=== PATIENT | female | born 1955 | race Caucasian/White ===

== ENCOUNTER 2016-05-03 09:55 | Emergency (ER) | payer OTHER ==
[~2016-05-03] VITALS: Ht 160 cm; Wt 73.4 kg
[~2016-05-03 09:55] MED LIST: ASPI81TA21 PO; BACL20TA PO; CHOL100010 PO; DIAZ-165 PO; DICL1GEL12 TOP; DIME1CAP2 PO; GABA800T PO; LRS20 PO; MRPSR/15 PO; OXYC-106 PO; SERT-234 PO; TIZA4CAP PO
[2016-05-03 09:56] VITALS: TEMP 36.8; Ht 160 cm; Wt 73.4 kg
[2016-05-03] MEDS ORDERED: CHOLTAB11 PO (10:17)
[2016-05-03 11:16] LABS: BASO % 0.3 %; BASO ABS # 0.02 K/uL (0-0.2); COMPLETE YES; EOS % 4.2 %; HEMATOCRIT 42.8 % (37-47); IG% 0.4 %; LYMPH % 28.4 %; LYMPH ABS # 1.91 K/uL (1.2-3.4); MEAN CELL VOLUME 91.3 fL (80-100); MEAN PLATELET VOLUME 10.2 fL (7.4-10.4); MONO % 7.9 %; NEUT % 58.8 %; PLATELET COUNT 209 K/uL (130-400); RED BLOOD COUNT 4.69 M/uL (4.2-5.4); WHITE BLOOD COUNT 6.73 K/uL (4.8-10.8)
[2016-05-03 11:24] LABS: PARTIAL THROMBOPLASTIN RATIO 0.9; PROTHROMBIN TIME (PATIENT) 11.1 SECONDS (9.0-12.0)
[2016-05-03 11:32] LABS: BLOOD UREA NITROGEN 16 mg/dl (7-18); BUN/CREATININE RATIO 29.4 (10-20); C-REACTIVE PROTEIN < 0.29 mg/dl (0-0.29); CALCIUM 8.9 mg/dl (8.5-10.1); CARBON DIOXIDE 29 mmol/L (21-32); CHLORIDE 105 mmol/L (98-107); CREATININE 0.54 mg/dl (0.60-1.20); GLUCOSE 93 mg/dl (70-99); SODIUM 140 mmol/L (136-145)
--- NOTE | 2016-05-03 11:58 | DIAGNOSTIC IMAGING REPORT ---
RIGHT UPPER EXTREMITY VENOUS DOPPLER HISTORY: Right arm pain/swelling at IV site Right COMPARISON STUDY: None. FINDINGS: The right internal jugular vein is patent. There is normal flow within the right subclavian vein. There is normal flow and compressibility within the right axillary, basilic, brachial, radial, ulnar, and visualized cephalic veins. Thrombus within a superficial vein of the distal right forearm. IMPRESSION: No DVT within the right upper extremity. Thrombosed superficial vein within the distal right forearm. Electronically signed by: Waldo Michael M.D. 05/03/2016 11:57 AM Dictated Date/Time: 05/03/2016 11:56 AM
[2016-05-03] MEDS ORDERED: CEPH500C PO (13:10)
--- NOTE | 2016-05-03 13:11 | EMERGENCY ROOM VISIT NOTE ---
History First contact with patient: 10:14 Chief Complaint: SWELLING TO EXTREMITY Stated Complaint: SWOLLEN VEIN IN ARM History of Present Illness The patient is a 60 year old female who presents to the Emergency Department by private vehicle for evaluation of pain and swelling to a vein in the RIGHT arm. The patient has a significant past medical history of multiple sclerosis. She was being treated Saturday through Saturday in the [facility] with high-dose steroids. She reports that she noticed pain and irritation to the vein on the dorsal surface of the RIGHT forearm. She contacted Dr. Jain's office who suggested the patient come to the emergency Department for evaluation of a possible blood clot to the affected arm. The patient complains of some tenderness to palpation to the affected area as well as redness. She denies any fevers, chills, nausea, vomiting, or lymphangitic streaking. She reports no history of blood clots or bleeding disorders. She rates her current discomfort as a 4/10. Review of Systems A complete 10-point Review of Systems was discussed with the patient, with pertinent positives and negatives listed in the History of Present Illness. All remaining Review of Systems questions can be considered negative unless otherwise specified. Past Medical/Surgical History Medical Problems: (1) Cervical spinal stenosis (2) Multiple sclerosis (3) Spinal Stenosis-Lumbar Family History Diabetes mellitus FH: heart disease Social History Smoking Status: Former Smoker Alcohol Use: none Drug Use: none Marital Status: Housing Status: lives with family Occupation Status: employed Current/Historical Medications Scheduled Aspirin Enteric Coated (Ecotrin Or Generic), 81 MG PO HS Baclofen (Lioresal), 20 MG PO BID Cholecalciferol (D-5000), 1 TAB PO DAILY Dimethyl Fumarate (Tecfidera), 240 MG PO BID Gabapentin (Neurontin), 800 MG PO BID Sertraline (Zoloft), 200 MG PO QPM Scheduled PRN Diazepam (Valium), 5 MG PO TID PRN for spasms Diclofenac Sodium (Topical) (Voltaren 1% Top Gel), 1 DOSE TOP QID PRN for Pain Morphine Sulfate (Morphine Sulfate ER), 15 MG PO Q12 PRN for Pain Oxycodone/Acetaminophen 10MG/325MG (Percocet 10MG/325MG), 1 TAB PO BID PRN for Pain Tizanidine (Zanaflex), 4 MG PO TID PRN for UNKN Allergies Coded Allergies: BEE STING (Verified Allergy, Severe, THROAT SWELLING, 05/03/16) Gadolinium Derivatives (Verified Allergy, Severe, THROAT SWELLING WITH CT SCAN DYE, 05/03/16) Iodinated Diagnostic Agents (Verified Allergy, Severe, ANAPHYLAXIS-MRI DYE , 05/03/16) Amoxicillin (Unverified Allergy, Intermediate, RASH, 05/03/16) PT HAS HAD RECENTLY AND NO RASH Interferon Beta-1a (Verified Allergy, Mild, UNSURE, 05/03/16) PER PT-NOT SURE ALLERGY BUT MED STOPPED WORKING ANY MORE Corticosteroids (Verified Allergy, Unknown, UNSURE, 05/03/16) SKIN TESTED WEEK OF 03/24/[address] SIMMONS-NOT ALLERGIC PER PT Cyclobenzaprine (Verified Allergy, Unknown, "SORE ON MY MOUTH." SORE JAW AND EAR., 05/03/16) Hydromorphone (Verified Adverse Reaction, Unknown, UNSURE-BECAME TOO SEDATED-NOT ALLERGIC PER PT, 05/03/16) Physical Exam Vital Signs Date Time Temp Pulse Resp B/P Pulse Ox O2 Delivery O2 Flow Rate FiO2 05/03/16 13:26 71 18 135/69 96 05/03/16 12:15 67 17 125/62 98 Room Air 05/03/16 09:56 36.8 74 18 132/85 99 Room Air Pain Rating (0-10): 4 Physical Exam VITAL SIGNS - Vital signs and nursing notes were reviewed. GENERAL - 60-year-old female appearing her stated age and in noticeable discomfort throughout the exam. MUSCULOSKELETAL - mild erythema noted over the dorsal surface of the mid RIGHT forearm. Mildly tender to palpation. No palpable cords. No warmth to touch. No lethargic streaking. No ecchymosis noted. NEUROLOGIC - SENSORY: Spinothalamic tract was found to be intact with ability to discriminate sharp versus dull sensation at the level of the RIGHT shoulder down to the fingertips. No sensory deficits of the dorsal column were appreciated utilizing light touch for evaluation. VASCULAR - Capillary refill was brisk. +3/5 radial pulse palpated. Medical Decision & Procedures ER Provider Diagnostic Interpretation: Radiological imaging and reports were reviewed by myself. Radiologist's Interpretation as follows: RIGHT UPPER EXTREMITY VENOUS DOPPLER HISTORY: Right arm pain/swelling at IV site Right COMPARISON STUDY: None. FINDINGS: The right internal jugular vein is patent. There is normal flow within the right subclavian vein. There is normal flow and compressibility within the right axillary, basilic, brachial, radial, ulnar, and visualized cephalic veins. Thrombus within a superficial vein of the distal right forearm. IMPRESSION: No DVT within the right upper extremity. Thrombosed superficial vein within the distal right forearm. Laboratory Results 05/03/16 11:00 Red Blood Count 4.69, Mean Corpuscular Volume 91.3, Mean Corpuscular Hemoglobin 32.0, Mean Corpuscular Hemoglobin Concent 35.0, Mean Platelet Volume 10.2, Neutrophils (%) (Auto) 58.8, Lymphocytes (%) (Auto) 28.4, Monocytes (%) (Auto) 7.9, Eosinophils (%) (Auto) 4.2, Basophils (%) (Auto) 0.3, Neutrophils # (Auto) 3.96, Lymphocytes # (Auto) 1.91, Monocytes # (Auto) 0.53, Eosinophils # (Auto) 0.28, Basophils # (Auto) 0.02 05/03/16 11:00 Test 05/03/16 11:00 White Blood Count 6.73 K/uL (4.8-10.8) Red Blood Count 4.69 M/uL (4.2-5.4) Hemoglobin 15.0 g/dL (12.0-16.0) Hematocrit 42.8 % (37-47) Mean Corpuscular Volume 91.3 fL (80-100) Mean Corpuscular Hemoglobin 32.0 pg (25-34) Mean Corpuscular Hemoglobin Concent 35.0 g/dl (32-36) Platelet Count 209 K/uL (130-400) Mean Platelet Volume 10.2 fL (7.4-10.4) Neutrophils (%) (Auto) 58.8 % Lymphocytes (%) (Auto) 28.4 % Monocytes (%) (Auto) 7.9 % Eosinophils (%) (Auto) 4.2 % Basophils (%) (Auto) 0.3 % Neutrophils # (Auto) 3.96 K/uL (1.4-6.5) Lymphocytes # (Auto) 1.91 K/uL (1.2-3.4) Monocytes # (Auto) 0.53 K/uL (0.11-0.59) Eosinophils # (Auto) 0.28 K/uL (0-0.5) Basophils # (Auto) 0.02 K/uL (0-0.2) RDW Standard Deviation 42.9 fL (36.4-46.3) RDW Coefficient of Variation 12.9 % (11.5-14.5) Immature Granulocyte % (Auto) 0.4 % Immature Granulocyte # (Auto) 0.03 K/uL (0.00-0.02) Prothrombin Time 11.1 SECONDS (9.0-12.0) Prothromb Time International Ratio 1.0 (0.9-1.1) Activated Partial Thromboplast Time 22.7 SECONDS (21.0-31.0) Partial Thromboplastin Ratio 0.9 Anion Gap 6.0 mmol/L (3-11) Est Creatinine Clear Calc Drug Dose 106.3 ml/min Estimated GFR () 118.9 Estimated GFR (Non- 102.6 BUN/Creatinine Ratio 29.4 (10-20) Calcium Level 8.9 mg/dl (8.5-10.1) C-Reactive Protein < 0.29 mg/dl (0-0.29) Medications Administered Medications (Trade) Dose Ordered Sig/Dilip Route Start Time Stop Time Status Last Admin Dose Admin Cephalexin Monohydrate (Keflex Cap) 500 mg NOW ONCE PO 05/03/16 13:15 05/03/16 13:16 DC 05/03/16 13:24 500 MG ED Course Patient was seen and evaluated by myself. Labs were drawn, saline lock in place. Ultrasound of the RIGHT upper extremities was obtained. Laboratory results demonstrate no acute leukocytosis, worrisome anemia, or bandemia. Ultrasound results demonstrate from of phlebitis. Laboratory results and imaging studies were reviewed with the patient who acknowledges understanding. She was encouraged to utilize warm moist heat to the area as well as NSAIDs. She was provided Keflex for prophylactic treatment in the event that this is an early cellulitis. The patient was instructed to follow-up with her primary care provider in one week for repeat ultrasound. She was educated on worrisome symptoms for return visit to the emergency department. Patient discharged home in good condition. Medical Decision Given the patient's presentation and exam findings, I did elect to perform the above-mentioned workup. The patient presents today with pain, swelling, and redness after IV site. She has no leukocytosis. Ultrasound demonstrates thrombophlebitis. She will utilize NSAIDs and warm heat to the area. She was prophylactically placed on Keflex. She will follow-up with her primary care provider in one week for repeat ultrasound. She will return for any changing/ worsening symptoms. Patient discharged home afebrile and in good condition. In the evaluation and treatment of this patient, the following differential diagnoses were considered: Cellulitis, dermatitis, foreign body, abscess, amongst others. Impression Primary Impression: Superficial thrombophlebitis Departure Information Dispostion Home / Self-Care Condition GOOD Referrals Avi Dean M.D. (PCP) Patient Instructions ED Phlebitis Superficial, My [facility] Additional Instructions You have been treated in the Emergency Department today for your Phlebitis. This is an irritation of a vein close to the surface of the skin. The irritation you are experiencing can be minimized with warm, moist heat. You can use a washcloth soaked in warm water applied over the affected area. The heat helps to decrease the irritation and soothe the irritation. You were prescribed Keflex to be taken as prescribed. This is an antibiotic. All antibiotics have the potential to cause diarrhea. Stop this medication and contact a medical provider if you were to develop any significant adverse side effects including: wheezing, shortness of breath, passing out, vomiting, or a diffuse rash. Always take antibiotics as directed and COMPLETE the ENTIRE course regardless of the improvement of your symptoms. In addition, you should use: - Regular strength (200 mg/tab) Advil (ibuprofen) 1-2 tabs every 4-6 hours as needed. Do not exceed a dose of 3200 mg per day. Ibuprofen is an anti- inflammatory that will help to decrease the inflammation of the vein and decrease your discomfort. You should return to the Emergency Department if your symptoms worsen despite the treatment plan outlined above, or if you develop the following symptoms: increased pain, swelling, streaking of the affected area, fevers, or movement of the discomfort further up your arm. Problem Qualifiers Primary Impression: Superficial thrombophlebitis Superficial thrombophlebitis-Involved body area: upper extremity Laterality: right Qualified Codes: I80.8 - Phlebitis and thrombophlebitis of other sites
[2016-05-03] MEDS ORDERED: CEPHALEXIN MONOHYDRATE 250 MG CAP PO ONE (13:15)
[2016-05-03 13:26] VITALS: BP 135/69; PULSE 71; O2SAT 96
[2016-07-12] MEDS ORDERED: ALBU18002 INH (14:45)
[2016-07-12] MEDS ORDERED: BENZ100C6 PO (15:13)
[2016-07-12] MEDS ORDERED: GABA1CAP5 PO (15:13)
[2016-07-12] MEDS ORDERED: SUMA100T16 PO (15:13)
[2016-07-12] MEDS ORDERED: BACL10TA PO (15:16)
[2016-11-29] MEDS ORDERED: [UNRECOGNIZED DRUG - REMARK] IV (12:37)
== END 2016-05-03 13:26 | disposition home or self-care (01) ==
LOC: C.EDB 09:56 → C.EDA 13:26
DX: I80.8 Phlebitis and thrombophlebitis of other sites (principal); G35 Multiple sclerosis; Z87.891 Personal history of nicotine dependence; Z79.82 Long term (current) use of aspirin

== ENCOUNTER → 2016-05-10 | Outpatient (CLI) | payer OTHER ==
[~2016-05-10] MED LIST changes: +ALBU18002 INH; +BACL10TA PO; +BENZ100C6 PO; -CHOL100010 PO; +CHOLTAB11 PO; +GABA1CAP5 PO; -LRS20 PO; +SUMA100T16 PO; +[UNRECOGNIZED DRUG - REMARK] IV
--- NOTE | 2016-05-10 14:17 | DIAGNOSTIC IMAGING REPORT ---
CHEST 2 VIEWS ROUTINE CLINICAL HISTORY: ACUTE BRONCHITIS W BRONCHOSPASM COUGH COMPARISON STUDY: 04/05/2016 FINDINGS: The cardiac and mediastinal contours are normal. There is no evidence of focal pulmonary consolidation. There is no evidence of failure. No pleural effusions are visualized.[ There are postsurgical changes within the cervical spine. IMPRESSION: No active disease in the chest. Electronically signed by: Tre Velez M.D. 05/10/2016 2:16 PM Dictated Date/Time: 05/10/2016 2:15 PM
== END | disposition home or self-care (01) ==
LOC: C.RADPV 14:01
PROVIDERS: ATTEND Nurse Practitioner
DX: J20.9 Acute bronchitis, unspecified (principal); R05 Cough

== ENCOUNTER → 2016-05-17 | Outpatient (CLI) | payer OTHER ==
--- NOTE | 2016-05-17 13:21 | DIAGNOSTIC IMAGING REPORT ---
MRI OF THE BRAIN WITHOUT CONTRAST CLINICAL HISTORY: Multiple sclerosis. Optic neuritis. Vision loss. COMPARISON STUDY: MRI of the brain November 30, 2015. TECHNIQUE: Utilizing a 1.5 Bita magnet and dedicated coil, multiplanar, multiecho imaging of the brain was performed without IV contrast. Thin cut FLAIR imaging was performed according to the multiple sclerosis protocol. FINDINGS: There are no areas restricted diffusion. No acute intracranial hemorrhage, midline shift or mass effect is present. Ventricular system is normal. Basilar cisterns are patent. No extra-axial collections are present. Flow-voids for the major intracranial vessels are present. Numerous subcortical and periventricular white matter T2 hyperintense foci are similar to exam of November 30, 2015. No new areas of signal abnormality are identified. Active demyelination is suboptimally assessed on this unenhanced exam. Calvarial signal is maintained. Orbits are unremarkable. Sensitivity for detection of optic neuritis is also diminished on this unenhanced study. IMPRESSION: 1. No acute intracranial findings. 2. No change in numerous white matter T2 hypertense foci since MRI of November 30, 2015. Unchanged appearance of the brain. Electronically signed by: Kedar Narvaez M.D. 05/17/2016 1:19 PM Dictated Date/Time: 05/17/2016 1:12 PM
== END | disposition home or self-care (01) ==
LOC: C.MRIBC 12:20
PROVIDERS: ATTEND Psychiatry & Neurology Neurology
DX: G35 Multiple sclerosis (principal); H46.9 Unspecified optic neuritis

== ENCOUNTER → 2016-06-15 | Outpatient (CLI) | payer OTHER ==
[~2016-06-15] MED LIST changes: +CPR500 PO
[2016-06-19 23:41] LABS: JCV ANTIBODY NEGATIVE; JCV INDEX 0.09
== END | disposition home or self-care (01) ==
LOC: C.LABSPEC 17:39
PROVIDERS: ATTEND Psychiatry & Neurology Neurology
DX: G35 Multiple sclerosis (principal)

== ENCOUNTER → 2016-06-20 | Outpatient (CLI) | payer OTHER ==
[2016-06-20 17:04] LABS: HEMATOCRIT 43.3 % (37-47); MEAN CELL VOLUME 92.3 fL (80-100); MEAN CORPUSCULAR HEMOGLOBIN 31.3 pg (25-34); MEAN CORPUSCULAR HGB CONC 33.9 g/dl (32-36); MEAN PLATELET VOLUME 10.6 fL (7.4-10.4); PLATELET COUNT 222 K/uL (130-400); RED BLOOD COUNT 4.69 M/uL (4.2-5.4); WHITE BLOOD COUNT 5.09 K/uL (4.8-10.8)
[2016-06-20 17:40] LABS: ALT/SGPT 22 U/L (12-78); AST/SGOT 10 U/L (15-37); BLOOD UREA NITROGEN 18 mg/dl (7-18); BUN/CREATININE RATIO 24.1 (10-20); CALCIUM 9.1 mg/dl (8.5-10.1); CARBON DIOXIDE 29 mmol/L (21-32); CHLORIDE 106 mmol/L (98-107); CREATININE 0.75 mg/dl (0.60-1.20); GLUCOSE 92 mg/dl (70-99); POTASSIUM 4.5 mmol/L (3.5-5.1); SODIUM 142 mmol/L (136-145)
[2016-06-20 17:43] LABS: ALB/GLOB RATIO 1.3 (0.9-2); ALKALINE PHOSPHATASE 63 U/L (45-117)
== END | disposition home or self-care (01) ==
LOC: C.LABBC 15:34
PROVIDERS: ATTEND Psychiatry & Neurology Neurology
DX: G35 Multiple sclerosis (principal); R53.83 Other fatigue; E55.9 Vitamin D deficiency, unspecified

== ENCOUNTER → 2016-07-10 | Outpatient (CLI) | payer OTHER ==
[~2016-07-10] MED LIST changes: +NATA1INJ IV; +NRN800 PO
[2016-07-10 16:41] LABS: BASO % 0.3 %; BASO ABS # 0.02 K/uL (0-0.2); COMPLETE YES; EOS % 2.2 %; HEMATOCRIT 41.2 % (37-47); LYMPH % 27.2 %; LYMPH ABS # 1.88 K/uL (1.2-3.4); MEAN CELL VOLUME 92.2 fL (80-100); MEAN CORPUSCULAR HEMOGLOBIN 31.5 pg (25-34); MEAN CORPUSCULAR HGB CONC 34.2 g/dl (32-36); MEAN PLATELET VOLUME 10.6 fL (7.4-10.4); MONO % 8.3 %; PLATELET COUNT 207 K/uL (130-400); RED BLOOD COUNT 4.47 M/uL (4.2-5.4)
== END | disposition home or self-care (01) ==
LOC: C.LAB 15:14
PROVIDERS: ATTEND Surgery
DX: I87.8 Other specified disorders of veins (principal)

== ENCOUNTER 2016-07-19 07:14 | Day surgery (SDC) | payer OTHER ==
[2016-07-12 14:45] VITALS: BMI 28.0
[~2016-07-19] VITALS: Ht 157.5 cm; Wt 70.9 kg
[~2016-07-19 07:14] MED LIST changes: -BACL20TA PO; -CPR500 PO; -DIME1CAP2 PO; -GABA800T PO; +LACTATED RINGER'S 1000ML 1,000 ML IV SCH; -MRPSR/15 PO; -NATA1INJ IV; -NRN800 PO; -[UNRECOGNIZED DRUG - REMARK] IV
[2016-07-19] MEDS ORDERED: FENTANYL CITRATE INJ 50 MCG/1 ML 2 ML VIAL ONE (07:56)
[2016-07-19] MEDS ORDERED: PROPOFOL IV EMULSION 10 MG/ML 20 ML VIAL IV ONE (07:56)
[2016-07-19 08:06] VITALS: BP 116/65; PULSE 58; TEMP 36.7; O2SAT 97; Ht 157.5 cm; Wt 70.9 kg
--- NOTE | 2016-07-19 08:20 | History & Physical Bridge Note ---
H&P Re-Evaluation Bridge Note: I have examined the patient, reviewed the History & Physical and in the interval since the performance of the History & Physical I have noted the following changes of clinical significance: No changes noted procedure explained to pt in waiting room
--- NOTE | 2016-07-19 08:36 | Discharge Instructions ---
Discharge Instructions Date of Service Jul 19, 2016. Visit Reason for Visit: Poor Venous Access Discharge Discharge Diagnosis / Problem: A-port Discharge Goals Goal(s): Improve disease control Activity Recommendations Activity Limitations: as noted below Shower/Bathe: tomorrow Anesthesia . Post Anesthesia Instructions: If you have had General Anesthesia or IV Sedation: * Do not drive today. * Resume driving when surgeon permits. * Do not make important decisions or sign legal documents today. * Call surgeon for: 1. Temperature elevations greater than 101 degrees F. 2. Uncontrollable pain. 3. Excessive bleeding. 4. Persistent nausea and vomiting. 5. Medication intolerance (nausea, vomiting or rash). * For nausea and vomiting use only clear liquids such as: tea, soda, bouillon until nausea subsides, then gradually increase diet as tolerated. * If you have any concerns or questions, call your surgeon's office. If physician is unavailable and it is an emergency, call 911 or go to the nearest emergency room. . Instructions / Follow-Up Instructions / Follow-Up Dr. Mcguire as needed for any questions or concerns Diet Recommendations Recommended Home Diet: no limitations Pending Studies Studies pending at discharge: no Medical Emergencies . Who to Call and When: Medical Emergencies: If at any time you feel your situation is an emergency, please call 911 immediately. . Non-Emergent Contact Non-Emergency issues call your: Surgeon Call Non-Emergent contact if: you have a fever, temperature is above 101.5, your pain is not controlled, wound has increased redness . . "Provider Documentation" section prepared by Enmanuel Woodall.
[2016-07-19] MEDS ORDERED: LIDOCAINE HCL 1% 20 ML VIAL ONE (08:42)
[2016-07-19] MEDS ORDERED: BACITRACIN 50000 UNIT VIAL ONE (08:42)
[2016-07-19] MEDS ORDERED: MIDAZOLAM HCL 1 MG/ML 2ML VIAL ONE (08:44)
[2016-07-19] MEDS ORDERED: CEFAZOLIN SOD 1 GM VIAL ONE (09:09)
[2016-07-19] MEDS ORDERED: LACTATED RINGER'S 1000ML 1,000 ML IV SCH (09:32)
[2016-07-19] MEDS ORDERED: ONDANSETRON INJ 2 MG/ML 2 ML VIAL IV PRN (09:45)
[2016-07-19] MEDS ORDERED: MoRPHine SULFATE 2 MG/ML CARP IV PRN (09:45)
[2016-07-19] MEDS ORDERED: OXYCODONE/ACETAMINOPHEN 5-325 TAB PO PRN (09:45)
--- NOTE | 2016-07-19 09:54 | [facility] Post Operative Brief Note ---
Immediate Operative Summary Operative Date Jul 19, 2016. Pre-Operative Diagnosis Poor venous access Post-Operative Diagnosis Poor venous access Procedure(s) Performed Infusaport Insertion, left subclavian(MRI compatible) Surgeon Dr. Kevin Mcguire Road Engineer [employer] Surgeon(s) Enmanuel Woodall PA-C Estimated Blood Loss 1.25CC Findings as preop Specimens None per surgeon Anesthesia 1 %xyl(10cc) and iv sedation
--- NOTE | 2016-07-19 09:59 | DIAGNOSTIC IMAGING REPORT ---
CHEST ONE VIEW PORTABLE CLINICAL HISTORY: port placement tube position COMPARISON STUDY: No previous studies for comparison. FINDINGS: Central catheter place in superior vena cava. No evidence pneumothorax. Lungs remain clear. IMPRESSION: Central catheter placed in the superior vena cava. No evidence pneumothorax Electronically signed by: Buster Youssef M.D. 07/19/2016 9:57 AM Dictated Date/Time: 07/19/2016 9:49 AM
[2016-07-19] MEDS ORDERED: FENTANYL CITRATE INJ 50 MCG/1 ML 2 ML VIAL IV PRN (10:00)
[2016-07-19] MEDS ORDERED: ATROPINE SULFATE 0.1 MG/ML 5ML SYR IV PRN (10:00)
[2016-07-19] MEDS ORDERED: EpHEDrine SULFATE INJ 50 MG/ML AMP IV PRN (10:00)
--- NOTE | 2016-07-19 10:02 | Anesthesiology Progress Note ---
Anesthesia Post Op Note Date & Time Jul 19, 2016 at 10:01 Vital Signs Pain Intensity: 0 Vital Signs Past 12 Hours Date Time Temp Pulse Resp B/P Pulse Ox O2 Delivery O2 Flow Rate FiO2 07/19/16 09:50 57 18 112/67 95 Mask 10 07/19/16 09:41 36.0 58 14 123/71 100 Mask 10 07/19/16 08:06 36.7 58 18 116/65 97 Room Air Notes Mental Status: alert / awake / arousable, participated in evaluation Pt Amnestic to Procedure: Yes Nausea / Vomiting: adequately controlled Pain: adequately controlled Airway Patency, RR, SpO2: stable & adequate BP & HR: stable & adequate Hydration State: stable & adequate Anesthetic Complications: no major complications apparent
[2016-07-19] MEDS ORDERED: SUMATRIPTAN SUCCINATE 50 MG TAB PO PRN (10:15)
[2016-07-19] MEDS ORDERED: SUMATRIPTAN SUCC TAB 100 MG TAB PO PRN (10:15)
--- NOTE | 2016-07-19 10:16 | OPERATIVE REPORT ---
DATE OF OPERATION: 07/19/2016 PREOPERATIVE DIAGNOSIS: Lack of venous access. POSTOPERATIVE DIAGNOSIS: Same. PROCEDURE: MRI compatible port placed through the left subclavian. SURGEON: Dr. Mcguire. OPERATION AND FINDINGS: SUMMARY: The patient was brought into the operating room theater, roll placed underneath her shoulders linearly. The left chest and neck was prepped with Betadine scrubbing solution and properly draped. Systemic antibiotics was given. The patient was placed in Trendelenburg position. 1% Xylocaine without epinephrine using a total 10 mL throughout the procedure. We infiltrated at the end clavicle. Percutaneously we accessed the subclavian vein. We did not get it at the first passage, on the second passage it was easily appreciated, guidewire followed, fluoroscopically positioned in the superior vena cava, right atrium. At this point, we made a counter incision below this approximately an inch and a half below using more local anesthetic. A transverse incision was made about an inch and a half long, deepened through subcutaneous tissue. We then created a pocket inferior to that to the point that we were able to palpate the reservoir, which we tried and could easily appreciate it through the skin after we denuded some more subcutaneous tissue. At this point, we then passed the guidewire from the puncture site onto this cavity area where we then placed the patient in Trendelenburg position, a 7-[place] introducer was positioned. The catheter was positioned. Fluoroscopically it was in the right ventricle area. We then pulled it back to approximately 22 cm from the insertion site underneath the clavicle where it was in the right atrial area. We then cut the catheter, placed a black ring bolster to secure it in place to the reservoir. We aspirated and flushed quite easily. Then we placed the catheter in previously made pocket and sutured it in 3 places with the 2-0 nylon suture, making sure that it was in good alignment. We closed the wound in multiple layer 2-0 Dexon interrupted then 4-0 Monocryl. Steri-Strips applied. Prior to leaving the room, we reimaged the system. I aspirated percutaneously and flushed easily. Dressing was applied. The procedure was tolerated well by the patient. Estimated blood loss 2 mL. The patient was taken to the recovery room in good condition. I attest to the content of the Intraoperative Record and any orders documented therein. Any exceptio ns are noted below.
[2016-07-19 10:50] VITALS: BP 115/58; PULSE 60; TEMP 36.4; O2SAT 96
[2016-07-19 11:20] VITALS: BP 112/55; PULSE 60; TEMP 36.5; O2SAT 98
[2016-07-19 11:50] VITALS: BP 123/56; PULSE 68; TEMP 36.5; O2SAT 96
--- NOTE | 2016-07-19 12:43 | Medical Student: [facility] ---
Immediate Operative Summary Operative Date Jul 19, 2016. Pre-Operative Diagnosis poor venous access Post-Operative Diagnosis poor venous access Procedure(s) Performed Infusaport insertion in left subclavian vein Surgeon Dr. Mcguire Estimated Blood Loss 1.25 cc Findings none Specimens none Complication(s) None Disposition Recovery Room / PACU
[2016-11-29] MEDS ORDERED: [UNRECOGNIZED DRUG - REMARK] IV (12:37)
[2017-01-10] MEDS ORDERED: OXYC-106 PO (11:42)
[2017-01-10] MEDS ORDERED: CPR500 PO (11:42)
[2017-02-07] MEDS ORDERED: NRN800 PO (10:22)
[2017-02-07] MEDS ORDERED: NATA1INJ IV (10:22)
== END 2016-07-19 11:55 | disposition home or self-care (01) ==
LOC: C.ACU 07:14
PROVIDERS: ATTEND Surgery
DX: I87.8 Other specified disorders of veins (principal); G35 Multiple sclerosis; Z79.82 Long term (current) use of aspirin; Z79.899 Other long term (current) drug therapy

== ENCOUNTER → 2016-10-01 | Outpatient (CLI) | payer OTHER ==
[~2016-10-01] MED LIST changes: +CPR500 PO; -LACTATED RINGER'S 1000ML 1,000 ML IV SCH; +NATA1INJ IV; +NRN800 PO; +[UNRECOGNIZED DRUG - REMARK] IV
--- NOTE | 2016-10-01 12:14 | DIAGNOSTIC IMAGING REPORT ---
RIGHT SHOULDER MIN 2 VIEWS ROUTINE CLINICAL HISTORY: Bilateral shoulder pain. COMPARISON: None FINDINGS: Anterior cervical spine fusion and left subclavian [id number] are incidentally noted. Alignment of the right shoulder is anatomic. There is no fracture or osseous lesion. There is mild arthritis of the AC joint. IMPRESSION: 1. No acute fracture or dislocation of the right shoulder. 2. Moderate osteoarthritis of the right acromioclavicular joint. Electronically signed by: Kedar Narvaez M.D. 10/01/2016 12:13 PM Dictated Date/Time: 10/01/2016 12:12 PM
--- NOTE | 2016-10-01 12:17 | DIAGNOSTIC IMAGING REPORT ---
LEFT HAND MIN 3 VIEWS ROUTINE CLINICAL HISTORY: BILAT SHOULDER Pain, hand JOINT PAIN, SWELL HAND LT/RT COMPARISON: None. DISCUSSION: Significant degenerative change of the interphalangeal joints throughout. Mild degenerative change of the metacarpal phalangeal joints. Mild generalized soft tissue edema. Possible old fracture middle phalanx left third finger. No evidence for acute bony pathology. IMPRESSION: Degenerative change. Soft tissue edema. Electronically signed by: Buster Youssef M.D. 10/01/2016 12:16 PM Dictated Date/Time: 10/01/2016 12:14 PM
--- NOTE | 2016-10-01 12:17 | DIAGNOSTIC IMAGING REPORT ---
LEFT SHOULDER MIN 2 VIEWS ROUTINE CLINICAL HISTORY: Bilateral shoulder pain. COMPARISON: None FINDINGS: A left subclavian [id number] and anterior cervical spine fusion are incidentally noted. No acute fracture is identified. There has been possible previous distal left clavicular resection. Several calcific densities measuring up to 7 mm along the lateral aspect of the left humeral head could reflect calcific tendinitis. IMPRESSION: 1. No acute fracture. 2. Possible calcific tendinitis of the left rotator cuff. Electronically signed by: Kedar Narvaez M.D. 10/01/2016 12:15 PM Dictated Date/Time: 10/01/2016 12:13 PM
--- NOTE | 2016-10-01 12:18 | DIAGNOSTIC IMAGING REPORT ---
RIGHT HAND 3 VIEWS CLINICAL HISTORY: Right hand pain. FINDINGS: 3 views of the right hand are obtained. No prior studies are available for comparison at the time of dictation. The skeletal structures are well mineralized. No fracture is seen. The fifth distal phalanx appears diminutive/truncated. Mild osteoarthritic change is noted involving the interphalangeal joints and the first metacarpophalangeal joint. Minimal erosion is noted at the second through fourth distal interphalangeal joints. The overlying soft tissues are within normal. IMPRESSION: Osteoarthritic change as above, greatest involving the interphalangeal joints. No acute bony abnormality is identified. Electronically signed by: Karson Salas M.D. 10/01/2016 12:16 PM Dictated Date/Time: 10/01/2016 12:14 PM
[2016-10-01 18:23] LABS: BLOOD UREA NITROGEN 15 mg/dl (7-18); BUN/CREATININE RATIO 23.9 (10-20); CALCIUM 9.4 mg/dl (8.5-10.1); CARBON DIOXIDE 29 mmol/L (21-32); CHLORIDE 105 mmol/L (98-107); CREATININE 0.64 mg/dl (0.60-1.20); GLUCOSE 95 mg/dl (70-99); POTASSIUM 4.5 mmol/L (3.5-5.1); SODIUM 140 mmol/L (136-145)
[2016-10-01 18:27] LABS: RHEUMATOID FACTOR < 10.0 U/mL (0-15)
== END | disposition home or self-care (01) ==
LOC: C.LABPVFM 11:35
PROVIDERS: ATTEND Nurse Practitioner
DX: M25.512 Pain in left shoulder (principal); M25.549 Pain in joints of unspecified hand; M25.442 Effusion, left hand; M25.441 Effusion, right hand

== ENCOUNTER → 2016-12-21 | Outpatient (CLI) | payer OTHER ==
[~2016-12-21] MED LIST changes: -NATA1INJ IV; -NRN800 PO
--- NOTE | 2016-12-21 07:51 | DIAGNOSTIC IMAGING REPORT ---
MRI OF THE LEFT KNEE WITHOUT CONTRAST CLINICAL HISTORY: Left knee pain and swelling. Evaluate for meniscal tear. COMPARISON STUDY: Left knee radiographs October 30, 2016. TECHNIQUE: Utilizing a 1.5 Bita magnet and dedicated coil, multiplanar, multiecho imaging of the left knee was performed without intravenous or intraarticular contrast. FINDINGS: Alignment of the left knee is anatomic. There is a small to moderate left knee joint effusion. No marrow edema or marrow replacement is present. Note is made of severe chondrosis within the medial compartment with near complete loss of the cartilage of the medial femoral condyle and medial tibial plateau. There is moderate chondrosis within the patellofemoral compartment and mild chondrosis within the lateral compartment. Associated osteophytosis. The cruciate and collateral ligaments are intact. There is no lateral meniscal tear. The medial meniscus is partially extruded. There is an oblique tear of the body and anterior horn of the medial meniscus. No mass or fluid collection shown adjacent to the left knee. A few small ganglion cysts are incidentally noted posterior to the posterior cruciate ligament. IMPRESSION: 1. Oblique tear of the body and anterior horn of the medial meniscus which is partially extruded. No lateral meniscal tear. 2. Severe chondrosis of the medial compartment, moderate chondrosis of the patellofemoral compartment and mild chondrosis of the lateral compartment with associated osteophytosis. 3. Small to moderate left knee joint effusion. 4. Intact cruciate and collateral ligaments. Electronically signed by: Kedar Narvaez M.D. 12/21/2016 7:50 AM Dictated Date/Time: 12/21/2016 7:44 AM
== END | disposition home or self-care (01) ==
LOC: C.MRIBC 06:43
PROVIDERS: ATTEND Orthopaedic Surgery
DX: S83.242A Other tear of medial meniscus, current injury, left knee, initial encounter (principal); X58.XXXA Exposure to other specified factors, initial encounter; M92.42 Juvenile osteochondrosis of patella, left knee; M25.462 Effusion, left knee

== ENCOUNTER → 2017-01-01 | Outpatient (CLI) | payer OTHER ==
[2017-01-01 10:14] LABS: BASO % 0.6 %; BASO ABS # 0.03 K/uL (0-0.2); COMPLETE YES; EOS % 4.1 %; HEMATOCRIT 39.5 % (37-47); IG% 0.6 %; LYMPH % 44.2 %; LYMPH ABS # 2.28 K/uL (1.2-3.4); MEAN CELL VOLUME 90.4 fL (80-100); MEAN CORPUSCULAR HEMOGLOBIN 30.4 pg (25-34); MEAN CORPUSCULAR HGB CONC 33.7 g/dl (32-36); MONO % 9.5 %; PLATELET COUNT 197 K/uL (130-400); RED BLOOD COUNT 4.37 M/uL (4.2-5.4); WHITE BLOOD COUNT 5.16 K/uL (4.8-10.8)
[2017-01-01 10:29] LABS: BLOOD UREA NITROGEN 14 mg/dl (7-18); BUN/CREATININE RATIO 25.8 (10-20); CALCIUM 9.2 mg/dl (8.5-10.1); CARBON DIOXIDE 30 mmol/L (21-32); CHLORIDE 106 mmol/L (98-107); CREATININE 0.55 mg/dl (0.60-1.20); GLUCOSE 96 mg/dl (70-99); POTASSIUM 4.4 mmol/L (3.5-5.1); SODIUM 141 mmol/L (136-145)
== END | disposition home or self-care (01) ==
LOC: C.CPL 09:17
PROVIDERS: ATTEND Orthopaedic Surgery
DX: Z01.818 Encounter for other preprocedural examination (principal); M17.12 Unilateral primary osteoarthritis, left knee

== ENCOUNTER → 2017-02-27 | Day surgery (SDC) | payer OTHER ==
[2017-02-07 10:23] VITALS: Ht 160 cm; Wt 75.0 kg
[~2017-02-27] VITALS: Ht 160 cm; Wt 75.0 kg
[~2017-02-27] MED LIST changes: +ATROPINE SULFATE 0.1 MG/ML 5ML SYR IV PRN; +CLINDAMYCIN PHOS 150 MG/ML 2 ML VIAL IV SCH; -CPR500 PO; +DEXAMETHASONE SOD INJ 4 MG/ML VIAL ONE; +EpHEDrine SULFATE INJ 50 MG/ML AMP IV PRN; +EpINEphrine INJ 1MG/ML AMP 1 MG/ML AMP IRRIG ONE; +EpINEphrine INJ 1MG/ML AMP 1 MG/ML AMP ONE; +FENTANYL CITRATE INJ 50 MCG/1 ML 2 ML VIAL ONE; -GABA1CAP5 PO; +GLYCOPYRROLATE INJ 0.2 MG/ML VIAL ONE; +KETOROLAC TROMETHAMINE 30 MG/ML VIAL ONE; +LACTATED RINGER'S 1000ML 1,000 ML IV SCH; +LIDOCAINE HCL 2% 2 ML VIAL (20MG/ML) ONE; +MIDAZOLAM HCL 1 MG/ML 2ML VIAL ONE; +NATA1INJ IV; +NRN800 PO; +ONDANSETRON INJ 2 MG/ML 2 ML VIAL IV PRN; +ONDANSETRON INJ 2 MG/ML 2 ML VIAL ONE; -OXYC-106 PO; +OXYCODONE/ACETAMINOPHEN 5-325 TAB PO PRN; +PROPOFOL IV EMULSION 10 MG/ML 20 ML VIAL IV ONE; +ROPIVACAINE 0.5% 5 MG/ML 30 ML VIAL ONE; +SODIUM CHLORIDE 0.9% 1000ML 1,000 ML IV SCH; -[UNRECOGNIZED DRUG - REMARK] IV
--- NOTE | 2017-02-27 06:44 | History & Physical Bridge - SC ---
H&P Re-Evaluation Bridge Note: I have examined the patient, reviewed the History & Physical and in the interval since the performance of the History & Physical I have noted the following changes of clinical significance: No changes noted
--- NOTE | 2017-02-27 10:32 | Discharge Instructions-SurgCtr ---
Discharge Instructions Date of Service Feb 27, 2017. Visit Reason for Visit: Osteoarthritis Of Knee, Tear Of Medial Meniscus Discharge Discharge Diagnosis / Problem: SAME ABOVE Discharge Goals Goal(s): Decrease discomfort, Improve function Activity Recommendations Activity Limitations: as noted below Lifting Limitations: gradually increase as tolerated Exercise/Sports Limitations: until after follow-up appointment Shower/Bathe: tomorrow Anesthesia . Post Anesthesia Instructions: If you have had General Anesthesia or IV Sedation: * Do not drive today. * Resume driving when surgeon permits. * Do not make important decisions or sign legal documents today. * Call surgeon for: 1. Temperature elevations greater than 101 degrees F. 2. Uncontrollable pain. 3. Excessive bleeding. 4. Persistent nausea and vomiting. 5. Medication intolerance (nausea, vomiting or rash). * For nausea and vomiting use only clear liquids such as: tea, soda, bouillon until nausea subsides, then gradually increase diet as tolerated. * If you have any concerns or questions, call your surgeon's office. If physician is unavailable and it is an emergency, call 911 or go to the nearest emergency room. . Instructions / Follow-Up Instructions / Follow-Up MEDICATIONS: * Resume previous medications unless instructed otherwise by your surgeon. * Always take pain medication on a full stomach or with food to avoid upset stomach. * Do not drink alcohol or drive while taking narcotics. * Ibuprofen or Tylenol may be taken if narcotic not needed. SPECIAL CARE INSTRUCTIONS: __ None _X_ Keep extremity elevated and iced x 48 hours; apply ice 20-30 minutes 8-10 times/day. May remove at night. __ Crutches __ May discard when able __ Brace/Post-op shoe __ 24 hrs/day __ Remove at night _X_ Dressing __ Maintain until seen in office, may shower with plastic over site _X_ Remove dressings in 24-48 hours and then may shower _X_ Cover incisions with band-aids after showering __ Do not remove steri-strips Call physician if chills or temperature rises above 102 degrees or pain unrelieved by prescribed pain medications. Office [phone] Diet Recommendations Home Diet: no limitations Procedures Procedures Performed: Left Knee Arthroscopy Partial Lateral Menisectomy Chondroplasty Pending Studies Studies pending at discharge: no Medical Emergencies . Who to Call and When: Medical Emergencies: If at any time you feel your situation is an emergency, please call 911 immediately. . Non-Emergent Contact Non-Emergency issues call your: Primary Care Provider . . "Provider Documentation" section prepared by Jamal Issa. .
[2017-02-27] MEDS: FENTANYL CITRATE INJ 50 MCG/1 ML 2 ML VIAL IV PRN ×3 (10:57→11:08)
--- NOTE | 2017-02-27 10:57 | OPERATIVE REPORT ---
DATE OF OPERATION: 02/27/2017 PREOPERATIVE DIAGNOSES: Medial meniscal tear and chondromalacia of the left knee. POSTOPERATIVE DIAGNOSES: Lateral meniscus tear and chondromalacia of the left knee. PROCEDURE: Left knee diagnostic arthroscopy with chondroplasty and partial lateral meniscectomy. SURGEON: Dr. Jamal Nguyen. METAL SORTER: Jamal Issa PA-C, whose assistance was necessary for positioning of the leg and helping with instrumentation. ANESTHESIA: General. COMPLICATIONS: None. CONDITION: Stable to PACU. INDICATIONS: Yani is a pleasant 61-year-old female, who presented to my office with chronic left knee pain. X-rays did not show much arthritis. MRI showed some medial compartmental arthritis and possible medial meniscus tear. After failing conservative treatment, she elected to undergo arthroscopy. DESCRIPTION OF PROCEDURE: On 02/27/2017, she arrived at [facility] for the above procedure. She was seen in the preoperative holding area and the operative extremity was identified and signed. She was given a preoperative antibiotic and taken back to the operating room, laid on the table in supine position and put under general anesthesia. The left knee was then prepped and draped in sterile fashion. Time-out was done and the patient and operative extremity was properly identified. A scope was introduced into the lateral parapatellar portal. Diagnostic arthroscopy showed no loose bodies in the suprapatellar pouch. There was a little grade 2 chondromalacia off the undersurface of the patella within the trochlea. The scope was brought into the medial compartment. There was grade 3 and grade 4 chondral changes throughout the distal medial femoral condyle and the tibial plateau. The medial meniscus was grossly intact. A medial parapatellar portal was made under direct visualization. A probe was used to probe the medial meniscus and there was no evidence of tears. A shaver was used in the medial compartment to remove any loose chondral fragments and to complete a chondroplasty. The scope was then brought into the trochlea. ACL and PCL were intact. The scope was then brought into the lateral compartment. There was some tearing of the mid body of the lateral meniscus. A shaver was used to remove the torn portions of the meniscus back to stable margins. The majority of the meniscus was intact. There was no cartilage damage in the lateral compartment. The scope was then placed into the medial parapatellar portal. Repeat diagnostic arthroscopy showed no additional pathology. A shaver was used to irrigate the joint and remove any additional tissue fragments. The knee was irrigated. Arthroscopic instruments were removed. Portal sites were closed with 3-0 nylon. The knee was then injected with 30 mL of Naropin and Toradol. She was then placed in a soft compressive dressing, extubated, transferred to a [facility] and taken to the postanesthesia care unit in stable condition. He tolerated the procedure well. I attest to the content of the Intraoperative Record and any orders documented therein. Any exception s are noted below.
[2017-02-27 11:25] VITALS: TEMP 36.7
--- NOTE | 2017-02-27 12:04 | Anesthesia Progress Nt - [facility] ---
Anesthesia Post Op Note Date & Time Feb 27, 2017 at 12:04 Vital Signs Pain Intensity: 4 Vital Signs Past 12 Hours Date Time Temp Pulse Resp B/P (MAP) Pulse Ox O2 Delivery O2 Flow Rate FiO2 02/27/17 11:25 36.7 66 114/63 (80) 97 Room Air 02/27/17 11:18 74 19 02/27/17 11:18 76 19 97 02/27/17 11:16 104/59 02/27/17 11:14 36.9 68 16 113/48 98 Room Air 02/27/17 11:13 73 15 100 02/27/17 11:13 72 15 02/27/17 11:12 74 21 02/27/17 11:12 83 21 100 02/27/17 11:11 113/48 02/27/17 11:07 62 9 02/27/17 11:07 60 9 100 02/27/17 11:06 113/61 02/27/17 11:02 71 16 02/27/17 11:02 72 16 100 02/27/17 11:01 111/54 02/27/17 10:57 66 13 02/27/17 10:57 65 13 100 02/27/17 10:56 108/57 02/27/17 10:52 76 9 100 02/27/17 10:52 76 9 02/27/17 10:51 124/66 02/27/17 10:49 70 14 100 02/27/17 10:49 70 14 02/27/17 10:46 115/60 02/27/17 10:44 72 16 02/27/17 10:44 72 16 100 02/27/17 10:41 119/77 02/27/17 10:39 74 14 02/27/17 10:39 74 14 100 02/27/17 10:36 116/66 02/27/17 10:34 70 21 100 02/27/17 10:34 70 21 02/27/17 10:31 120/72 02/27/17 10:29 36.1 72 12 120/72 100 Diffusion Mask 6 02/27/17 08:29 36.5 63 18 113/74 (87) 99 Room Air Notes Mental Status: alert / awake / arousable, participated in evaluation Pt Amnestic to Procedure: Yes Nausea / Vomiting: adequately controlled Pain: adequately controlled Airway Patency, RR, SpO2: stable & adequate BP & HR: stable & adequate Hydration State: stable & adequate Anesthetic Complications: no major complications apparent
[2017-02-27 12:10] VITALS: BP 117/68; PULSE 63; O2SAT 99
--- NOTE | 2017-02-27 14:18 | [facility] Post Operative Brief Note ---
Immediate Operative Summary Operative Date Feb 27, 2017. Pre-Operative Diagnosis Osteoarthritis of Knee Tear of Medical Meniscus Post-Operative Diagnosis Same Procedure(s) Performed Left Knee Arthroscopy Partial Lateral Menisectomy Chondroplasty Surgeon Dr. Leyda Nguyen Enterprise Architect Manager Surgeon(s) Leyda Issa PA-C Estimated Blood Loss 5 Findings as above Specimens None Complication(s) None Disposition Recovery Room / PACU
== END | disposition home or self-care (01) ==
LOC: X.SURG 07:38
PROVIDERS: ATTEND Orthopaedic Surgery
DX: S83.282A Other tear of lateral meniscus, current injury, left knee, initial encounter (principal); M94.262 Chondromalacia, left knee; X58.XXXA Exposure to other specified factors, initial encounter; Z87.891 Personal history of nicotine dependence

== ENCOUNTER → 2017-05-30 | Outpatient (CLI) | payer OTHER ==
[~2017-05-30] MED LIST changes: -ATROPINE SULFATE 0.1 MG/ML 5ML SYR IV PRN; +BENZ-54 PO; -BENZ100C6 PO; -CLINDAMYCIN PHOS 150 MG/ML 2 ML VIAL IV SCH; -DEXAMETHASONE SOD INJ 4 MG/ML VIAL ONE; -EpHEDrine SULFATE INJ 50 MG/ML AMP IV PRN; -EpINEphrine INJ 1MG/ML AMP 1 MG/ML AMP IRRIG ONE; -EpINEphrine INJ 1MG/ML AMP 1 MG/ML AMP ONE; -FENTANYL CITRATE INJ 50 MCG/1 ML 2 ML VIAL ONE; -GLYCOPYRROLATE INJ 0.2 MG/ML VIAL ONE; -KETOROLAC TROMETHAMINE 30 MG/ML VIAL ONE; -LACTATED RINGER'S 1000ML 1,000 ML IV SCH; -LIDOCAINE HCL 2% 2 ML VIAL (20MG/ML) ONE; -MIDAZOLAM HCL 1 MG/ML 2ML VIAL ONE; -ONDANSETRON INJ 2 MG/ML 2 ML VIAL IV PRN; -ONDANSETRON INJ 2 MG/ML 2 ML VIAL ONE; -OXYCODONE/ACETAMINOPHEN 5-325 TAB PO PRN; -PROPOFOL IV EMULSION 10 MG/ML 20 ML VIAL IV ONE; -ROPIVACAINE 0.5% 5 MG/ML 30 ML VIAL ONE; -SODIUM CHLORIDE 0.9% 1000ML 1,000 ML IV SCH
== END | disposition home or self-care (01) ==
LOC: C.LABPVFM 12:33
PROVIDERS: ATTEND Nurse Practitioner
DX: R39.9 Unspecified symptoms and signs involving the genitourinary system (principal)

== ENCOUNTER → 2017-06-13 | Outpatient (CLI) | payer OTHER ==
[2017-06-13 09:32] LABS: BASO % 0.3 %; BASO ABS # 0.02 K/uL (0-0.2); EOS % 4.5 %; EOS ABS # 0.36 K/uL (0-0.5); HEMATOCRIT 40.7 % (37-47); HEMOGLOBIN 13.9 g/dL (12.0-16.0); IG# 0.02 K/uL (0.00-0.02); LYMPH % 9.2 %; LYMPH ABS # 0.73 K/uL (1.2-3.4); MEAN CELL VOLUME 91.3 fL (80-100); MEAN CORPUSCULAR HEMOGLOBIN 31.2 pg (25-34); MEAN CORPUSCULAR HGB CONC 34.2 g/dl (32-36); MEAN PLATELET VOLUME 10.7 fL (7.4-10.4); MONO % 8.1 %; MONO ABS # 0.64 K/uL (0.11-0.59); NEUT % 77.6 %; NEUT ABS # 6.16 K/uL (1.4-6.5); NUCLEATED RED BLOOD CELL ABS 0.02 K/uL (0-0); PLATELET COUNT 160 K/uL (130-400); RED CELL DISTRIBUTION WIDTH CV 13.7 % (11.5-14.5); RED CELL DISTRIBUTION WIDTH SD 45.7 fL (36.4-46.3); WHITE BLOOD COUNT 7.93 K/uL (4.8-10.8)
[2017-06-13 09:45] LABS: ALT/SGPT 21 U/L (12-78); AST/SGOT 13 U/L (15-37); BLOOD UREA NITROGEN 18 mg/dl (7-18); CARBON DIOXIDE 28 mmol/L (21-32); CREATININE 0.64 mg/dl (0.60-1.20); GLUCOSE 97 mg/dl (70-99); POTASSIUM 4.3 mmol/L (3.5-5.1); SODIUM 139 mmol/L (136-145)
[2017-06-13 09:47] LABS: ALKALINE PHOSPHATASE 73 U/L (45-117); CHOLESTEROL 316 mg/dl (0-200); LDL CHOLESTEROL CALCULATED 182 mg/dl; TOTAL PROTEIN 7.1 gm/dl (6.4-8.2)
== END | disposition home or self-care (01) ==
LOC: C.LAB 07:13
PROVIDERS: ATTEND Physician Assistant
DX: I10 Essential (primary) hypertension (principal); G35 Multiple sclerosis

== ENCOUNTER → 2017-10-24 | Outpatient (CLI) | payer OTHER ==
[~2017-10-24] MED LIST changes: +ASPI-319 PO; -ASPI81TA21 PO
== END | disposition home or self-care (01) ==
LOC: C.LABPVFM 15:31
PROVIDERS: ATTEND Urology
DX: Z87.440 Personal history of urinary (tract) infections (principal)

== ENCOUNTER → 2017-11-27 | Outpatient (CLI) | payer OTHER ==
[2017-11-27 12:58] LABS: BASO % 0.8 %; BASO ABS # 0.04 K/uL (0-0.2); EOS % 6.4 %; EOS ABS # 0.31 K/uL (0-0.5); HEMATOCRIT 38.4 % (37-47); HEMOGLOBIN 12.9 g/dL (12.0-16.0); IG# 0.01 K/uL (0.00-0.02); LYMPH % 42.4 %; LYMPH ABS # 2.05 K/uL (1.2-3.4); MEAN CELL VOLUME 89.9 fL (80-100); MEAN CORPUSCULAR HEMOGLOBIN 30.2 pg (25-34); MEAN CORPUSCULAR HGB CONC 33.6 g/dl (32-36); MONO % 9.5 %; MONO ABS # 0.46 K/uL (0.11-0.59); NEUT % 40.7 %; NEUT ABS # 1.96 K/uL (1.4-6.5); PLATELET COUNT 160 K/uL (130-400); RED CELL DISTRIBUTION WIDTH CV 13.5 % (11.5-14.5); RED CELL DISTRIBUTION WIDTH SD 44.3 fL (36.4-46.3); WHITE BLOOD COUNT 4.83 K/uL (4.8-10.8)
[2017-11-27 13:14] LABS: ALBUMIN 3.8 gm/dl (3.4-5.0); ALKALINE PHOSPHATASE 63 U/L (45-117); ALT/SGPT 19 U/L (12-78); AST/SGOT 12 U/L (15-37); BLOOD UREA NITROGEN 16 mg/dl (7-18); CALCIUM 8.8 mg/dl (8.5-10.1); CARBON DIOXIDE 31 mmol/L (21-32); CREATININE 0.62 mg/dl (0.60-1.20); GLUCOSE 94 mg/dl (70-99); POTASSIUM 3.9 mmol/L (3.5-5.1); SODIUM 142 mmol/L (136-145); TOTAL PROTEIN 6.6 gm/dl (6.4-8.2)
== END | disposition home or self-care (01) ==
LOC: C.LABPVFM 07:34
PROVIDERS: ATTEND Psychiatry & Neurology Neurology
DX: G35 Multiple sclerosis (principal); N39.41 Urge incontinence; E78.5 Hyperlipidemia, unspecified

== ENCOUNTER 2021-07-21 08:52 | Observation (INO) ==
--- NOTE | 2021-07-18 12:54 | Anesthesiology Consultation ---
Date of Service July 18, 2021 Assessment & Plan (1) Encounter for pre-operative examination: - COVID screening: Per assessment on 07/18: No known COVID-19 positive contacts or current COVID-19 related symptoms. Travel screen- traveled to friends house in [place], [place] (friend healthy/vaccinated/masked during visit). Patient vaccinated. Surgeon arranging preop COVID testing. Awaiting results. - Neurology office visit (07/12/21): "Patient has multiple sclerosis which is fairly stable on Ocrevus. She has fatigue and a cognitive disorder which are stable as well. In fact, she looks "brighter" with a little more energy than I have seen her in a while. Her depression is stable as well.Unfortunately she has a severe left knee condition which requires total knee replacement to be done July 21. Recommendations.. Continue Ocrevus.. try not to work more than 4 hours a day as this will likely lead to increased fatigue and weakness.. Follow-up in 3 months" Chart Review Chart Review: Acceptable Risk for Surgery and Patient NOT seen in Pre Admission Testing History Surgery Operation Date: 07/21/21 13:30 Proposed Procedures p Left Total Knee Arthroplasty - Jamal Nguyen, DO Height/Weight Height: 5 ft 3 in Weight: 68.039 kg Allergies Allergy/AdvReac Type Severity Reaction Status Date / Time bee venom protein (honey bee) Allergy Severe THROAT Verified 07/18/21 11:52 SWELLING Gadolinium-Containing Allergy Severe THROAT Verified 07/18/21 11:52 Contrast Medi SWELLING WITH CT SCAN DYE amoxicillin Allergy Mild RASH Verified 07/18/21 11:52 hydromorphone [From Dilaudid] AdvReac Mild "didn't do Verified 07/18/21 11:52 anything for me" interferon beta-1a AdvReac Mild GI UPSET Verified 07/18/21 12:48 [From Avonex] Medications Home Medications Medication Instructions Recorded Confirmed Last Taken aspirin 81 mg tablet,delayed 81 mg PO HS 07/23/18 07/18/21 02/02/20 release (Ecotrin Low Strength) Cbd Oil 0.25 drp PO HS PRN 06/02/19 07/18/21 Unknown albuterol sulfate 90 mcg/actuation 1 - 2 puff INHALATION Q4H PRN #8.5 05/13/20 07/18/21 Unknown aerosol inhaler (ProAir HFA) g gabapentin 800 mg tablet 400 mg PO TID 30 Days #45 tab 03/17/21 07/18/21 Unknown sumatriptan succinate 100 mg 100 mg PO DIRECTED PRN #27 tab 03/20/21 07/18/21 Unknown tablet (Imitrex) cholecalciferol (vitamin D3) 50 50 mcg PO QAM 05/11/21 07/18/21 Unknown mcg (2,000 unit) capsule tizanidine 2 mg tablet 4 mg PO TID PRN #120 tab 05/18/21 07/18/21 Unknown ocrelizumab 30 mg/mL intravenous 600 mg IV Q6MO #20 ml 05/23/21 07/18/21 Unknown solution (Ocrevus) diazepam 5 mg tablet 5 mg PO .COMPLEX PRN 30 Days #60 05/25/21 07/18/21 Unknown tab sertraline 100 mg tablet (Zoloft) 150 mg PO PM 90 Days #135 tab 07/03/21 07/18/21 Unknown baclofen 20 mg tablet 20 mg PO TID 07/18/21 07/18/21 Unknown meloxicam 15 mg tablet (Mobic) 15 mg PO QAM 07/18/21 07/18/21 Unknown Past Medical History Medical History History of COVID-19 DX'D HOME TEST EARLY 04/2021-"SNIFFLES" > RESOLVED Hx of chronic bronchitis LAST INHALER USE 2-3 MONTHS Multiple sclerosis DX'D 1990-F/U 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 WEAKNESS LEFT FACE AND RIGHT FOOT Muscle spasm LEGS R/T MS Personal history of transient ischemic attack (TIA), and cerebral infarction without residual deficits 1991 > no residual effects Stress incontinence RELATED TO MS Past Family History Family History Mother Diabetes Stroke Sister Diabetes Hypertension Denies family history of Ovarian cancer Prostate cancer Myocardial infarction Breast cancer Colorectal cancer Past Surgical History Surgical History History of arthroscopy LEFT KNEE AND RIGHT History of cataract surgery LEFT/RIGHT History of section X3 History of hysterectomy History of repair of rotator cuff RIGHT History of surgery PORT PLACEMENT-REMAINS IN PLACE LEFT UPPER CHEST-FLUSHED REGULARLY History of surgery LEFT CLAVICLE Hx of cervical spine surgery "FUSION" - PT REPORTS FULL ROM Hx of colonoscopy Hx of elbow surgery RIGHT Hx of ovarian cystectomy X5 Hx of spinal surgery X5 - TOTAL OF 5 BACK SURGERIES/1 CERVICAL SURGERY - HAS HARDWARE Hx of surgical amputation of finger RIGHT SMALL FINGER D/T INFECTION 40 YR AGO Social History Smoking Status: Never smoker Do You Dip or Chew Tobacco: No Hx Alcohol Use: Yes Alcohol type: beer Alcohol Intake Frequency Comment: RARELY Hx Substance Use: Yes substance use type: marijuana Substance Use Type Other:: MEDICAL MARIJUANA CARD-TINCTURE PRN FOR MUSCLE SPASMS Last Used Substance Other:: USES EVERY OTHER DAY - DEPENDING ON SPASTICITY Lab Results Anesthesia Preop Results Results Anesthesia Widget: WBC 3.36 K/uL (4.8-10.8) L 07/13/21 Hgb 13.3 g/dL (12.0-16.0) 07/13/21 Hct 40.0 % (37-47) 07/13/21 Plt 207 K/uL (130-400) 07/13/21 Na 142 mmol/L (136-145) 07/13/21 K 4.1 mmol/L (3.5-5.1) 07/13/21 Cl 107 mmol/L (98-107) 07/13/21 CO2 31 mmol/L (21-32) 07/13/21 BUN 28 mg/dl (6-23) H 07/13/21 Creat 0.60 mg/dl (0.6-1.2) 07/13/21 Glucose Level 82 mg/dl (70-99(Fasting)) 07/13/21 PT 10.9 Seconds (9.0-12.0) 07/13/21 PTT 25.7 Seconds (21.0-31.0) 07/13/21 INR 1.0 (0.9-1.1) 07/13/21 Blood Type A Positive 07/13/21 Antibody Screen NEGATIVE 07/13/21 Testing Electrocardiogram Date: 07/13/21 Findings: + NSR @ (62) Chest X-Ray Date: 07/13/21 FINDINGS: Postoperative findings within the cervical spine and left subclavian [id number] are incidentally noted. There is no pneumothorax or pleural effusion. No consolidation or evidence for pulmonary edema. Cardiomediastinal silhouette is normal. Appearance of the chest is unchanged. IMPRESSION: No acute cardiopulmonary findings. Echocardiogram Date: 10/31/20 EF 50-55%. Mild LAD/RAD. Grade II DD. Modeate MR/TR. RVSP 30-40 mmhg.
[~2021-07-21 08:52] MED LIST changes: +ACETAMINOPHEN 500 MG TAB PO SCH; -ALBU18002 INH; -ASPI-319 PO; -BACL10TA PO; -BENZ-54 PO; +BUPIVACAINE 0.25% 30 ML VIAL ONE; +BUPIVACAINE 0.5 % 5 MG/1 ML PF 10ML VIAL ONE; -CHOLTAB11 PO; +DEXAMETHASONE SOD INJ 4 MG/ML VIAL ONE; -DIAZ-165 PO; -DICL1GEL12 TOP; +EPINEPHrine INJ 1 MG/ML AMP ONE; +FAMOTIDINE 20 MG TAB PO SCH; +GABAPENTIN 300 MG CAP PO SCH; +Ketorolac (*for OR use only*) 30 MG, dexAMETHasone 4 MG, KETAMINE HCL (**OR use only) 1... INFIL SCH; +LACTATED RINGER'S 1,000 ML IV SCH; -NATA1INJ IV; -NRN800 PO; -SERT-234 PO; -SUMA100T16 PO; -TIZA4CAP PO; +TRANEXAMIC ACID 1,000 MG **IV Intra-op IV SCH; +TRANEXAMIC ACID 1,000 MG **IV Pre-op IV SCH; +ceFAZolin 1000MG 1,000 MG/7.5 ML SYR IV SCH; +dexAMETHasone 4 MG TAB PO SCH
--- NOTE | 2021-07-21 10:33 | History & Physical Bridge Note ---
Date of Service July 21, 2021 History & Physical Bridge Note I have examined the patient, reviewed the History & Physical and in the interval since the performance of the History & Physical I have noted the following changes of clinical significance: no changes noted
[2021-07-21] MEDS ORDERED: ORTHO JOINT ANESTHETIC ONE (11:10)
[2021-07-21] MEDS ORDERED: fentaNYL citrate 100 MCG/2 ML VIAL ONE ×3 (11:11→13:35)
[2021-07-21] MEDS ORDERED: MIDAZOLAM HCL 1 MG/ML 2ML VIAL ONE (11:11)
[2021-07-21] MEDS ORDERED: PROPOFOL IV EMULSION 10 MG/ML 20 ML VIAL IV ONE (11:12)
[2021-07-21] MEDS ORDERED: ONDANSETRON INJ 2 MG/ML 2 ML VIAL ONE (11:12)
[2021-07-21] MEDS ORDERED: DEXAMETHASONE SOD INJ 4 MG/ML VIAL ONE (11:12)
[2021-07-21] MEDS ORDERED: KETAMINE 50 MG/5 ML SYRINGE ONE (11:46)
[2021-07-21] MEDS ORDERED: HYDROmorphone INJ 2 MG/ML SYR/VIAL ONE (12:06)
--- NOTE | 2021-07-21 12:45 | Operative Report ---
[facility] Post Operative Report Pre & Post Diagnosis Operation Date: 07/21/21 11:40 Pre-Op Diagnosis: Left Knee Osteoarthritis Post-Op Diagnosis: Left Knee Osteoarthritis I identified the patient and participated in the time-out.: Yes Procedure Operation Date: 07/21/21 11:40 Actual Procedures p Left Total Knee Arthroplasty(Left) - Jamal Nguyen DO Surgeon Jamal Nguyen DO Lathe Machinist Jamal Issa PAC Estimated Blood Loss 10 Findings Consistent with Post-Op Diagnosis Specimens Left femoral and tibial bone Complications none Disposition Disposition: Recovery Room Indications Yani is a pleasant 65-year-old female who is been there with chronic increasing left knee pain. Is been very severe recently. X-rays and clinical examination are diagnostic for advanced arthritis of the left knee. After failing conservative treatment, she elected to proceed with a left total knee arthroplasty. Description of Procedure Implants used: I used a Debbie Persona total knee arthroplasty system with a size 6 standard femur, D tibia, 28 oval patella, and a size 11 medial congruent polyethylene bearing. All components were cemented in place with Biomet cement. Yani arrived [facility] for the above procedure. She was seen in the preoperative holding area and the operative extremity was identified and signed. She was given a preoperative antibiotic, TXA, and an adductor nerve block. She was taken back to the operating room and laid on the table in supine position. She was given general anesthesia. The operative knee was then prepped and draped in sterile fashion. A timeout was done, and the patient and the operative extremity was properly identified. A midline incision was made directly over the patella. Dissection was taken down to the extensor mechanism. A subvastus arthrotomy was used. The medial retinaculum was released and the fat pad was mostly excised. The knee was flexed and the ACL, PCL, and meniscus were removed. A drill was sent down the center of the femoral canal followed by an intramedullary marcus. Off that marcus a distal femoral cutting block was placed. 9 mm was resected off the distal femur at 5 of valgus. A posterior referencing AP sizing guide was then placed on the distal femur. The femur measured to be a size 6. 2 drill holes were placed in 3 of external rotation. A 4-in-1 cutting block was then impacted into place. Anterior, posterior, and chamfer cuts were then made. The proximal tibia was then exposed. An external tibial alignment guide was placed. A tibial cut guide was then anchored in place and the proximal tibia was then resected. The posterior aspect of the knee was then opened up and any additional meniscus fragments and osteophytes were removed. The tibia measured to be a size D. The tibial plate was then placed in the appropriate rotation and the tibia was drilled and punched. Trial components were then placed. I used a size 11 medial congruent polyethylene insert. The knee was brought through a full range of motion and felt to be stable. The peg holes for the femoral component were then drilled. The patella was then everted and 9 mm was resected off the posterior aspect of the patella. The patella measured to be a size 28 oval. 3 peg holes were then drilled. A trial patella was placed. The knee was once again brought through a full range of motion and felt to be stable. Trial components were then removed. The surrounding soft tissues were injected with 100 cc of an orthopedic pain control cocktail. All components were then cemented into place with Biomet cement. The final polyethylene insert was then snapped into place. Once cement was dry the tourniquet was deflated. Hemostasis was obtained. A dilute betadyne lavage was then done for 3 minutes. The joint was then irrigated with normal saline solution. The subvastus arthrotomy was then closed with #1 Vicryl suture. The skin was closed with 2-0 Vicryl, 3-0V lock suture, and eleonora. A soft compressive dressing was placed. She was then transferred to a hospital bed and taken to the postanesthesia care unit in stable condition. She tolerated the procedure well. Jamal Issa PA-C, was present for the entire procedure. He was critical for patient positioning, prepping, draping, retraction exposure, wound closure and application of sterile dressing. I attest to the content of the Intraoperative Record and any orders documented therein. Any exceptions are noted below.
[2021-07-21] MEDS ORDERED: ATROPINE SULFATE 0.1 MG/ML 10ML SYR IV PRN (13:21)
[2021-07-21] MEDS ORDERED: ONDANSETRON INJ 2 MG/ML 2 ML VIAL IV PRN ×2 (13:21→14:11)
[2021-07-21] MEDS ORDERED: fentaNYL citrate 100 MCG/2 ML VIAL IV PRN (13:21)
[2021-07-21] MEDS ORDERED: ePHEDrine sulfate 50 MG/ML AMP IV PRN (13:21)
--- NOTE | 2021-07-21 13:59 | XRay Report ---
LEFT KNEE 2 VIEWS History: Left total knee arthroplasty. Degenerative arthritis. Postop. FINDINGS: The patient is status post a left total knee arthroplasty. The hardware is intact. No fract ure or dislocation. Skin eleonora are in place. IMPRESSION: Left total knee arthroplasty. No evidence for hardware complication. ACT 112: Negative or not required by law. Electronically signed by: Waldo Michael M.D. 07/21/2021 1:58 PM
[2021-07-21] MEDS ORDERED: NALOXONE HCL 0.4 MG/1 ML VIAL/CARP IV PRN (14:11)
[2021-07-21] MEDS ORDERED: HYDROmorphone INJ 0.5 MG/0.5 ML SYR IV PRN (14:11)
[2021-07-21] MEDS ORDERED: MAGNESIUM HYDROXIDE SUSP 30 ML UDC PO PRN (14:11)
[2021-07-21] MEDS ORDERED: SUMAtriptan succinate 100 MG TAB PO PRN (14:11)
[2021-07-21] MEDS ORDERED: diazePAM 5 MG TABLET PO PRN ×2 (14:11→15:47)
[2021-07-21] MEDS ORDERED: NON-FORMULARY MEDICATION (Ocrelizumab [Ocrevus] 30 mg/mL solution) IV SCH (14:11)
[2021-07-21] MEDS ORDERED: METOCLOPRAMIDE HCL INJ 5 MG/ML 2 ML VIAL IV PRN (14:11)
[2021-07-21] MEDS ORDERED: tiZANidine HCL 4 MG TABLET PO PRN (14:11)
[2021-07-21] MEDS ORDERED: bisacodyL 10 MG SUPP PR PRN (14:11)
--- NOTE | 2021-07-21 14:53 | Anesthesiology Progress Note ---
Date of Service July 21, 2021 Anesthesia Post Procedure Vital Signs Vital Signs: Temp Pulse Resp BP Pulse Ox 07/21/21 14:14 36.3 C L 73 18 112/68 100 07/21/21 14:00 81 15 109/61 99 07/21/21 13:50 80 18 121/61 100 07/21/21 13:40 69 12 106/67 99 07/21/21 13:30 59 L 12 112/54 L 100 07/21/21 13:20 36.2 C L 62 16 124/60 100 07/21/21 09:55 36.9 C 63 18 124/63 99 Pain Intensity Left Knee: Pain Intensity: 4 Transfer of Care Handoff Completed per policy Notes Mental Status: alert / awake / arousable Patient Amnestic to Procedure: Yes Nausea / Vomiting: adequately controlled Pain: adequately controlled Airway Patency, RR, SpO2: stable & adequate BP & HR: stable & adequate Hydration State: stable & adequate Anesthetic Complications: no major complications apparent
[2021-07-21] MEDS ORDERED: ALBUTEROL HFA 8 GM INHALER INH PRN (15:16)
[2021-07-21] MEDS: KETOROLAC TROMETHAMINE 15 MG/ML VIAL IV SCH ×2 (15:30→22:49)
[2021-07-21] MEDS: BACLOFEN 20 MG TAB PO SCH ×2 (15:44→20:14)
[2021-07-21] MEDS: ACETAMINOPHEN 500 MG TAB PO SCH ×2 (15:45→22:48)
[2021-07-21] MEDS: GABAPENTIN 400 MG CAP PO SCH ×2 (15:46→20:15)
[2021-07-21] MEDS ORDERED: MoRPHine SULFATE 10 MG/ML CARP/VIAL IV PRN (15:46)
[2021-07-21] MEDS: SODIUM CHLORIDE 0.9% 1000ML 1,000 ML IV SCH (15:46)
[2021-07-21] MEDS: ceFAZolin 2000MG 2,000 MG/15 ML SYR IV SCH (17:52)
[2021-07-21] MEDS: oxyCODONE HCL IR 5 MG TAB (IMMEDIATE RELEASE) PO PRN (18:02)
[2021-07-21] MEDS: DOCUSATE SODIUM 100 MG CAP PO SCH (20:13)
[2021-07-21] MEDS: ASPIRIN 81 MG ECTAB PO SCH (20:14)
[2021-07-21] MEDS ORDERED: SERTRALINE HCL 50 MG TABLET PO SCH (21:00)
[2021-07-21] MEDS ORDERED: SENNA 8.6 MG TAB PO SCH (21:00)
[2021-07-22] MEDS: SODIUM CHLORIDE 0.9% 1000ML 1,000 ML IV SCH (01:52)
[2021-07-22] MEDS: oxyCODONE HCL IR 5 MG TAB (IMMEDIATE RELEASE) PO PRN ×2 (02:05→08:22)
[2021-07-22] MEDS: ceFAZolin 2000MG 2,000 MG/15 ML SYR IV SCH (02:07)
[2021-07-22] MEDS: KETOROLAC TROMETHAMINE 15 MG/ML VIAL IV SCH (03:07)
[2021-07-22] MEDS: ACETAMINOPHEN 500 MG TAB PO SCH (05:43)
--- NOTE | 2021-07-22 06:52 | Orthopedic Progress Note ---
Date of Service July 22, 2021 Assessment & Plan (1) Status post left knee replacement: Overall she is doing fairly well. She is having some spasms in her leg from her MS. She will be seen by physical therapy today for ambulation and range of motion exercises. She said that she would feel more comfortable if she were home. She is on aspirin for DVT prophylaxis. I think we can discharge her to home later today. She will follow-up with orthopedics in 2 weeks. Lakeisha Lomeli was seen and examined at bedside this morning. She is not having much pain in her knee but she is complaining of muscle spasms from her MS. She had a rough night last night. She has been up and ambulating to the bathroom. She had no acute events or any other complaints. Review of Systems All systems reviewed & are unremarkable except as noted in HPI & below. Physical Exam On physical examination of the left knee, the dressing is clean and dry. Her leg is out in full extension. She has active dorsiflexion plantarflexion of her left ankle. Results & Data Results & Data Laboratory Results . Diagnostic Findings Postoperative x-rays of the left knee show the prosthesis to be in anatomic alignment without any evidence of fracture, desiccation, or loosening. PG Care Time/CCT Total # of Minutes Spent Total Time Spent with Patient: Total time spent is greater than 50% in coordination of care (as documented) at patient's floor/unit and/or counseling patient: Coding Level of Care Code 64911 Post Operative Follow-Up Diagnoses Status post left knee replacement Z96.652
--- NOTE | 2021-07-22 06:54 | Discharge Summary ---
Date of Service July 22, 2021 Principal Diagnosis Same as "Discharge Diagnosis" noted below under Discharge Instructions. Discharge Exam On physical examination of the left knee, the dressing is clean and dry. Her leg is out in full extension. She has active dorsiflexion plantarflexion of her left ankle. Discharge Data Procedures Performed Operation Date: 07/21/21 11:40 Actual Procedures p Left Total Knee Arthroplasty(Left) - Jamal Nguyen DO Ordered Studies 07/21/21 05:00 US - OR guided needle placemen Routine Hospital Course (1) Status post left knee replacement: On July 21, 2021 Yani arrived at [facility] and underwent a left knee replacement without complication. She had a general anesthetic. Postoperatively she was started on aspirin for DVT prophylaxis and transferred t o the general orthopedic floors. Her hospital course was uneventful. On postop day #1 her vital signs were stable. She was having some issues with muscle spasms due to her MS. She was able to participate well with physical therapy doing ambulation and range of motion exercises. She was then discharged home. She will follow-up with orthopedics in 2 weeks. PG Care Time/CCT Total # of Minutes Spent Total Time Spent with Patient: Total time spent is greater than 50% in coordination of care (as documented) at patient's floor/unit and/or counseling patient: Discharge Plan Discharge Items Patient Disposition: Home - Home Health Services Reason For Visit: Left Knee Osteoarthritis Discharge Diagnosis: Left knee replacement Activity: Per Instructions section Non-emergency contact: Surgeon Call non-emergency contact if: your wound has increased drainage Follow-up/Referrals: Saundra Burnette CRNP [Primary Care Provider] - Diet: Regular Addtl Attending Provider Instructions: Activity and Therapy Recommendations: * If you are using [facility] then therapy will be provided at your home until they feel you have accomplished all of your goals. * If you are using [facility] then Physical Therapy will be provided until they feel you are ready to start Outpatient Physical Therapy. * If you are not using home therapy then Outpatient Physical Therapy should start about 3-5 days from your day of surgery. Therapy will last about 6-10 w eeks * It is important not to put a pillow under your knee when you are relaxing or sleeping. It is just as important to make sure you are getting your knee perfectly straight as it is to regain your knee bend. * You were shown a series of exercises in the hospital. Do these exercises three times each day including the exercises you were shown in physical therapy. * Get up and walk several times each day. For the first four weeks, try not to stand or walk for more than one hour at a time. If you do stand or walk for more than one hour, you will not hurt anything, but your leg will likely swell . * As you feel comfortable, you may change from the walker or crutches to a cane and then to independent walking. Medications: * Narcotic You will likely be sent home from the hospital with a prescription for the narcotic pain medication that worked best throughout your stay. * Aspirin Most patients will be required to take Aspirin 81mg twice a day for 6 weeks after surgery. This is obtained [id number] and a prescription is not necessary. * Other medications may be prescribed for specific circumstances. If you have any questions, please call the office at . * Resume previous home medications unless otherwise instructed TEDs/Elastic Stockings: The white elastic stockings help limit swelling and prevent blood clots from forming in your legs.~ The more you wear them, the more they work. Wear them for six weeks. Dressing Care: The dressing can be changed after physical therapy on postop day #1. Daily dry dressing changes for a few days, especially if the incision is still draining some. If the incision is not draining then you may leave the eleonora open to air. If there is a little bit of drainage or if the eleonora are getting stuck on your clothing then cover the incision with a dry dressing. The eleonora will be removed at your 2 week follow-up appointment. Showering: You may shower 5 days from the day of surgery as long as the incision is no longer draining. You may shower with the eleonora exposed. Let soapy water run over the eleonora and pat them dry. Do not scrub or soak the incision. Things To Watch For: * Drainage from the incision site that occurs more than one week after your surgery. * Increased redness at the incision site. * Fever above 102 degrees Fahrenheit. * Unusual chest pain or shortness of breath. * Call [facility] at with any of the above problems Follow-Up Visit: Follow-up with Dr. Nguyen's PA (Jamal Issa) 2-3 weeks after your day of surgery. He will remove your eleonora and answer any questions. If you have any additional questions or concerns, Dr Nguyen is usually in the office at the same time and will be available An appointment was probably scheduled when you signed-up for surgery in the office. If you have any questions call Office Instructions: More detailed instructions as well as Frequently Asked Questions were provided in a folder by our office when you signed-up for surgery. Please review these instructions when you get home. If you have any further questions or concerns, please feel free to call the office at [phone] Pending Studies at Discharge: No Stand-Alone Forms: My [facility] Medications and DC Order Prescriptions: New oxycodone-acetaminophen 5-325 mg tablet 1 tab PO Q6H PRN (Reason: pain) Qty: 60 RF: 0 Continued gabapentin 800 mg tablet 400 mg PO TID 30 Days Qty: 45 RF: 5 sumatriptan succinate [Imitrex] 100 mg tablet 100 mg PO DIRECTED PRN (Reason: migraine headache) Qty: 27 RF: 3 Ocrevus 30 mg/mL solution 600 mg IV Q6MO Qty: 20 RF: 1 sertraline [Zoloft] 100 mg tablet 150 mg PO PM 90 Days Qty: 135 RF: 1 tizanidine 2 mg tablet 4 mg PO TID PRN (Reason: muscle spasticity) Qty: 120 RF: 6 albuterol sulfate [ProAir HFA] 90 mcg/actuation HFA aerosol inhaler 1 - 2 puff INHALATION Q4H PRN (Reason: Shortness Of Breath) Qty: 8.5 RF: 5 cholecalciferol (vitamin D3) 50 mcg (2,000 unit) capsule 50 mcg PO QAM RF: 0 Cbd Oil 0.25 drp PO HS PRN (Reason: muscle spasms) RF: 0 meloxicam [Mobic] 15 mg tablet 15 mg PO QAM RF: 0 baclofen 20 mg tablet 20 mg PO TID RF: 0 diazepam [Valium] 5 mg tablet 5 mg PO .COMPLEX PRN (Reason: muscle spasms ) RF: 0 Changed aspirin [Ecotrin Low Strength] 81 mg Tablet,Delayed Release (Dr/Ec) 81 mg PO BID 42 Days Qty: 0 RF: 0 Discharge Orders: Discharge Order (Routine); Ordered 07/22/21 Ordered By: Jamal Nguyen Admission Data Admit Date/Time: 07/21/21 13:11 Attending Provider: Jamal Nguyen Admit Provider: Jamal Nguyen Primary Care Provider: Saundra Burnette
[2021-07-22] MEDS ORDERED: dexAMETHasone 4 MG TAB PO SCH (08:00)
[2021-07-22] MEDS: ASPIRIN 81 MG ECTAB PO SCH (08:22)
[2021-07-22] MEDS: DOCUSATE SODIUM 100 MG CAP PO SCH (08:22)
[2021-07-22] MEDS: BACLOFEN 20 MG TAB PO SCH (08:22)
[2021-07-22] MEDS: GABAPENTIN 400 MG CAP PO SCH (08:22)
[2021-07-22] MEDS ORDERED: HEPARIN 100 UNIT/ML 5ML FLUSH FLUSH PRN (08:48)
[2021-07-22] MEDS ORDERED: MULTIVITAMIN TAB PO SCH (09:00)
== END 2021-07-22 12:29 | disposition home health service (06) ==
LOC: 3E 08:52 → ASU 08:52

== ENCOUNTER 2022-04-25 14:41 | Inpatient (IN) ==
[2022-04-25] MEDS ORDERED: OPTIRAY 320 500ml IV ONE (15:01)
--- NOTE | 2022-04-25 15:03 | CT Scan Report ---
CT SCAN OF THE BRAIN WITHOUT IV CONTRAST CLINICAL HISTORY: Strokelike symptoms. Neurological deficit. COMPARISON STUDY: CT of the brain dated 06/10/2014. MRI of the brain dated 01/24/2022. TECHNIQUE: Unenhanced axial CT scan of the brain is performed from the vertex to the skull base. A do se lowering technique was utilized adhering to the principles of ALARA. CT DOSE: 614.27 mGy.cm FINDINGS: Brain parenchyma: There is age-related involutional change noting minimal subcortical and periventric ular microangiopathic disease. There is no hemorrhage, mass effect, or evidence of acute territorial ischemia by CT criteria. Cornejo-white matter differentiation is preserved. No extra-axial fluid collect ion is seen. Ventricles, sulci, cisterns: Prominent secondary to involutional change. Intracranial vasculature: There is atherosclerotic calcification of the cavernous carotid arteries. Calvarium: Unremarkable. Sinuses and mastoids: The paranasal sinuses are clear. The mastoid air cells are well pneumatized. Orbits: The bony orbits are grossly intact. There are bilateral ocular lens implants. IMPRESSION: There is no hemorrhage, mass effect, or evidence of acute territorial ischemia by CT misbah moreno. ACT 112: Negative or not required by law. Electronically signed by: Karson Salas M.D. 04/25/2022 3:01 PM
[2022-04-25 15:20] LABS: Basophils # (auto) 0.01 K/uL (0-0.2); Basophils % (auto) 0.2 %; Eosinophils # (auto) 0.01 K/uL (0-0.50); Eosinophils % (auto) 0.2 %; Hematocrit (blood only) 37.2 % (34.1-44.9); Immature Granulocytes # (auto) 0.01 K/uL (0.00-0.02); Immature Granulocytes % (auto) 0.2 %; Lymphocytes # (auto) 0.62 K/uL (1.2-3.4); Lymphocytes % (auto) 12.4 %; Mean Corpuscular Hemoglobin 31.7 pg (25.0-34.0); Mean Corpuscular Hgb Conc 34.9 g/dL (32.0-36.0); Mean Corpuscular Volume 90.7 fL (80.0-100.0); Mean Platelet Volume 10.2 fL (9.4-12.3); Monocytes # (auto) 0.07 K/uL (0.24-0.82); Monocytes % (auto) 1.4 %; Neutrophils # (auto) 4.28 K/uL (1.4-6.5); Neutrophils % (auto) 85.6 %; Platelet Count 174 K/uL (130-400); RDW Coefficient of Variation 11.9 % (11.5-14.5); RDW Standard Deviation 39.2 fL (36.4-46.3)
--- NOTE | 2022-04-25 15:21 | CT Scan Report ---
CT ANGIOGRAM OF THE BRAIN; CT ANGIOGRAM OF THE NECK CLINICAL HISTORY: Strokelike symptoms. Neurological deficit. COMPARISON STUDY: Unenhanced CT of the brain performed the same day 04/25/2022. TECHNIQUE: Following the IV administration of 111 of Optiray 320, CT angiogram of the head and neck w as performed from the aortic arch to the vertex. Images are reviewed in the axial, sagittal, and vitaliy nal planes. 3-D MIPS images are created and assessed. IV contrast was administered without complicati on. All measurements were calculated based on NASCET criteria. A dose lowering technique was utilize d adhering to the principles of ALARA. CT DOSE: 450.45 mGy.cm FINDINGS: Brain parenchyma: There is age-related involutional change noting minimal microangiopathic disease. T here is no evidence of hemorrhage, mass effect, or acute territorial ischemia noting angiographic pha se technique. There is no evidence of enhancing mass lesion on the angiogram phase images. The ventri cles, sulci, and cisterns are normal in configuration. Cornejo-white matter differentiation is preserved . No extra-axial fluid collection is seen. Thoracic aorta: Visualized portions of the thoracic aorta are normal in caliber. The aortic arch demo nstrates standard 3-vessel anatomy. Right carotid arterial system: The right common carotid artery is widely patent, as on the right inte rnal and external carotid arteries. Left carotid arterial system: The left common carotid artery is widely patent, as are the left internal specialist al and external carotid early. Vertebral arteries: There is mild to moderate stenosis at the origin of the left vertebral artery. Th e vertebral arteries are otherwise widely patent bilaterally noting right-sided dominance. Subclavian arteries: Widely patent bilaterally. Intracranial vasculature: The internal carotid arteries are patent at the skull base, as are the ante rior and middle cerebral arteries bilaterally. The vertebrobasilar system and posterior cerebral antonella joni are widely patent. The right vertebral artery is dominant. There is no aneurysm, high-grade sten osis, or focal vessel cut off seen throughout the intracranial circulation. Jugular veins: Patent bilaterally. Dural sinuses: Patent. Lung apices: Partially visualized upper lobe lung parenchyma appears clear. Soft tissues: The visualized pharyngeal soft tissues are normal in appearance noting angiographic pha se technique. The oropharyngeal airway appears widely patent. The salivary and thyroid glands are nor mal in appearance. No cervical lymphadenopathy is seen. Skeletal structures: The calvarium appears intact. The cervical spine is maintained. Postsurgical arlene nges noted in the cervical spine. No lytic or blastic lesion is seen. Orbits: The bony orbits are intact. Orbital contents are normal as visualized noting bilateral ocular lens implants. Sinuses and mastoids: There is trace mucosal thickening in the right maxillary antrum. The remaining paranasal sinuses are clear. The mastoid air cells are well pneumatized. IMPRESSION: 1. There is no evidence of hemorrhage, mass effect, or acute territorial ischemia noting angiographic phase technique. 2. Unremarkable CT angiogram of the brain. 3. There is mild/moderate stenosis at the origin of the left vertebral artery. 4. Otherwise unremarkable CT angiogram of the neck. ACT 112: Negative or not required by law. Electronically signed by: Karson Salas M.D. 04/25/2022 3:19 PM
[2022-04-25] MEDS ORDERED: SODIUM CHLORIDE 0.9% 10ML FLUSH IV STA (15:24)
[2022-04-25] MEDS ORDERED: STAT IV STA (15:24)
[2022-04-25] MEDS ORDERED: No Aspirin within 24hrs of THROMBOLYTIC-Stroke PO SCH (15:30)
[2022-04-25] MEDS ORDERED: TENECTEPLASE 18 MG in SYRINGE 0 ML IV ONE (15:34)
--- NOTE | 2022-04-25 15:38 | Emergency Department Note ---
Impression & Plan Acute left-sided weakness, Multiple sclerosis, Cerebrovascular accident ED Provider Note Provider: Bennett Stiles MD DATE OF SERVICE: 04/25/2022 CHIEF COMPLAINT: Left-sided weakness HISTORY OF PRESENT ILLNESS: Patient is a 66-year-old female history of multiple sclerosis and back pain and surgeries with spinal stenosis presenting today with onset of neuro symptoms just after 2 PM. Evidently the patient was receiving her Ocrevus infusion upstairs. Had some Benadryl this morning around 930am and received the infusion. She states around between 215 and 230 she had onset of some dizziness and visual disturbance where she was seeing double. States her left side was weak and barely able to move. Brought to the ER for further evaluation. No trauma reported. Patient states that she has numbness of her left side as well. She takes a baby aspirin. Reports a possible stroke or TIA in the 90s. Patient denies any nausea at this time or chest or abdominal pain. Denies headache. Reports a little bit of pain in the left obrien but no history of this or trauma. The infusion center evidently called the charge nurse and advised them that the patient missed her infusion around 2 PM and then by 2:20- 2:30pm she was having focus issues and dizziness issues and then left-sided issues. Patient states this is different than MS issues she is had in the past. Has some chronic vision issues but again she states the double vision and blurriness she is experiencing now is different. PAST MEDICAL HISTORY: As noted above MEDICATIONS: Reviewed home medications includes ASA SOCIAL HISTORY: no other anticoagulation reported PHYSICAL EXAM: GENERAL: alert and oriented in no acute distress on stretcher fatigued in appearance Head: normocephalic and atraumatic EYES: No injection, discharge or icterus. PERRL, EOMI. NECK: Trachea midline. Supple. ENT: Mucous membranes pink and moist. LUNGS: Airway patent. No retractions. Breath sounds clear HEART: Regular rate and rhythm. No chest wall tenderness with a left upper port in place. ABDOMEN: Soft and non-tender, without guarding or rebound. SKIN: Acyanotic, warm, dry, without rashes EXTREMITIES: Without swelling, tenderness or deformity NEUROLOGICAL: Left-sided facial droop. Perhaps some slight drooping of the left eyelid. Minimal effort against gravity of the left arm and leg. Decree sensation left arm and leg as well as a bit on the left face. Intact strength and sensation of the right arm and leg. No significant aphasia but bit slow to speak at times. No significant slurred speech/dysarthria. EK bpm normal sinus rhythm. No PVC or PAC. No acute ST segment elevation or depression with some nonspecific anterior T wave changes. QTc 399. CONTINUOUS CARDIAC MONITORING: was ordered and showed a heart rate of 60s bpm in normal sinus rhythm Patient's laboratory studies and imaging reviewed. Differential includes Infection, dehydration, metabolic abnormality, hypo/hyperglycemia, electrolyte disturbance, anemia, hypoxia, cardiac sources, intracerebral event, toxicologic, neurologic, as well as other pathologies. IMPRESSION/MEDICAL DECISION MAKING: Patient with significant history of multiple sclerosis undergoing infusion of medication for this this afternoon. After infusion patient had onset of left- sided numbness and weakness and strokelike symptoms. Brought here for evaluati on made a stroke alert. On aspirin but no other blood thinners. CT reports by radiology with evidence of acute head bleed or significant vascular abnormality/occlusion. Seen with the [facility] telestroke doctor. Early acute onset with significant deficits in the left side. Patient's later arrives. Discussed with them both as well as the telestroke doctor risks and benefits of thrombolytic therapy. The acute onset seems highly atypical for MS and concerning for CVA. In discussion of risks and benefits including possible 6% risk of bleeding, patient wished to proceed with thrombolytics. This was administered per protocol. Will require ICU monitoring and further care here at the hospital. No significant anemia or leukocytosis on the blood work and no infectious symptoms otherwise recently reported. Water without severe electrolyte abnormalities or signs of renal dysfunction. Patient closely monitored after TNK here with some gradual improvement of weakness and numbness on the left side. Hospitalist as well as the economics instructor made aware. DIAGNOSIS: Left-sided weakness, CVA, multiple sclerosis DISPOSITION: Hospitalist will evaluate Patient was agreeable with this plan. Critical Care I have personally spent 55 minutes of critical care time in the direct management of this patient. This includes bedside care, interpretation of diagnostic studies, and testing, discussion with consultants, patient, and family members, and other required patient management activities. These 55 minutes is in excess of all separately billable procedures. 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 WEAKNESS LEFT FACE AND RIGHT FOOT Muscle spasm LEGS R/T MS Personal history of transient ischemic attack (TIA), and cerebral infarction without residual deficits 1991 > no residual effects Stress incontinence RELATED TO MS Surgical History History of arthroscopy LEFT KNEE AND RIGHT History of cataract surgery LEFT/RIGHT History of section X3 History of hysterectomy History of repair of rotator cuff RIGHT History of surgery PORT PLACEMENT-REMAINS IN PLACE LEFT UPPER CHEST-FLUSHED REGULARLY History of surgery LEFT CLAVICLE Hx of cervical spine surgery "FUSION" - PT REPORTS FULL ROM Hx of colonoscopy Hx of elbow surgery RIGHT Hx of ovarian cystectomy X5 Hx of spinal surgery X5 - TOTAL OF 5 BACK SURGERIES/1 CERVICAL SURGERY - HAS HARDWARE Hx of surgical amputation of finger RIGHT SMALL FINGER D/T INFECTION 40 YR AGO Family History Mother Diabetes Stroke Sister Diabetes Hypertension Denies family history of Ovarian cancer Prostate cancer Myocardial infarction Breast cancer Colorectal cancer Social History Smoking Status: Never smoker Second Hand Exposure: No; Hx Alcohol Use: No Hx Substance Use: Yes Last Used Substance: Days (ago) Last Used Substance Other:: USES EVERY OTHER DAY - DEPENDING ON SPASTICITY Substance Use Type Other:: MEDICAL MARIJUANA CARD-TINCTURE PRN FOR MUSCLE SPASMS Preferred Language: Bahamian Communication Ability: Effective Visual Impairment: No Limitations Hearing Ability: Normal Emergency Department Nurse Required: No Beliefs That Will Affect Care: None marital status: Current Living Situation: Spouse current occupational status: retired 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 How many Children do You have: 3 Feels Safe at Home: Yes Childhood Exposure to Second-Hand Smoke: No caffeine: Yes (Coffee a day ) Dental Care, Regularly: Yes Physical Activity Frequency: Other Physical Activity Frequency Comment: Occasional exercise Seatbelt Use: always Sunscreen Use: Yes Assistive Devices: Walker Allergies Allergies Allergy/AdvReac Type Severity Reaction Status Date / Time bee venom protein (honey bee) Allergy Severe THROAT Verified 04/25/22 16:24 SWELLING Gadolinium-Containing Allergy Severe THROAT Verified 04/25/22 16:24 Contrast Medi SWELLING WITH CT SCAN DYE amoxicillin Allergy Mild RASH Verified 04/25/22 16:24 hydromorphone [From Dilaudid] Allergy Mild Rash Verified 04/25/22 16:24 interferon beta-1a AdvReac Mild GI UPSET Verified 04/25/22 16:24 [From Avonex] Home Meds Home Medications Medication Instructions Recorded Confirmed Cbd Oil 0.25 drp PO HS PRN muscle spasms 06/02/19 04/25/22 cholecalciferol (vitamin D3) 50 50 mcg PO QAM 05/11/21 04/25/22 mcg (2,000 unit) capsule aspirin 81 mg tablet,delayed 81 mg PO QPM 04/25/22 04/25/22 release (Ecotrin Low Strength) sertraline 100 mg tablet (Zoloft) 200 mg PO QPM 04/25/22 04/25/22 Previous Rx's Medication Instructions Recorded sumatriptan succinate 100 mg 100 mg PO DIRECTED PRN migraine 10/30/21 tablet (Imitrex) headache #27 tabs ocrelizumab 30 mg/mL intravenous 600 mg (20 mL) IV Q6MO multiple 11/10/21 solution (Ocrevus) sclerosis #20 mL tizanidine 2 mg tablet 4 mg PO TID PRN muscle spasticity 01/08/22 #120 tabs diazepam 5 mg tablet (Valium) 5 mg PO .COMPLEX PRN muscle spasms 01/10/22 #60 tabs albuterol sulfate 90 mcg/actuation 1 - 2 puff inhalation Q4H PRN 02/01/22 aerosol inhaler (ProAir HFA) Shortness Of Breath #8.5 grams baclofen 20 mg tablet 20 mg PO TID #270 tabs 02/02/22 oxcarbazepine 150 mg tablet 150 mg PO BID #60 tabs 03/09/22 (Trileptal) gabapentin 800 mg tablet 800 mg PO QID Pain 30 days #120 03/23/22 tabs Results & Data (ED) Vital Signs Vital Signs - 24 hr 04/25/22 15:44 04/25/22 15:59 04/25/22 15:16 Temperature Temperature Source Pulse Rate 87 Pulse Rate [Right Apical] 63 62 Pulse Rate from SpO2 Sensor 87 Respiratory Rate 16 16 15 Respiratory Effort / Characteristics Non-Labored Spontaneous Non-Labored Spontaneous Respiratory Depth Normal Normal Respiratory Pattern Regular Regular Blood Pressure Blood Pressure [Right Arm] 128/64 128/77 Blood Pressure Mean Blood Pressure Mean [Right Arm] 85 94 Pulse Oximetry 97 97 96 Oxygen Delivery Method Room Air Room Air Sepsis Recent Fever Within 48 Hours Sepsis New/Unexplained Change in Mental Status Sepsis Action Taken by Nursing 04/25/22 15:20 04/25/22 15:20 04/25/22 15:29 Temperature Temperature Source Pulse Rate 78 Pulse Rate [Right Apical] Pulse Rate from SpO2 Sensor 80 Respiratory Rate 11 L Respiratory Effort / Characteristics Respiratory Depth Respiratory Pattern Blood Pressure 136/68 139/64 Blood Pressure [Right Arm] Blood Pressure Mean 90 89 Blood Pressure Mean [Right Arm] Pulse Oximetry 98 Oxygen Delivery Method Sepsis Recent Fever Within 48 Hours Sepsis New/Unexplained Change in Mental Status Sepsis Action Taken by Nursing 04/25/22 15:29 04/25/22 15:30 04/25/22 15:30 Temperature Temperature Source Pulse Rate 75 72 Pulse Rate [Right Apical] Pulse Rate from SpO2 Sensor 75 72 Respiratory Rate 15 15 Respiratory Effort / Characteristics Respiratory Depth Respiratory Pattern Blood Pressure 133/67 Blood Pressure [Right Arm] Blood Pressure Mean 89 Blood Pressure Mean [Right Arm] Pulse Oximetry 97 98 Oxygen Delivery Method Sepsis Recent Fever Within 48 Hours Sepsis New/Unexplained Change in Mental Status Sepsis Action Taken by Nursing 04/25/22 15:40 04/25/22 15:40 04/25/22 15:50 Temperature Temperature Source Pulse Rate 68 Pulse Rate [Right Apical] Pulse Rate from SpO2 Sensor 68 Respiratory Rate 17 Respiratory Effort / Characteristics Respiratory Depth Respiratory Pattern Blood Pressure 133/69 128/64 Blood Pressure [Right Arm] Blood Pressure Mean 90 85 Blood Pressure Mean [Right Arm] Pulse Oximetry 98 Oxygen Delivery Method Sepsis Recent Fever Within 48 Hours Sepsis New/Unexplained Change in Mental Status Sepsis Action Taken by Nursing 04/25/22 15:50 04/25/22 16:00 04/25/22 16:06 Temperature Temperature Source Pulse Rate 65 62 80 Pulse Rate [Right Apical] Pulse Rate from SpO2 Sensor Respiratory Rate 10 L 15 20 Respiratory Effort / Characteristics Non-Labored Spontaneous Respiratory Depth Normal Respiratory Pattern Regular Blood Pressure 136/68 Blood Pressure [Right Arm] Blood Pressure Mean 90 Blood Pressure Mean [Right Arm] Pulse Oximetry 95 Oxygen Delivery Method Room Air Sepsis Recent Fever Within 48 Hours No Sepsis New/Unexplained Change in Mental Status N/A Sepsis Action Taken by Nursing No Action Required 04/25/22 16:14 Temperature 36.6 C Temperature Source Oral Pulse Rate Pulse Rate [Right Apical] 67 Pulse Rate from SpO2 Sensor Respiratory Rate 20 Respiratory Effort / Characteristics Non-Labored Spontaneous Respiratory Depth Normal Respiratory Pattern Regular Blood Pressure Blood Pressure [Right Arm] 133/65 Blood Pressure Mean Blood Pressure Mean [Right Arm] 87 Pulse Oximetry 98 Oxygen Delivery Method Room Air Sepsis Recent Fever Within 48 Hours Sepsis New/Unexplained Change in Mental Status Sepsis Action Taken by Nursing Laboratory Data 04/25/22 15:07 04/25/22 15:07 Lab Results 04/25/22 04/25/22 04/25/22 Range/Units 15:07 15:07 15:07 WBC 5.00 (4.8-10.8) K/ul RBC 4.10 (3.93-5.22) M/uL Hgb 13.0 (12.0-16.0) g/dl Hct 37.2 (34.1-44.9) % MCV 90.7 (80.0-100.0) fL MCH 31.7 (25.0-34.0) pg MCHC 34.9 (32.0-36.0) g/dL RDW Std Deviation 39.2 (36.4-46.3) fL RDW Coeff of Josef 11.9 (11.5-14.5) % Plt Count 174 (130-400) K/uL MPV 10.2 (9.4-12.3) fL Immature Gran % (Auto) 0.2 % Neut % (Auto) 85.6 % Lymph % (Auto) 12.4 % Winston % (Auto) 1.4 % Eos % (Auto) 0.2 % Baso % (Auto) 0.2 % Neut # (Auto) 4.28 (1.4-6.5) K/uL Lymph # (Auto) 0.62 L (1.2-3.4) K/uL Winston # (Auto) 0.07 L (0.24-0.82) K/uL Eos # (Auto) 0.01 (0-0.50) K/uL Baso # (Auto) 0.01 (0-0.2) K/uL Immature Gran # (Auto) 0.01 (0.00-0.02) K/uL PT 11.4 (9.0-12.0) Seconds INR 1.1 (0.9-1.1) APTT 27.7 (21.0-31.0) Seconds PTT Ratio 1.0 Sodium (136-145) mmol/L Potassium (3.5-5.1) mmol/L Chloride (98-107) mmol/L Carbon Dioxide (21-32) mmol/L Anion Gap (3-11) BUN (6-23) mg/dl Creatinine (0.6-1.2) mg/dl Est Cr Clr Drug Dosing Est GFR ( Amer) ml/min Est GFR (Non-Af Amer) ml/min BUN/Creatinine Ratio (10-20) Glucose (70-99(Fasting)) mg/dl Calcium (8.5-10.1) mg/dl Magnesium (1.7-2.4) mg/dl Total Bilirubin (0.2-1.0) mg/dl AST (13-39) U/L ALT (7-52) U/L Alkaline Phosphatase (34-104) U/L Total Protein (6.0-8.3) gm/dl Albumin (3.4-5.0) gm/dl Globulin (2.5-4.0) gm/dl Albumin/Globulin Ratio (0.9-2) SARS-CoV-2, RNA, NAAT (NEGATIVE) Blood Type A Positive Antibody Screen NEGATIVE 04/25/22 04/25/22 Range/Units 15:07 15:45 WBC (4.8-10.8) K/ul RBC (3.93-5.22) M/uL Hgb (12.0-16.0) g/dl Hct (34.1-44.9) % MCV (80.0-100.0) fL MCH (25.0-34.0) pg MCHC (32.0-36.0) g/dL RDW Std Deviation (36.4-46.3) fL RDW Coeff of Josef (11.5-14.5) % Plt Count (130-400) K/uL MPV (9.4-12.3) fL Immature Gran % (Auto) % Neut % (Auto) % Lymph % (Auto) % Winston % (Auto) % Eos % (Auto) % Baso % (Auto) % Neut # (Auto) (1.4-6.5) K/uL Lymph # (Auto) (1.2-3.4) K/uL Winston # (Auto) (0.24-0.82) K/uL Eos # (Auto) (0-0.50) K/uL Baso # (Auto) (0-0.2) K/uL Immature Gran # (Auto) (0.00-0.02) K/uL PT (9.0-12.0) Seconds INR (0.9-1.1) APTT (21.0-31.0) Seconds PTT Ratio Sodium 135 L (136-145) mmol/L Potassium 3.7 (3.5-5.1) mmol/L Chloride 104 (98-107) mmol/L Carbon Dioxide 28 (21-32) mmol/L Anion Gap 3 (3-11) BUN 11 (6-23) mg/dl Creatinine 0.54 L (0.6-1.2) mg/dl Est Cr Clr Drug Dosing Not Reportable Est GFR ( Amer) 114.0 ml/min Est GFR (Non-Af Amer) 98.3 ml/min BUN/Creatinine Ratio 20.4 H (10-20) Glucose 133 H (70-99(Fasting)) mg/dl Calcium 8.6 (8.5-10.1) mg/dl Magnesium 1.9 (1.7-2.4) mg/dl Total Bilirubin 0.4 (0.2-1.0) mg/dl AST 12 L (13-39) U/L ALT 9 (7-52) U/L Alkaline Phosphatase 48 (34-104) U/L Total Protein 5.8 L (6.0-8.3) gm/dl Albumin 3.7 (3.4-5.0) gm/dl Globulin 2.1 L (2.5-4.0) gm/dl Albumin/Globulin Ratio 1.8 (0.9-2) SARS-CoV-2, RNA, NAAT NEGATIVE (NEGATIVE) Blood Type Antibody Screen Administered Medications Discontinued Medications Tenecteplase 18 mg/ Syringe 3.6 mls @ 43.2 mls/min IV NOW ONE; Protocol Stop: 04/25/22 15:35 Last Admin: 04/25/22 15:28 Dose: 43.2 mls/min Documented By: CARLY Co-signed By: QUYNH Ioversol (Optiray 320 500ml) 111 ml IV ONCE ONE Stop: 04/25/22 15:02 Last Admin: 04/25/22 15:02 Dose: 111 ml Documented By: BABAK Miscellaneous (Stat Iv) 1 each N/A NOW STA Stop: 04/25/22 15:25 Last Admin: 04/25/22 15:31 Dose: 1 each Documented By: CARLY Sodium Chloride (Sodium Chloride 0.9% 10ml Flush) 20 ml IV NOW STA Stop: 04/25/22 15:25 Last Admin: 04/25/22 15:31 Dose: 20 ml Documented By: CARLY Imaging Data Radiologist's Impression: Head CT 04/25/22 14:48 CT SCAN OF THE BRAIN WITHOUT IV CONTRAST CLINICAL HISTORY: Strokelike symptoms. Neurological deficit. COMPARISON STUDY: CT of the brain dated 06/10/2014. MRI of the brain dated 01/24/2022. TECHNIQUE: Unenhanced axial CT scan of the brain is performed from the vertex to the skull base. A dose lowering technique was utilized adhering to the principles of ALARA. CT DOSE: 614.27 mGy.cm FINDINGS: Brain parenchyma: There is age-related involutional change noting minimal subcortical and periventricular microangiopathic disease. There is no hemorrhage, mass effect, or evidence of acute territorial ischemia by CT criteria. Cornejo-white matter differentiation is preserved. No extra-axial fluid collection is seen. Ventricles, sulci, cisterns: Prominent secondary to involutional change. Intracranial vasculature: There is atherosclerotic calcification of the ca vernous carotid arteries. Calvarium: Unremarkable. Sinuses and mastoids: The paranasal sinuses are clear. The mastoid air cells are well pneumatized. Orbits: The bony orbits are grossly intact. There are bilateral ocular lens implants. IMPRESSION: There is no hemorrhage, mass effect, or evidence of acute territorial ischemia by CT criteria. ACT 112: Negative or not required by law. Electronically signed by: Karson Salas M.D. 04/25/2022 3:01 PM Head CTA 04/25/22 14:48 CT ANGIOGRAM OF THE BRAIN; CT ANGIOGRAM OF THE NECK CLINICAL HISTORY: Strokelike symptoms. Neurological deficit. COMPARISON STUDY: Unenhanced CT of the brain performed the same day 04/25/2022. TECHNIQUE: Following the IV administration of 111 of Optiray 320, CT angiogram of the head and neck was performed from the aortic arch to the vertex. Images are reviewed in the axial, sagittal, and coronal planes. 3-D MIPS images are created and assessed. IV contrast was administered without complication. All measurements were calculated based on NASCET criteria. A dose lowering technique was utilized adhering to the principles of ALARA. CT DOSE: 450.45 mGy.cm FINDINGS: Brain parenchyma: There is age-related involutional change noting minimal microangiopathic disease. There is no evidence of hemorrhage, mass effect, or acute territorial ischemia noting angiographic phase technique. There is no evidence of enhancing mass lesion on the angiogram phase images. The ventricles, sulci, and cisterns are normal in configuration. Cornejo-white matter differentiation is preserved. No extra-axial fluid collection is seen. Thoracic aorta: Visualized portions of the thoracic aorta are normal in caliber. The aortic arch demonstrates standard 3-vessel anatomy. Right carotid arterial system: The right common carotid artery is widely patent, as on the right internal and external carotid arteries. Left carotid arterial system: The left common carotid artery is widely patent, as are the left internal and external carotid early. Vertebral arteries: There is mild to moderate stenosis at the origin of the left vertebral artery. The vertebral arteries are otherwise widely patent bilaterally noting right-sided dominance. Subclavian arteries: Widely patent bilaterally. Intracranial vasculature: The internal carotid arteries are patent at the skull base, as are the anterior and middle cerebral arteries bilaterally. The vertebrobasilar system and posterior cerebral arteries are widely patent. The right vertebral artery is dominant. There is no aneurysm, high-grade stenosis, or focal vessel cut off seen throughout the intracranial circulation. Jugular veins: Patent bilaterally. Dural sinuses: Patent. Lung apices: Partially visualized upper lobe lung parenchyma appears clear. Soft tissues: The visualized pharyngeal soft tissues are normal in appearance noting angiographic phase technique. The oropharyngeal airway appears widely patent. The salivary and thyroid glands are normal in appearance. No cervical lymphadenopathy is seen. Skeletal structures: The calvarium appears intact. The cervical spine is maintained. Postsurgical changes noted in the cervical spine. No lytic or blastic lesion is seen. Orbits: The bony orbits are intact. Orbital contents are normal as visualized noting bilateral ocular lens implants. Sinuses and mastoids: There is trace mucosal thickening in the right maxillary antrum. The remaining paranasal sinuses are clear. The mastoid air cells are well pneumatized. IMPRESSION: 1. There is no evidence of hemorrhage, mass effect, or acute territorial ischemia noting angiographic phase technique. 2. Unremarkable CT angiogram of the brain. 3. There is mild/moderate stenosis at the origin of the left vertebral artery. 4. Otherwise unremarkable CT angiogram of the neck. ACT 112: Negative or not required by law. Electronically signed by: Karson Salas M.D. 04/25/2022 3:19 PM Neck CTA 04/25/22 14:48 CT ANGIOGRAM OF THE BRAIN; CT ANGIOGRAM OF THE NECK CLINICAL HISTORY: Strokelike symptoms. Neurological deficit. COMPARISON STUDY: Unenhanced CT of the brain performed the same day 04/25/2022. TECHNIQUE: Following the IV administration of 111 of Optiray 320, CT angiogram of the head and neck was performed from the aortic arch to the vertex. Images are reviewed in the axial, sagittal, and coronal planes. 3-D MIPS images are created and assessed. IV contrast was administered without complication. All measurements were calculated based on NASCET criteria. A dose lowering technique was utilized adhering to the principles of ALARA. CT DOSE: 450.45 mGy.cm FINDINGS: Brain parenchyma: There is age-related involutional change noting minimal microangiopathic disease. There is no evidence of hemorrhage, mass effect, or acute territorial ischemia noting angiographic phase technique. There is no evidence of enhancing mass lesion on the angiogram phase images. The ventricles, sulci, and cisterns are normal in configuration. Cornejo-white matter differentiation is preserved. No extra-axial fluid collection is seen. Thoracic aorta: Visualized portions of the thoracic aorta are normal in caliber. The aortic arch demonstrates standard 3-vessel anatomy. Right carotid arterial system: The right common carotid artery is widely patent, as on the right internal and external carotid arteries. Left carotid arterial system: The left common carotid artery is widely patent, as are the left internal and external carotid early. Vertebral arteries: There is mild to moderate stenosis at the origin of the left vertebral artery. The vertebral arteries are otherwise widely patent bilaterally noting right-sided dominance. Subclavian arteries: Widely patent bilaterally. Intracranial vasculature: The internal carotid arteries are patent at the skull base, as are the anterior and middle cerebral arteries bilaterally. The vertebrobasilar system and posterior cerebral arteries are widely patent. The right vertebral artery is dominant. There is no aneurysm, high-grade stenosis, or focal vessel cut off seen throughout the intracranial circulation. Jugular veins: Patent bilaterally. Dural sinuses: Patent. Lung apices: Partially visualized upper lobe lung parenchyma appears clear. Soft tissues: The visualized pharyngeal soft tissues are normal in appearance noting angiographic phase technique. The oropharyngeal airway appears widely patent. The salivary and thyroid glands are normal in appearance. No cervical lymphadenopathy is seen. Skeletal structures: The calvarium appears intact. The cervical spine is maintained. Postsurgical changes noted in the cervical spine. No lytic or blastic lesion is seen. Orbits: The bony orbits are intact. Orbital contents are normal as visualized noting bilateral ocular lens implants. Sinuses and mastoids: There is trace mucosal thickening in the right maxillary antrum. The remaining paranasal sinuses are clear. The mastoid air cells are well pneumatized. IMPRESSION: 1. There is no evidence of hemorrhage, mass effect, or acute territorial ischemia noting angiographic phase technique. 2. Unremarkable CT angiogram of the brain. 3. There is mild/moderate stenosis at the origin of the left vertebral artery. 4. Otherwise unremarkable CT angiogram of the neck. ACT 112: Negative or not required by law. Electronically signed by: Karson Salas M.D. 04/25/2022 3:19 PM Discharge Plan Visit Data Chief Complaint: TIA Symptoms Stated Complaint: LEFT SIDES VISUAL DISTURBANCE, STROKE LIKE SYMPTOM ED Provider: Bennett Stiles Discharge Problem: Acute left-sided weakness, Multiple sclerosis, Cerebrovascular accident Patient Disposition: Admitted As Inpatient Condition: Fair Forms Stand Alone Forms: Counts Include 234 B[facility] At [facility] Prescriptions Prescriptions: No Action sumatriptan succinate [Imitrex] 100 mg tablet 100 mg PO DIRECTED PRN (Reason: migraine headache) Qty: 27 3RF Ocrevus 30 mg/mL solution 600 mg IV Q6MO Qty: 20 1RF Rx Instructions: 30 minutes before each infusion, premedicate with methylprednisolone 100mg IV, diphenhydramine 25mg IV, and acetaminophen 500mg PO. May give an additional 25mg diphenhydramine IV during infusion PRN. Keep rate at 160mL/hr at 90 minutes until end of infusion. tizanidine 2 mg tablet 4 mg PO TID PRN (Reason: muscle spasticity) Qty: 120 6RF diazepam [Valium] 5 mg tablet 5 mg PO .COMPLEX PRN (Reason: muscle spasms ) Qty: 60 1RF Rx Instructions: 5 mg PO IN THE AM, 5MG IN THE AFTERNOON AND 10MG QHS PRN albuterol sulfate [ProAir HFA] 90 mcg/actuation HFA aerosol inhaler 1 - 2 puff INHALATION Q4H PRN (Reason: Shortness Of Breath) Qty: 8.5 5RF oxcarbazepine [Trileptal] 150 mg tablet 150 mg PO BID Qty: 60 6RF gabapentin 800 mg tablet 800 mg PO QID 30 Days Qty: 120 5RF baclofen 20 mg tablet 20 mg PO TID Qty: 270 3RF cholecalciferol (vitamin D3) 50 mcg (2,000 unit) capsule 50 mcg PO QAM Cbd Oil 0.25 drp PO HS PRN (Reason: muscle spasms) sertraline [Zoloft] 100 mg tablet 200 mg PO QPM aspirin [Ecotrin Low Strength] 81 mg tablet,delayed release (DR/EC) 81 mg PO QPM Referrals Referrals: Saundra Burnette CRNP [Primary Care Provider] -
[2022-04-25 15:39] LABS: INR 1.1 (0.9-1.1); Partial Thromboplastin Time 27.7 Seconds (21.0-31.0); Prothrombin Time 11.4 Seconds (9.0-12.0)
[2022-04-25 15:52] LABS: Alanine Aminotransferase 9 U/L (7-52); Albumin Globulin Ratio 1.8 (0.9-2); Albumin Level 3.7 gm/dl (3.4-5.0); Alkaline Phosphatase 48 U/L (34-104); Anion Gap 3 (3-11); Aspartate Aminotransferase 12 U/L (13-39); BUN Creatinine Ratio 20.4 (10-20); Bilirubin,Total 0.4 mg/dl (0.2-1.0); Blood Urea Nitrogen 11 mg/dl (6-23); Calcium 8.6 mg/dl (8.5-10.1); Carbon Dioxide 28 mmol/L (21-32); Chloride 104 mmol/L (98-107); Est GFR (Non-African American) 98.3 ml/min; Globulin 2.1 gm/dl (2.5-4.0); Glucose 133 mg/dl (70-99(Fasting)); Magnesium 1.9 mg/dl (1.7-2.4); Potassium 3.7 mmol/L (3.5-5.1); Sodium 135 mmol/L (136-145); Total Protein 5.8 gm/dl (6.0-8.3)
--- NOTE | 2022-04-25 16:03 | History & Physical Report ---
Date of Service April 25, 2022 Assessment & Plan (1) Acute left-sided weakness: Plan: 66yo infusion for MS. L sided weakness, numbness, facial drop CVA s/p TNKase - TNKase @ 1520, sx onset @1400. Improving but not resolved - Aspirin, no blood thinners - No bleed, NO angio findings - SBP goal less than 180, transferred to ICU for post TN K care Repeat CT at 24 hours MRI pending Neuro consulted, received full dose aspirin on admission Plavix recommendatio ns pending MS Receives Ocrevus infusions which she took today. Anxiety/depression Continue sertraline 200 mg p.o. daily Spinal stenosis, chronic back pain Home diazepam, tizanidine, baclofen temporarily held pending swallow evaluation DVT prophylaxis: Indicated in the setting of TNKase Diet: N.p.o., pending speech swallow Disposition: ICU for per stroke protocol CODE STATUS: Full code (2) Depression: (3) Dysphagia: (4) Mild pulmonary hypertension: (5) Multiple sclerosis: History of Present Illness Primary Care Provider: SANDY Guerrier is a 66-year-old female with a past medical history of MS, spinal stenosis, B12 deficiency, hyperlipidemia, and no known history of diabetes who is receiving an infusion for MS when she developed left-sided weakness with dizziness and vision change at approximately [id number], was brought to the ER for evaluation. Telestroke was consulted, patient was recommended to get TNKase which was administered at 1520. Improving but without resolved symptoms following this. Patient is seen at the bedside. Also discussed with nursing staff. On admission patient had left-sided facial droop, arm weakness, leg weakness, and numbness of the left face. Left face was flaccid on attempted cheek puff. Patient had no resistance against gravity on initial assessment with a NIHSS of 13. On reassessment score is 12, but has a greatly reduced drift in left arm and leg compared to prior and facial asymmetry is improving. Some sensation returning to left facial touch. Patient seen at bedside with her present. She reports normally with her MS she has symptoms of generalized weakness in her lower extremities and fatigue, her current episode is completely different. She completed her infusion for MS this morning. Around 2:00 she had sudden onset left-sided arm and leg weakness, left-sided facial droop, and blurry/double vision. No nausea/vomiting, no chest pain, chest pressure. Reports she understood what was being said to her but she had difficulty speaking. Following TNKase she reports that she continues to feel weak on her left side, but less significantly than when she came in. Is still having some trouble speaking but speech is mostly fluent and she does not have any difficulty understanding speech or thinking of the correct words. She does endorse some blurry vision in her left eye, more peripheral and central. Denies history of bleeding/bleeding problems. Denies headache. No fever/chills/sweats. Medical History: Reviewed Medications: Reviewed Surgical History: Reviewed Allergies: Reviewed Social History: No tobacco use, no alcohol use Code Status: Full Allergies Allergy/AdvReac Type Severity Reaction Status Date / Time bee venom protein (honey bee) Allergy Severe THROAT Verified 04/25/22 16:24 SWELLING Gadolinium-Containing Allergy Severe THROAT Verified 04/25/22 16:24 Contrast Medi SWELLING WITH CT SCAN DYE amoxicillin Allergy Mild RASH Verified 04/25/22 16:24 hydromorphone [From Dilaudid] Allergy Mild Rash Verified 04/25/22 16:24 interferon beta-1a AdvReac Mild GI UPSET Verified 04/25/22 16:24 [From Avonex] Home Medications Medication Instructions Recorded Confirmed Type Cbd Oil 0.25 drp PO HS PRN muscle spasms 06/02/19 04/25/22 History cholecalciferol (vitamin D3) 50 50 mcg PO QAM 05/11/21 04/25/22 History mcg (2,000 unit) capsule sumatriptan succinate 100 mg 100 mg PO DIRECTED PRN migraine 10/30/21 04/25/22 Rx tablet (Imitrex) headache #27 tabs ocrelizumab 30 mg/mL intravenous 600 mg (20 mL) IV Q6MO multiple 11/10/21 04/25/22 Rx solution (Ocrevus) sclerosis #20 mL tizanidine 2 mg tablet 4 mg PO TID PRN muscle spasticity 01/08/22 04/25/22 Rx #120 tabs diazepam 5 mg tablet (Valium) 5 mg PO .COMPLEX PRN muscle spasms 01/10/22 04/25/22 Rx #60 tabs albuterol sulfate 90 mcg/actuation 1 - 2 puff inhalation Q4H PRN 10/27/22 01/18/23 Rx aerosol inhaler (ProAir HFA) Shortness Of Breath #8.5 grams baclofen 20 mg tablet 20 mg PO TID #270 tabs 02/02/22 04/25/22 Rx oxcarbazepine 150 mg tablet 150 mg PO BID #60 tabs 03/09/22 04/25/22 Rx (Trileptal) gabapentin 800 mg tablet 800 mg PO QID Pain 30 days #120 03/23/22 04/25/22 Rx tabs aspirin 81 mg tablet,delayed 81 mg PO QPM 04/25/22 04/25/22 History release (Ecotrin Low Strength) sertraline 100 mg tablet (Zoloft) 200 mg PO QPM 04/25/22 04/25/22 History 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 WEAKNESS LEFT FACE AND RIGHT FOOT Muscle spasm LEGS R/T MS Personal history of transient ischemic attack (TIA), and cerebral infarction without residual deficits 1991 > no residual effects Stress incontinence RELATED TO MS Surgical History History of arthroscopy LEFT KNEE AND RIGHT History of cataract surgery LEFT/RIGHT History of section X3 History of hysterectomy History of repair of rotator cuff RIGHT History of surgery PORT PLACEMENT-REMAINS IN PLACE LEFT UPPER CHEST-FLUSHED REGULARLY History of surgery LEFT CLAVICLE Hx of cervical spine surgery "FUSION" - PT REPORTS FULL ROM Hx of colonoscopy Hx of elbow surgery RIGHT Hx of ovarian cystectomy X5 Hx of spinal surgery X5 - TOTAL OF 5 BACK SURGERIES/1 CERVICAL SURGERY - HAS HARDWARE Hx of surgical amputation of finger RIGHT SMALL FINGER D/T INFECTION 40 YR AGO Family History Mother Diabetes Stroke Sister Diabetes Hypertension Denies family history of Ovarian cancer Prostate cancer Myocardial infarction Breast cancer Colorectal cancer Social History Smoking Status: Never smoker Second Hand Exposure: No; Hx Alcohol Use: No Hx Substance Use: Yes Last Used Substance: Days (ago) Last Used Substance Other:: USES EVERY OTHER DAY - DEPENDING ON SPASTICITY Substance Use Type Other:: MEDICAL MARIJUANA CARD-TINCTURE PRN FOR MUSCLE SPASMS Preferred Language: Luxembourger Communication Ability: Effective Visual Impairment: No Limitations Hearing Ability: Normal Body Specialist Required: No Beliefs That Will Affect Care: Hindu marital status: Current Living Situation: Spouse current occupational status: 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 NAD. Cooperative. HEENT: Atraumatic, normocephalic. Pulm: CTAB A&P. -wheezes, -rales, -rhonchi. Symmetrical chest rise. No increased work of breathing. No respiratory distress. Cardiac: RRR, -mrg. Radial pulses intact and symmetrical. Abdominal: Nontender, nondistended, soft. BS present. Left arm, left leg, left foot with intact sensation to soft touch but greatly diminished in quality/intensity compared to the right. Left-sided elbow flexion/extension, press service reader strength, hip flexion, and ankle dorsiflexi on/plantarflexion 3/5 compared to 5/5 on the right. left facial droop is present, on cheek puff air escapes through left side and is unable to perform complete seal. EOM intact, patient endorses blurry vision left lateral field diminished and blurry vision which sharpens on covering the left eye. Pupils equal and reactive to light. PG Care Time/CCT Total # of Minutes Spent Total Time Spent with Patient: Total time spent is greater than 50% in coordination of care (as documented) at patient's floor/unit and/or counseling patient: Coding Level of Care Code 00537 INT INP/OBS CARE 3/75MIN Diagnoses Acute left-sided weakness R53.1 Depression F32.9 Dysphagia R13.10 Mild pulmonary hypertension I27.20 Multiple sclerosis G35
[2022-04-25 16:35] LABS: Troponin I High Sensitivity 2.4 pg/ml (0-14)
--- NOTE | 2022-04-25 17:25 | Critical Care Consultation ---
Date of Consultation April 25, 2022 Assessment & Plan (1) Cerebrovascular accident: Reason critically ill: Patient is a 66 yo here with a PMH significant for MS and previous TIA/stroke who presented with stroke-like symptoms directly after an Ocrevus infusion and who was admitted to the ICU for post TNKase monitoring. Neuro: - acute CVA; pt received tenecteplase 18 mg at 3:28 PM 04/24 - continue neuro and VS checks per protocol - IV labetalol 10 mg PRN for SBP >180, DBP >105 - MRI w/o contrast pending - head CT w/o contrast ordered for 24 hours post TNKase Cardiac: - First troponin 2.4, second troponin neg - No concerns at this time Respiratory: - hx of SOB and difficulty breathing most likely d/t MS and muscle weakness - No concerns at this time GI: - NPO d/t difficulty swallowing on bedside swallow test in ED and persistent facial droop - pending speech assessment - will change diet and resume oral medications when able/appropriate Renal/electrolytes: Replace electrolytes as needed. : No concerns at this time. Lines/IV access: peripheral IV DVT ppx: contraindicated d/t TNKase administration Please refer to Dr. Starr's documentation for any further recommendations. (2) Multiple sclerosis: (3) Thrombolytic therapy administered within 2 hours of onset of symptoms: Supervising Physician Co-Signing Physician Notes Dr. Payton was resident physician during care of patient. I separately evaluated patient for barton portions of the history and the exam. I was present during the critical portion of medical decision making, and I discussed the case with the resident. I generally agree with the findings and plan. Patient complaining of headache prior to administration of TNKase headache has not largely changed. We will be obtaining MRI. Patient critically ill due to TNKase administration for possible CVA. History of Present Illness Reason for Consultation: post TNKase Requesting Physician: Avi Rocha MD Attending Physician: Avi Rocha MD History of Present Illness Pt is a 66 yo female with PMH of MS and previous TIA/CVA in 1991 presenting to the ICU post TNKase after experiencing a CVA. Pt had just finished an Ocrevus infusion for her MS this afternoon around 2 PM when she first noticed the development of visual symptoms. She describes that her vision was blurry and she starting seeing double. Then, her left side (both arm and leg) became weak and felt "." She also experienced a change in sensation on her left side. Tenecteplase 18 mg was administered at 3:28 PM 04/24. Lab work from this afternoon shows normal CBC, PT/INR, aPTT, slightly low Na at 135, and first troponin 2.4 and second troponin pending. At this time, pt states that her weakness in her left leg and arm has slightly improved. Her double vision is also improving but definitely still there. She describes seeing two things side by side and not on top of one another. Her double vision does not go away when she closes one eye, but her left eye has decreased vision. She describes that her left eye is "dark and roberts." She denies black out spots in her vision. Allergies Allergy/AdvReac Type Severity Reaction Status Date / Time bee venom protein (honey bee) Allergy Severe THROAT Verified 04/25/22 16:24 SWELLING Gadolinium-Containing Allergy Severe THROAT Verified 04/25/22 16:24 Contrast Medi SWELLING WITH CT SCAN DYE amoxicillin Allergy Mild RASH Verified 04/25/22 16:24 hydromorphone [From Dilaudid] Allergy Mild Rash Verified 04/25/22 16:24 interferon beta-1a AdvReac Mild GI UPSET Verified 04/25/22 16:24 [From Avonex] Home Medications Medication Instructions Recorded Confirmed Type Cbd Oil 0.25 drp PO HS PRN muscle spasms 06/02/19 04/25/22 History cholecalciferol (vitamin D3) 50 50 mcg PO QAM 05/11/21 04/25/22 History mcg (2,000 unit) capsule sumatriptan succinate 100 mg 100 mg PO DIRECTED PRN migraine 10/30/21 04/25/22 Rx tablet (Imitrex) headache #27 tabs ocrelizumab 30 mg/mL intravenous 600 mg (20 mL) IV Q6MO multiple 11/10/21 04/25/22 Rx solution (Ocrevus) sclerosis #20 mL tizanidine 2 mg tablet 4 mg PO TID PRN muscle spasticity 01/08/22 04/25/22 Rx #120 tabs diazepam 5 mg tablet (Valium) 5 mg PO .COMPLEX PRN muscle spasms 10/05/22 01/18/23 Rx #60 tabs albuterol sulfate 90 mcg/actuation 1 - 2 puff inhalation Q4H PRN 02/01/22 04/25/22 Rx aerosol inhaler (ProAir HFA) Shortness Of Breath #8.5 grams baclofen 20 mg tablet 20 mg PO TID #270 tabs 02/02/22 04/25/22 Rx oxcarbazepine 150 mg tablet 150 mg PO BID #60 tabs 03/09/22 04/25/22 Rx (Trileptal) gabapentin 800 mg tablet 800 mg PO QID Pain 30 days #120 03/23/22 04/25/22 Rx tabs aspirin 81 mg tablet,delayed 81 mg PO QPM 04/25/22 04/25/22 History release (Ecotrin Low Strength) sertraline 100 mg tablet (Zoloft) 200 mg PO QPM 04/25/22 04/25/22 History Patient History Medical History History of COVID-19 DX'D HOME TEST EARLY 04/2021-"SNIFFLES" > RESOLVED Hx of chronic bronchitis LAST INHALER USE 2-3 MONTHS Multiple sclerosis DX'D 1990-F/U DR BREWSTER WEAKNESS LEFT FACE AND RIGHT FOOT Muscle spasm LEGS R/T MS Personal history of transient ischemic attack (TIA), and cerebral infarction without residual deficits 1991 > no residual effects Stress incontinence RELATED TO MS Surgical History History of arthroscopy LEFT KNEE AND RIGHT History of cataract surgery LEFT/RIGHT History of section X3 History of hysterectomy History of repair of rotator cuff RIGHT History of surgery PORT PLACEMENT-REMAINS IN PLACE LEFT UPPER CHEST-FLUSHED REGULARLY History of surgery LEFT CLAVICLE Hx of cervical spine surgery "FUSION" - PT REPORTS FULL ROM Hx of colonoscopy Hx of elbow surgery RIGHT Hx of ovarian cystectomy X5 Hx of spinal surgery X5 - TOTAL OF 5 BACK SURGERIES/1 CERVICAL SURGERY - HAS HARDWARE Hx of surgical amputation of finger RIGHT SMALL FINGER D/T INFECTION 40 YR AGO Family History Mother Diabetes Stroke Sister Diabetes Hypertension Denies family history of Ovarian cancer Prostate cancer Myocardial infarction Breast cancer Colorectal cancer Social History Smoking Status: Never smoker Second Hand Exposure: No; Hx Alcohol Use: No Hx Substance Use: Yes Last Used Substance: Days (ago) Last Used Substance Other:: USES EVERY OTHER DAY - DEPENDING ON SPASTICITY Substance Use Type Other:: MEDICAL MARIJUANA CARD-TINCTURE PRN FOR MUSCLE SPASMS Preferred Language: Moldovan Communication Ability: Effective Visual Impairment: No Limitations Hearing Ability: Normal Qa Architect Required: No Beliefs That Will Affect Care: Mormonism marital status: Current Living Situation: Spouse current occupational status: retired 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 Vitals WNL. Neck: No thyromegaly. Trachea midline. Respiratory: CTA bilaterally. No rhonchi, wheezing, or crackles. Non labored respirations. Cardiovascular: RRR. No murmur noted. No LE edema. Neurologic: 4/5 strength in right upper and lower extremities. 3/5 muscle strength in left upper and lower extremities. 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 Left sided facial droop apparent when smiling. EOMI intact but w/ uncoordinated eye movements. Finger to nose testing positive. Decrease in peripheral visual gracia of left eye. Normal visual gracia on right. NIHSS 10. Results & Data Results & Data ([facility]) Vital Signs (Past 12 Hours) Vital Signs Temp Pulse Pulse Resp BP BP Pulse Ox 04/25/22 17:00 60 9 L 98 04/25/22 17:00 118/67 04/25/22 16:50 61 16 98 04/25/22 16:45 120/58 L 04/25/22 16:45 67 21 97 04/25/22 16:40 65 17 98 04/25/22 17:00 36.5 C 62 20 118/67 99 04/25/22 16:30 61 11 L 04/25/22 16:30 120/64 04/25/22 16:20 65 20 98 04/25/22 16:20 133/65 04/25/22 16:10 61 13 97 04/25/22 16:00 128/77 04/25/22 16:14 36.6 C 67 20 133/65 98 04/25/22 16:29 63 20 120/64 98 04/25/22 16:06 80 20 136/68 95 04/25/22 16:00 62 15 04/25/22 15:50 65 10 L 04/25/22 15:50 128/64 04/25/22 15:40 68 17 98 04/25/22 15:40 133/69 04/25/22 15:30 72 15 98 04/25/22 15:30 133/67 04/25/22 15:29 75 15 97 04/25/22 15:29 139/64 04/25/22 15:20 78 11 L 98 04/25/22 15:20 136/68 04/25/22 15:16 87 15 96 04/25/22 15:59 62 16 128/77 97 04/25/22 15:44 63 16 128/64 97 O2 Del Method 04/25/22 17:00 04/25/22 17:00 04/25/22 16:50 04/25/22 16:45 04/25/22 16:45 04/25/22 16:40 04/25/22 17:00 Room Air 04/25/22 16:30 04/25/22 16:30 04/25/22 16:20 04/25/22 16:20 04/25/22 16:10 04/25/22 16:00 04/25/22 16:14 Room Air 04/25/22 16:29 Room Air 04/25/22 16:06 Room Air 04/25/22 16:00 04/25/22 15:50 04/25/22 15:50 04/25/22 15:40 04/25/22 15:40 04/25/22 15:30 04/25/22 15:30 04/25/22 15:29 04/25/22 15:29 04/25/22 15:20 04/25/22 15:20 04/25/22 15:16 04/25/22 15:59 Room Air 04/25/22 15:44 Room Air Resident Activity Tracking Resident Involvement: Resident Care Provided Care Provided: Adult Hospital Medicine
[2022-04-25] MEDS ORDERED: LABETALOL HCL IV 5 MG/ML 20ML IV PRN (17:39)
[2022-04-25] MEDS ORDERED: PHARMACIST DISCHARGE MED REC CONSULT PRN (17:39)
[2022-04-25] MEDS: ICU Protocol for HYPERglycemia SCH ×2 (19:12→23:10)
[2022-04-25] MEDS ORDERED: ACETAMINOPHEN 1,000 MG/100 ML VIAL IV PRN (19:47)
[2022-04-25] MEDS ORDERED: LORazepam 2 MG/1 ML VIAL IV PRN (19:47)
[2022-04-25 23:05] LABS: Appearance Urine Clear (Clear); Bacteria Urine Automated Negative (Negative); Bilirubin Urine Negative (Negative); Blood Urine Negative (Negative); Color Urine Yellow; Epithelial Cell Urine Auto >30 /lpf (0-5); Glucose Urine UA Negative (Negative); Ketones Urine Negative (Negative); Leukocyte Esterase Urine 1+ (Negative); Nitrite Urine Negative (Negative); Protein Urine Negative (Negative); RBC Urine Automated 0-4 /hpf (0-4); Specific Gravity Urine > 1.045 (1.000-1.030); Urobilinogen Urine Negative (Negative)
[2022-04-26] MEDS ORDERED: HEPARIN 100 UNIT/ML 5ML FLUSH FLUSH PRN (01:54)
[2022-04-26 04:57] LABS: Basophils # (auto) 0.03 K/uL (0-0.2); Basophils % (auto) 0.7 %; Eosinophils # (auto) 0.08 K/uL (0-0.50); Eosinophils % (auto) 1.8 %; Hematocrit (blood only) 36.9 % (34.1-44.9); Hemoglobin 12.8 g/dl (12.0-16.0); Immature Granulocytes # (auto) 0.01 K/uL (0.00-0.02); Immature Granulocytes % (auto) 0.2 %; Lymphocytes # (auto) 1.19 K/uL (1.2-3.4); Lymphocytes % (auto) 26.3 %; Mean Corpuscular Hemoglobin 31.5 pg (25.0-34.0); Mean Corpuscular Hgb Conc 34.7 g/dL (32.0-36.0); Mean Corpuscular Volume 90.9 fL (80.0-100.0); Mean Platelet Volume 10.2 fL (9.4-12.3); Monocytes % (auto) 11.1 %; Neutrophils # (auto) 2.71 K/uL (1.4-6.5); Neutrophils % (auto) 59.9 %; Platelet Count 172 K/uL (130-400); RDW Standard Deviation 39.8 fL (36.4-46.3); Red Blood Count 4.06 M/uL (3.93-5.22); White Blood Count 4.52 K/ul (4.8-10.8)
[2022-04-26 05:33] LABS: BUN Creatinine Ratio 26.2 (10-20); Chol HDL Ratio 3.3 (0-5); Creatinine Clr Calc Pharmacy 126.5 ml/min; Est GFR (African American) 123.8 ml/min; Est GFR (Non-African American) 106.8 ml/min; Phosphorus 3.5 mg/dl (2.5-4.9); Potassium 3.4 mmol/L (3.5-5.1)
[2022-04-26 06:26] LABS: Estimated Average Glucose 105 mg/dl; Hemoglobin A1C 5.3 % (4.5-5.6)
--- NOTE | 2022-04-26 06:55 | Critical Care Progress Note ---
Date of Service April 26, 2022 Assessment & Plan (1) Cerebrovascular accident: Plan: Reason critically ill: Patient is a 66 yo female with a PMH significant for MS and previous TIA/stroke who presented with stroke-like symptoms directly after an Ocrevus infusion and who was admitted to the ICU for post TNKase monitoring. Neuro: - CAM-ICU: negative - acute CVA; pt received tenecteplase 18 mg at 3:28 PM 04/25 - showing clinical improvement, NIHSS improved from 10 to 3 today - continue neuro and VS checks per protocol - IV labetalol 10 mg PRN for SBP >180, DBP >105; no doses necessary overnight - original head CT neg; CTA head/neck showed mild/moderate stenosis of origin of left vertebral artery - MRI w/o contrast showed scattered foci of abnormality throughout white matter most likely related to MS, no hemorrhage or ischemia identified - to obtain head CT w/o contrast at 24 hours post TNKase - echo pending - cholesterol elevated w/ total at 326 and LDL at 203. Would typically require long term care pharmacist therapy with high intensity statin; pt states statins have been avoided in the past d/t chance of worsening muscle spasms. Appreciate recommendation from neuro - hx of multiple sclerosis; continue home medications Cardiac: - First troponin 2.4, second troponin neg at 2.3 - Pt denies chest pain, heart palpitations, SOB Respiratory: - hx of SOB and difficulty breathing most likely d/t MS and muscle weakness - continue home albuterol q4hr - No concerns at this time GI: - passed bedside dysphagia screening; facial droop no longer present - cleared for advancing diet from speech - diet: heart healthy - resume home PO medications Renal/electrolytes: - K 3.4 this AM, given 40 meq IV - Replace electrolytes as needed : No concerns at this time Endo: - A1c of 5.3% Lines/IV access: peripheral IV DVT ppx: chemical ppx contraindicated d/t TNKase administration, SCDs on and functional Please refer to Dr. Starr's documentation for any further recommendations. (2) Multiple sclerosis: (3) Thrombolytic therapy administered within 2 hours of onset of symptoms: Admission and Anticipated Discharge Date Admission Date: April 25, 2022 Supervising Physician Co-Signing Physician Notes Dr. Payton was resident physician during care of patient. I separately evaluated patient for barton portions of the history and the exam. I was present during the critical portion of medical decision making, and I discussed the case with the resident. I generally agree with the findings and plan. Will defer decision to initiate statin therapy to neurology or primary care provider as this has been avoided secondary to MS and concern for exacerbation of neuromuscular disease. Reviewed MRI findings, significant clinical improvement over the last 12 hours. Stable for downgrade at 24 hours post tPA administration Subjective Patient is a 66 yo female with a PMH significant for MS and previous TIA/stroke who presented with stroke-like symptoms directly after an Ocrevus infusion and who was admitted to the ICU for post TNKase monitoring. No acute events overnight. Pt is doing well this morning. No further development of symptoms; her weakness, visual deficits, and sensation changes have improved. Pt states her double vision is at baseline for her (d/t the MS) but her vision is still blurry. Her left eye is no longer "dark and roberts" like yesterday but brighter. Pt denies chest pain, SOB, and headaches Review of Systems Review of Systems: All systems reviewed & are unremarkable except as noted in HPI & below Physical Exam Constitutional: NAD. Vitals WNL. Neck: No thyromegaly. Trachea midline. Respiratory: CTA bilaterally. Mildly restricted breath sounds throughout. No rhonchi, crackles, or wheezing. Non labored breathing. Cardiovascular: RRR. No murmur noted. No LE edema. Neurologic: 4/5 muscle strength in bilateral upper and lower extremities. Fitter Type Bar And Segment strength improved on left, but still less compared to right side. Gross sensation intact. Visual gracia equal, left side much improved from yesterday. Finger to nose testing positive. Pronator drift positive on left side, but may be due to reduced strength on that side. NIHSS 3. Psychiatric: Alert and oriented. Mood and affect congruent. Results & Data Results & Data ([facility]) Vital Signs (Past 12 Hours) Vital Signs Temp Pulse Pulse Resp BP Pulse Ox O2 Del Method 04/26/22 05:45 36.6 C 71 16 114/54 L 96 Room Air 04/26/22 04:45 36.6 C 59 L 16 111/60 96 Room Air 04/26/22 03:45 36.6 C 62 16 114/58 L 95 Room Air 04/26/22 02:45 56 L 16 118/59 L 95 Room Air 04/26/22 01:45 36.6 C 59 L 16 112/53 L 95 Room Air 04/26/22 00:45 36.6 C 56 L 16 102/54 L 95 Room Air 04/25/22 23:45 36.6 C 60 16 111/52 L 94 Room Air 04/25/22 23:15 59 L 16 106/60 98 Room Air 04/25/22 22:53 55 L 04/25/22 21:15 36.6 C 61 16 110/55 L 96 Room Air 04/25/22 21:45 36.6 C 55 L 16 107/53 L 98 Room Air 04/25/22 22:45 36.6 C 55 L 16 120/64 98 Room Air 04/25/22 20:45 36.6 C 55 L 16 112/54 L 96 Room Air 04/25/22 20:00 59 L 04/25/22 20:15 36.6 C 58 L 16 107/51 L 98 Room Air 04/25/22 19:45 36.6 C 60 16 112/66 98 Room Air 04/25/22 19:15 36.6 C 61 16 100/74 98 Room Air Resident Activity Tracking Resident Involvement: Resident Care Provided Care Provided: Adult Hospital Medicine
[2022-04-26] MEDS: POTASSIUM CHLORIDE / WTR 10 MEQ/100 ML PLCT IV SCH ×4 (07:05→10:16)
[2022-04-26] MEDS: ICU Protocol for HYPERglycemia SCH ×4 (07:09→20:59)
[2022-04-26] MEDS ORDERED: diazePAM 5 MG TABLET PO PRN (07:51)
--- NOTE | 2022-04-26 08:29 | Magnetic Resonance Report ---
MRI OF THE BRAIN WITHOUT IV CONTRAST CLINICAL HISTORY: Strokelike symptoms status post TPA. COMPARISON STUDY: CT of the brain dated 04/25/2022. MRI of the brain dated 01/24/2022. TECHNIQUE: MRI of the brain was performed utilizing various T1 and T2-weighted sequences in the axial , sagittal, and coronal planes. IV contrast was not administered for this examination. FINDINGS: Brain parenchyma: There is age-related change. Scattered foci of T2 signal abnormality within the sub cortical and periventricular white matter are similar to previous. There is no hemorrhage or mass eff ect. There is no restricted diffusion to suggest acute ischemia. Cornejo-white matter differentiation is preserved. No extra-axial fluid collection is seen. The cerebellar tonsils are normal in configurati on. Ventricles, sulci, and cisterns: Prominent secondary to involutional change. Pituitary and sella: Unremarkable. Intracranial vasculature: Normal flow voids are maintained at the skull base. Orbits: The bony orbits are grossly intact. Orbital contents are normal in appearance noting bilatera l ocular lens implants. Sinuses and mastoids: Clear. Calvarium: Unremarkable. Cervical cord: Partially visualized cervical spinal cord is normal in morphology and signal intensity . IMPRESSION: 1. There is no hemorrhage, mass effect, or evidence of acute ischemia. 2. Scattered foci of T2 signal abnormality seen throughout the white matter are similar to previous a nd likely related to the patient's history of multiple sclerosis. ACT 112: Negative or not required by law. Electronically signed by: Karson Salas M.D. 04/26/2022 8:28 AM
[2022-04-26] MEDS: BACLOFEN 20 MG TAB PO SCH ×3 (09:01→21:25)
[2022-04-26] MEDS: OXcarbazepine 150 MG TABLET PO SCH ×2 (09:01→21:25)
[2022-04-26] MEDS: GABAPENTIN 800 MG TAB PO SCH ×4 (09:02→21:25)
--- NOTE | 2022-04-26 10:45 | Neurology Consultation ---
Date of Consultation April 26, 2022 Assessment & Plan (1) Multiple sclerosis: (2) Acute left-sided weakness: (3) Thrombolytic therapy administered within 2 hours of onset of symptoms: (4) H/O migraine: Plan 66-year-old female with a history of multiple sclerosis diagnosed over 20 years ago, may have primary progressive MS although relapsing remitting followed by secondary progressive not completely excluded. It is notable that her degree of demyelinating disease is moderate at worst on brain MRI, and without any evidence of spinal cord demyelination on MRI of the cervical and thoracic spine. In spite of the relatively mild nature of her demyelinating disease on imaging, she has considerable disability at baseline and has been ambulating with a walker for many years, she also relays a history of incontinence and has had a few episodes of brief painful vision loss affecting both the left and right eye, thought to be optic neuritis. Her history is also notable for having undergone both cervical and lumbar spinal fusion surgeries with failed back syndrome, postlaminectomy syndrome, chronic pain. I also note her history of migraine for which she has a prescription for sumatriptan hand. She presented to the emergency department yesterday after receiving an Ocrevus infusion for her multiple sclerosis with acute neurologic symptoms potentially concerning for stroke. She did receive TNKase after telestroke consultation with a specialist at [facility]. It is notable that her subsequent brain MRI is negative for any evidence of acute process, specifically no evidence of restricted diffusion that would otherwise suggest an acute or subacute infarct. In spite of this negative imaging finding, she does exhibit mild left-sided weakness this morning. She had also endorsed a low-grade frontal headache which has subsequently resolved. I also note the occurrence of associated dimming or graying down of vision affecting the left eye in association with her left-sided weakness. Although this constellation of symptoms could be consistent with an evolving, large right hemispheric stroke (with involvement of the right occipital lobe, and right frontal lobe), it is also possible, if perhaps not more likely, that her symptoms are consistent with a complicated migraine. Would also need to consider an MS relapse or exacerbation as a potential cause of her symptoms. Although this patient does have gadolinium contrast listed in her allergies. She did have a gadolinium enhanced MRI of the abdomen completed at an outside facility this past February without any significant complications. Therefore, at this point, I would recommend completion of an MRI of the brain, MS protocol, with and without gadolinium enhancement to further exclude the possibility of an acute MS lesion. May need to coordinate with radiology for premedication with prednisone. Would recommend obtaining a follow-up CT of the head today to ensure no hemorrhagic conversion. Of no evidence of hemorrhage would be able to restart daily low-dose aspirin, 24 hours after administration of TNKase. I do not see a reason to switch from daily low-dose aspirin to clopidogrel at this time. Would recommend obtaining 30-day mobile cardiac outpatient telemetry to further exclude atrial fibrillation. She has had some PACs and PVCs with previous cardiac monitoring. If she is found to have atrial fibrillation with then need to consider anticoagulation. Furthermore, given the possibility that her current presentation is consistent with stroke, would need to recommend against utilization of sumatriptan for acute migraine treatment going forward. An oral CGRP xavier such as Nurtec ODT or Ubrelvy would be appropriate. Patient usually follows with Dr. Brewster or Lula Rubio PA-C, in neurology clinic, she may follow-up as an outpatient in 2 to 4 weeks after discharge. History of Present Illness Reason for Consultation: stroke?, s/p TNKase Requesting Physician: Avi Rocha MD Attending Physician: Avi Rocha MD History of Present Illness The patient is a 66-year-old female with a history of multiple sclerosis, following with Dr. Brewster, diagnosed over 20 years ago, presenting with leg weakness, numbness, and ambulatory dysfunction. She reports that her gait difficulty has been persistent from onset and never resolved. She began using a cane around the time of her initial presentation and has subsequently progressed to a walker. She recalls having an episode of painful vision loss affecting both the left and right eye at different time points. She believes these episodes lasted about 24 hours. She has also had episodes of weakness affecting both sides of the body, although typically the right side. She has had episodes of double vision, chronic fatigue, and some cognitive symptoms as well. She has moderate demyelinating disease burden on brain MRI but no lesions on imaging of the cervical and thoracic spinal cord. She indicates that she had a lumbar puncture completed that was positive or consistent with MS. I cannot find a copy of these LP results which the patient believes were done at an outside facility, possibly [facility]. Her history is also notable for cervical and lumbar fusion. She has chronic low back pain, failed back, postlaminectomy syndrome. She has been on multiple different treatments for her MS over the years including Copaxone, Avonex, Rebif, Tecfidera, Tysabri, Gilenya, and most recently Ocrevus. She has been on Ocrevus for about the past 3 years. She will tend to notice an increase in MS symptoms within a week before each Ocrevus infusion. The patient had finished receiving an Ocrevus infusion yesterday. Within an hour or so of infusion completion, she developed sudden onset left-sided weakness and sensory loss, left face arm and leg, associated dimming of the vision in her left eye, slurred speech, and low-grade frontal headache. Her clinical presentation was concerning for possible stroke and she was evaluated in the emergency department. Her weakness have persisted at that time. A CT of the brain was negative for hemorrhage or acute process. CT angiography of the head and neck was fairly unremarkable, there was mild to moderate stenosis at the origin of the left vertebral artery, no other significant vascular abnormality identified. I did independently review these images and agree with these findings as described by the interpreting radiologist. The patient did have a telestroke consultation and was administered TNKase. She had a follow-up MRI completed which I reviewed as well. The study was negative for acute or subacute infarct. There are scattered T2 hyperintensities throughout the cerebral white matter, some periventricular, some subcortical, which would be consistent with patient's history of multiple sclerosis. I note that the degree of demyelination is quite minimal and fairly nonspecific in character. This morning, the patient reports that her symptoms have largely resolved. No vision loss or headache at this time. She is aware of mild weakness affecting the left arm and leg and difficulty with motor control in general that may be chronic. Allergies Allergy/AdvReac Type Severity Reaction Status Date / Time bee venom protein (honey bee) Allergy Severe THROAT Verified 04/25/22 16:24 SWELLING Gadolinium-Containing Allergy Severe THROAT Verified 04/25/22 16:24 Contrast Medi SWELLING WITH CT SCAN DYE amoxicillin Allergy Mild RASH Verified 04/25/22 16:24 hydromorphone [From Dilaudid] Allergy Mild Rash Verified 04/25/22 16:24 interferon beta-1a AdvReac Mild GI UPSET Verified 04/25/22 16:24 [From Avonex] Home Medications Medication Instructions Recorded Confirmed Type Cbd Oil 0.25 drp PO HS PRN muscle spasms 06/02/19 04/25/22 History cholecalciferol (vitamin D3) 50 50 mcg PO QAM 05/11/21 04/25/22 History mcg (2,000 unit) capsule sumatriptan succinate 100 mg 100 mg PO DIRECTED PRN migraine 10/30/21 04/25/22 Rx tablet (Imitrex) headache #27 tabs ocrelizumab 30 mg/mL intravenous 600 mg (20 mL) IV Q6MO multiple 11/10/21 04/25/22 Rx solution (Ocrevus) sclerosis #20 mL tizanidine 2 mg tablet 4 mg PO TID PRN muscle spasticity 01/08/22 04/25/22 Rx #120 tabs diazepam 5 mg tablet (Valium) 5 mg PO .COMPLEX PRN muscle spasms 01/10/22 04/25/22 Rx #60 tabs albuterol sulfate 90 mcg/actuation 1 - 2 puff inhalation Q4H PRN 02/01/22 04/25/22 Rx aerosol inhaler (ProAir HFA) Shortness Of Breath #8.5 grams baclofen 20 mg tablet 20 mg PO TID #270 tabs 02/02/22 04/25/22 Rx oxcarbazepine 150 mg tablet 150 mg PO BID #60 tabs 03/09/22 04/25/22 Rx (Trileptal) gabapentin 800 mg tablet 800 mg PO QID Pain 30 days #120 03/23/22 04/25/22 Rx tabs aspirin 81 mg tablet,delayed 81 mg PO QPM 04/25/22 04/25/22 History release (Ecotrin Low Strength) sertraline 100 mg tablet (Zoloft) 200 mg PO QPM 04/25/22 04/25/22 History Patient History Medical History History of COVID-19 DX'D HOME TEST EARLY 04/2021-"SNIFFLES" > RESOLVED Hx of chronic bronchitis LAST INHALER USE 2-3 MONTHS Multiple sclerosis DX'D 1990-F/U DR BREWSTER WEAKNESS LEFT FACE AND RIGHT FOOT Muscle spasm LEGS R/T MS Personal history of transient ischemic attack (TIA), and cerebral infarction without residual deficits 1991 > no residual effects Stress incontinence RELATED TO MS Surgical History History of arthroscopy LEFT KNEE AND RIGHT History of cataract surgery LEFT/RIGHT History of section X3 History of hysterectomy History of repair of rotator cuff RIGHT History of surgery PORT PLACEMENT-REMAINS IN PLACE LEFT UPPER CHEST-FLUSHED REGULARLY History of surgery LEFT CLAVICLE Hx of cervical spine surgery "FUSION" - PT REPORTS FULL ROM Hx of colonoscopy Hx of elbow surgery RIGHT Hx of ovarian cystectomy X5 Hx of spinal surgery X5 - TOTAL OF 5 BACK SURGERIES/1 CERVICAL SURGERY - HAS HARDWARE Hx of surgical amputation of finger RIGHT SMALL FINGER D/T INFECTION 40 YR AGO Family History Mother Diabetes Stroke Sister Diabetes Hypertension Denies family history of Ovarian cancer Prostate cancer Myocardial infarction Breast cancer Colorectal cancer Social History Smoking Status: Never smoker Second Hand Exposure: No; Hx Alcohol Use: No Hx Substance Use: Yes Last Used Substance: Days (ago) Last Used Substance Other:: USES EVERY OTHER DAY - DEPENDING ON SPASTICITY Substance Use Type Other:: MEDICAL MARIJUANA CARD-TINCTURE PRN FOR MUSCLE SPASMS Preferred Language: Jordanian Communication Ability: Effective Visual Impairment: No Limitations Hearing Ability: Normal [employer]rawler Bo[employer]wain Required: No Beliefs That Will Affect Care: Quaker marital status: Current Living Situation: Spouse current occupational status: retired 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 How many Children do You have: 3 Feels Safe at Home: Yes Childhood Exposure to Second-Hand Smoke: No caffeine: Yes (Coffee a day ) Dental Care, Regularly: Yes Physical Activity Frequency: Other Physical Activity Frequency Comment: Occasional exercise Seatbelt Use: always Sunscreen Use: Yes Assistive Devices: Walker Review of Systems Constitutional: no fever and no chills Eyes: as per Subjective / HPI Ear, Nose, Mouth, Throat: no ear pain and no hearing loss Respiratory: + dyspnea Cardiovascular: + palpitations; no chest pain Gastrointestinal: no nausea and no vomiting Genitourinary: + urinary incontinence Musculoskeletal: + back pain; no myalgia Integumentary: no rash and no lesions Neurologic: as per Subjective / HPI Psychiatric: no depression and no anxiety Hematologic / Lymphatic: no easy bleeding and no easy bruising Exam (Neuro) Constitutional: well developed and well nourished; no acute distress Eyes: PERRL, normal accommodation and EOM intact bilaterally; no fundoscopic abnormality and no papilledema Cardiovascular: Vessels: normal carotid upstroke; no carotid bruit Neurologic: Oriented to:: Person, Place and Time Memory: Short Term Intact and Remote Intact Attention: Span Intact and Concentration Intact Speech Fluency: negative Dysarthria or Dysfluency Speech Aphasia: negative Aphasia Fund of Knowledge: Current Events, Past History and Vocabulary Cranial Nerves: Normal II, III, IV, , V, VII, VIII, IX, X, XI and XII Motor Str ength: Weakness Upper Extremities, Weakness Lower Extremities and Hemiparesis (mild) Laterality: Left Motor Tone: Normal Lower Extremities and Normal Upper Extremities Muscle Bulk/Involuntary Movements: Action Tremor Sensation: Proprioception Intact; negative Light Touch Intact, Pain/Temperature Intact or Vibration Intact Coordination: Finger-Nose Abnormal and Heel-Bullock Abnormal Deep Tendon Reflexes: Rt Triceps: 2+, Lt Triceps: 2+, Rt Biceps: 2+, Lt Biceps: 2+, Rt Brachioradialis: 2+, Lt Brachioradialis: 2+, Rt Patellar: 2+, Lt Patellar: 2+, Rt Ankle: 2+ and Lt Ankle: 2+ Special Tests: negative Babinski Present Details: Gait cannot be tested in the context of patient's current neurological status. Results & Data ([facility]) Vital Signs (Past 12 Hours) Vital Signs Temp Pulse Pulse Resp BP Pulse Ox O2 Del Method 04/26/22 09:00 36.8 C 70 18 133/64 97 Room Air 04/26/22 08:45 77 18 133/62 96 Room Air 04/26/22 07:45 36.7 C 64 20 116/61 97 Room Air 04/26/22 06:45 36.6 C 66 16 122/64 97 Room Air 04/26/22 05:45 36.6 C 71 16 114/54 L 96 Room Air 04/26/22 04:45 36.6 C 59 L 16 111/60 96 Room Air 04/26/22 03:45 36.6 C 62 16 114/58 L 95 Room Air 04/26/22 02:45 56 L 16 118/59 L 95 Room Air 04/26/22 01:45 36.6 C 59 L 16 112/53 L 95 Room Air 04/26/22 00:45 36.6 C 56 L 16 102/54 L 95 Room Air 04/25/22 23:45 36.6 C 60 16 111/52 L 94 Room Air 04/25/22 23:15 59 L 16 106/60 98 Room Air 04/25/22 22:53 55 L 04/25/22 22:45 36.6 C 55 L 16 120/64 98 Room Air Laboratory Results WBC 4.52, hemoglobin 12.8, hematocrit 36.9, platelet count 172, sodium 141, potassium 3.4, BUN 11, creatinine 0.42, glucose 91, hemoglobin A1c 5.3, calcium 9.0, magnesium 2.0, AST 12, ALT 9, triglycerides 127, cholesterol 326, LDL 203, VLDL 25, HDL [address] of the head, CT angiography of the head and neck, and brain MRI are as described in the history of present illness. I also reviewed patient's previous MRIs of the brain, cervical, and thoracic spine completed this past January. Notably, no evidence of spinal cord lesions. Postsurgical/fusion changes involving the cervical spine noted. An electrocardiogram revealed a normal sinus rhythm, 63 bpm. An echocardiogram revealed normal left ventricular size, thickness and function, no regional wall motion abnormalities, ejection fraction 60 to 65%. Left atrium mildly dilated. Patient had a cardiac event monitor completed in May 2021, sinus rhythm, asymptomatic occasional PVCs and PACs noted. PG Care Time/CCT Total # of Minutes Spent Total Time Spent with Patient: Total time spent is greater than 50% in coordination of care (as documented) at patient's floor/unit and/or counseling patient: Coding Level of Care Code 23478 INT INP/OBS CARE 3/75MIN Diagnoses Multiple sclerosis G35 Acute left-sided weakness R53.1 Thrombolytic therapy administered within 2 hours of onset of symptoms H/O migraine Z86.69
[2022-04-26] MEDS: ALBUTEROL HFA 8 GM INHALER INH SCH ×4 (10:48→20:17)
--- NOTE | 2022-04-26 14:21 | Pharmacy Report ---
- Date of Service April 26, 2022 - Pharmacy CVA/TIA Medication Review Medications to Prevent Stroke handout has been added to the patients discharge packet. Antiplatelet(s) * HELD for TNKase administration- to start asa after 24 hours Cholesterol * High intensity statin deferred for now d/t history of multiple sclerosis; f/u with neurology DVT Prophylaxis * SCD Therapeutic Anticoagulation * No history of Afib/Aflutter noted Type 2 Diabetes * Patient does not have T2DM
--- NOTE | 2022-04-26 15:46 | CT Scan Report ---
CT SCAN OF THE BRAIN WITHOUT IV CONTRAST CLINICAL HISTORY: Strokelike symptoms status post TPA. COMPARISON STUDY: CT and MRI of the brain dated 04/25/2022. TECHNIQUE: Unenhanced axial CT scan of the brain is performed from the vertex to the skull base. A do se lowering technique was utilized adhering to the principles of ALARA. CT DOSE: 614.27 mGy.cm FINDINGS: Brain parenchyma: There is age-related involutional change noting minimal subcortical and periventric ular microangiopathic disease. There is no hemorrhage, mass effect, or evidence of acute territorial ischemia by CT criteria. Cornejo-white matter differentiation is preserved. No extra-axial fluid collect ion is seen. Ventricles, sulci, cisterns: Prominent secondary to involutional change. Intracranial vasculature: There is atherosclerotic calcification of the cavernous carotid arteries. Calvarium: Unremarkable. Sinuses and mastoids: The paranasal sinuses are clear. The mastoid air cells are well pneumatized. Orbits: The bony orbits are grossly intact. There are bilateral ocular lens implants. IMPRESSION: There is no hemorrhage, mass effect, or evidence of acute territorial ischemia by CT crit tiffanie. No change from yesterday. ACT 112: Negative or not required by law. Electronically signed by: Karson Salas M.D. 04/26/2022 3:45 PM
--- NOTE | 2022-04-26 16:51 | XCELERA ---
[id number]
[2022-04-26] MEDS ORDERED: SERTRALINE HCL 100 MG TABLET PO SCH (21:00)
[2022-04-26] MEDS ORDERED: ASPIRIN 81 MG ECTAB PO SCH (21:00)
--- NOTE | 2022-04-26 21:18 | Magnetic Resonance Report ---
MR brain MS wo con CLINICAL HISTORY: stroke-like symptoms, concern for acute MS lesion TECHNIQUE: Multiplanar and multisequence MR images of the brain were obtained without intravenous con trast. Comparison: Comparison is made to MRI brain MS protocol 01/24/2022 FINDINGS: No abnormal restricted diffusion is identified. Numerous white matter lesions are seen in the subcort ical, periventricular, deep white matter. These are unchanged from prior exam. The ventricular system is normal in appearance. No mass is seen. There is no mass effect or midline shift. There is no evid ence of acute intraparenchymal hemorrhage. No extra axial fluid collections are seen. The corpus call osum, pituitary gland, and cerebellar tonsils appear grossly unremarkable. Flow voids of the major intracranial arterial vessels are identified. The imaged portions of the para nasal sinuses, mastoid air cells, and orbits are unremarkable. IMPRESSION: Redemonstration of multiple white matter lesions, similar to prior exam. No new lesions are seen to s uggest active demyelination in the interval. ACT 112: Negative or not required by law. Electronically signed by: Adam Jha M.D. 04/26/2022 9:16 PM
[2022-04-26] MEDS ORDERED: predniSONE 50 MG TAB PO ONE (23:00)
[2022-04-27] MEDS ORDERED: predniSONE 50 MG TAB PO ONE ×2 (05:00→11:00)
[2022-04-27 05:34] LABS: Hematocrit (blood only) 37.2 % (34.1-44.9); Hemoglobin 12.9 g/dl (12.0-16.0); Mean Corpuscular Hemoglobin 31.4 pg (25.0-34.0); Mean Corpuscular Hgb Conc 34.7 g/dL (32.0-36.0); Mean Corpuscular Volume 90.5 fL (80.0-100.0); Mean Platelet Volume 10.1 fL (9.4-12.3); Platelet Count 176 K/uL (130-400); RDW Coefficient of Variation 12.1 % (11.5-14.5); RDW Standard Deviation 39.8 fL (36.4-46.3); Red Blood Count 4.11 M/uL (3.93-5.22); White Blood Count 4.23 K/ul (4.8-10.8)
[2022-04-27 06:07] LABS: BUN Creatinine Ratio 21.7 (10-20); Calcium 8.9 mg/dl (8.5-10.1); Creatinine Clr Calc Pharmacy 115.5 ml/min; Est GFR (African American) 120.1 ml/min; Est GFR (Non-African American) 103.7 ml/min; Magnesium 1.9 mg/dl (1.7-2.4); Phosphorus 4.2 mg/dl (2.5-4.9); Potassium 3.9 mmol/L (3.5-5.1)
[2022-04-27] MEDS: ALBUTEROL HFA 8 GM INHALER INH SCH ×2 (07:34→11:19)
[2022-04-27] MEDS: GABAPENTIN 800 MG TAB PO SCH ×2 (07:43→13:36)
[2022-04-27] MEDS: BACLOFEN 20 MG TAB PO SCH (07:43)
[2022-04-27] MEDS: ICU Protocol for HYPERglycemia SCH ×2 (07:43→11:42)
[2022-04-27] MEDS: OXcarbazepine 150 MG TABLET PO SCH (07:43)
--- NOTE | 2022-04-27 09:43 | Electrocardiogram Report ---
Test Reason : Blood Pressure : / mmHG Vent. Rate : 063 BPM Atrial Rate : 063 BPM P-R Int : 174 ms QRS Dur : 080 ms QT Int : 390 ms P-R-T Axes : 030 019 047 degrees QTc Int : 399 ms Normal sinus rhythm Nonspecific T wave abnormality Abnormal ECG When compared with ECG of 13-JUL-2021 08:23, T wave inversion now evident in Anterior leads Confirmed by Brice Hernandes ([id number]) on 04/27/2022 9:43:30 AM Referred By: REFERRED SELF Confirmed By:Brice Hernandes
[2022-04-27] MEDS ORDERED: diphenhydrAMINE Capsule 25 MG CAP PO ONE (11:00)
--- NOTE | 2022-04-27 11:48 | Neurology Progress Note ---
Date of Service April 27, 2022 Assessment & Plan (1) Multiple sclerosis: Plan MRI repeat and CT head all negative. overall picture not suggestive of stroke. agree with Dr Stern's recommendations as noted yesterday. not much to add from neurology stand point. no need for permissive HTN. treat headache as needed as recommended. pt can follow up with neurology clinic as outpt as noted on yesterday neurology consultation. please call again if new question. nikolay escalante MD neurologist. Admission and Anticipated Discharge Date Admission Date: April 25, 2022 Results & Data ([facility]) Vital Signs (Past 12 Hours) Vital Signs Pulse Pulse Resp BP Pulse Ox O2 Del Method 04/27/22 11:22 66 14 98 Room Air 04/27/22 08:00 Room Air 04/27/22 08:00 Room Air 04/27/22 08:00 68 04/27/22 07:34 67 14 100 Room Air 04/27/22 06:00 68 14 92 04/27/22 06:00 119/60 04/27/22 05:00 62 17 04/27/22 05:00 105/53 L 04/27/22 04:00 57 L 13 96 04/27/22 04:00 123/62 04/27/22 03:00 54 L 12 95 04/27/22 03:00 117/60 04/27/22 02:00 59 L 16 04/27/22 02:00 112/60 04/27/22 01:00 70 15 94 04/27/22 01:00 119/66 04/27/22 00:48 64 17 95 04/27/22 00:48 118/61 04/27/22 00:00 65 14 97
--- NOTE | 2022-04-27 13:44 | Discharge Summary ---
Date of Service April 27, 2022 Admission HPI Per Admitting Provider Yani is a 66-year-old female with a past medical history of MS, spinal stenosis, B12 deficiency, hyperlipidemia, and no known history of diabetes who is receiving an infusion for MS when she developed left-sided weakness with dizziness and vision change at approximately [id number], was brought to the ER for evaluation. Telestroke was consulted, patient was recommended to get TNKase which was administered at 1520. Improving but without resolved symptoms following this. Patient is seen at the bedside. Also discussed with nursing staff. On admission patient had left-sided facial droop, arm weakness, leg weakness, and numbness of the left face. Left face was flaccid on attempted cheek puff. Patient had no resistance against gravity on initial assessment with a NIHSS of 13. On reassessment score is 12, but has a greatly reduced drift in left arm and leg compared to prior and facial asymmetry is improving. Some sensation returning to left facial touch. Patient seen at bedside with her present. She reports normally with her MS she has symptoms of generalized weakness in her lower extremities and fatigue, her current episode is completely different. She completed her infusion for MS this morning. Around 2:00 she had sudden onset left-sided arm and leg weakness, left-sided facial droop, and blurry/double vision. No nausea/vomiting, no chest pain, chest pressure. Reports she understood what was being said to her but she had difficulty speaking. Following TNKase she reports that she continues to feel weak on her left side, but less significantly than when she came in. Is still having some trouble speaking but speech is mostly fluent and she does not have any difficulty understanding speech or thinking of the correct words. She does endorse some blurry vision in her left eye, more peripheral and central. Denies history of bleeding/bleeding problems. Denies headache. No fever/chills/sweats. Medical History: Reviewed Medications: Reviewed Surgical History: Reviewed Allergies: Reviewed Social History: No tobacco use, no alcohol use Code Status: Full Discharge Data Allergies Allergy/AdvReac Type Severity Reaction Status Date / Time bee venom protein (honey bee) Allergy Severe THROAT Verified 04/25/22 16:24 SWELLING Gadolinium-Containing Allergy Severe THROAT Verified 04/25/22 16:24 Contrast Medi SWELLING WITH CT SCAN DYE amoxicillin Allergy Mild RASH Verified 04/25/22 16:24 hydromorphone [From Dilaudid] Allergy Mild Rash Verified 04/25/22 16:24 interferon beta-1a AdvReac Mild GI UPSET Verified 04/25/22 16:24 [From Avonex] Consultations 04/25/22 15:32 ED Decision to Admit Stat 04/25/22 17:39 Consult Polysomnography Technologist Routine Consult Neurology Routine Ordered Studies 04/25/22 14:48 CT angio head w con Stat CT angio neck with con Stat CT head/brain wo con Stat 04/25/22 17:39 MR brain wo con Routine 04/26/22 15:08 MR brain MS wo con Routine 04/26/22 15:30 CT head/brain wo con Routine Hospital Course (1) Acute left-sided weakness: 66yo infusion for MS. L sided weakness, numbness, facial drop CVA s/p TNKase - TNKase @ 1520, sx onset @1400. Improving but not resolved - Aspirin, no blood thinners - No bleed, NO angio findings - SBP goal less than 180, transferred to ICU for post TN K care Repeat CT at 24 hours MRI pending Neuro consulted, received full dose aspirin on admission Plavix recommendations pending MS Receives Ocrevus infusions which she took today. Anxiety/depression Continue sertraline 200 mg p.o. daily Spinal stenosis, chronic back pain Home diazepam, tizanidine, baclofen temporarily held pending swallow evaluation DVT prophylaxis: Indicated in the setting of TNKase Diet: N.p.o., pending speech swallow Disposition: ICU for per stroke protocol CODE STATUS: Full code (2) Depression: (3) Dysphagia: (4) Mild pulmonary hypertension: (5) Multiple sclerosis: Discharge Plan Discharge Items Patient Disposition: Home - Self-Care Reason For Visit: Left-sided Weakness Discharge Diagnosis: Left-sided weakness - resolved. Likely diagnosis - complicated migraine. Activity: As commented below Activity Comment: gradually increase as tolerated over the next week Sexual Activity: Wait until after follow-up appointment Exercise/Sports: Wait until after follow-up appointment Driving/Machine Use: May resume after seeing your family doctor next week Non-emergency contact: Primary Care Provider and Neurologist Call non-emergency contact if: you have any medication questions and your symptoms worsen Follow-up/Referrals: aSundra Burnette CRNP [Primary Care Provider] - Ricardo Jain MD [Physician] - (2-4 weeks) Diet: Heart Healthy Addtl Attending Provider Instructions: Mrs Reyes, You were hospitalized due to concern for a stroke. You were experiencing left-sided weakness. Upon presentation here you were seen by a stroke specialist at [place], and the clot - busting drug TKNase was given due to concern for acute stroke. After receiving this you were admitted to ICU for observation. Traditional stroke work-up imaging was done including CTAs of the head/neck which did not show any major blockages of any vessels of the head/neck, an MRI Brain which showed no obvious stroke (some MS lesions were seen as expected), and an echocardiogram which was normal. A repeat CT head did NOT show any bleeding after receiving the clot-busting drug. You were seen by [facility] and, given that your symptoms started after you had developed a headache, it was felt that this was likely a "complicated" or "complex" migraine. These types of migraines can mimic a stroke. At this time we recommend the following - 1. A 30-day event monitor to exclude a.fib which can be a risk factor for strokes and stroke-like events. 2. Discontinue sumatriptan for your migraine headaches. 3. [facility] migraine medication as needed. Dosing -- 75mg by mouth at the start of a migraine headache. The dose can be repeated in 2 hours if necessary. Maximum of 2 doses in 24 hours. 4. Ok to continue on aspirin once daily as you were previously doing. 5. Your LDL cholesterol - also known as "bad" cholesterol - was just over 200. For most people we like the level to be less than 100. Please talk to your family doctor about ways to reduce this level. 6. Follow-up - see separate section. Return to [facility] if - * you have any symptoms of stroke, with or without a headache - including but not limited to weakness of any limb, difficulty speaking, difficulty swallowing, numbness of a limb, severe vertigo/spinning, difficulty walking, etc. * again, even if you have what seems like a typical migraine headache, and you develop neurological symptoms like what you experienced this admission - please seek medical attention right away It was our pleasure to care for you at [facility]! Dr Neal Pending Studies at Discharge: No Stand-Alone Forms: [facility] [employer], Smoking Cessation, Medications to Prevent Stroke Medications and DC Order Prescriptions: New Nurtec ODT 75 mg tablet,disintegrating 75 mg PO Q2H PRN (Reason: migraine headache) Qty: 10 0RF Rx Instructions: max of 2 doses in 24 hours Continued Ocrevus 30 mg/mL solution 600 mg IV Q6MO Qty: 20 1RF Rx Instructions: 30 minutes before each infusion, premedicate with methylprednisolone 100mg IV, diphenhydramine 25mg IV, and acetaminophen 500mg PO. May give an additional 25mg diphenhydramine IV during infusion PRN. Keep rate at 160mL/hr at 90 minutes until end of infusion. tizanidine 2 mg tablet 4 mg PO TID PRN (Reason: muscle spasticity) Qty: 120 6RF diazepam [Valium] 5 mg tablet 5 mg PO .COMPLEX PRN (Reason: muscle spasms ) Qty: 60 1RF Rx Instructions: 5 mg PO IN THE AM, 5MG IN THE AFTERNOON AND 10MG QHS PRN albuterol sulfate [ProAir HFA] 90 mcg/actuation HFA aerosol inhaler 1 - 2 puff INHALATION Q4H PRN (Reason: Shortness Of Breath) Qty: 8.5 5RF oxcarbazepine [Trileptal] 150 mg tablet 150 mg PO BID Qty: 60 6RF gabapentin 800 mg tablet 800 mg PO QID 30 Days Qty: 120 5RF baclofen 20 mg tablet 20 mg PO TID Qty: 270 3RF cholecalciferol (vitamin D3) 50 mcg (2,000 unit) capsule 50 mcg PO QAM Cbd Oil 0.25 drp PO HS PRN (Reason: muscle spasms) sertraline [Zoloft] 100 mg tablet 200 mg PO QPM aspirin [Ecotrin Low Strength] 81 mg tablet,delayed release (DR/EC) 81 mg PO QPM Discontinued sumatriptan succinate [Imitrex] 100 mg tablet 100 mg PO DIRECTED PRN (Reason: migraine headache) Qty: 27 3RF Discharge Orders: Discharge Order (Routine); Ordered 04/27/22 Ordered By: Isaiah Neal Admission Data Admit Date/Time: 04/25/22 16:13 Attending Provider: Isaiah Neal Admit Provider: Avi Rocha Primary Care Provider: Saundra Burnette Other Providers: Avi Rocha ; Jamal Starr ; Ricardo Jain Coding Diagnoses Acute left-sided weakness R53.1 Depression F32.9 Dysphagia R13.10 Mild pulmonary hypertension I27.20 Multiple sclerosis G35
== END 2022-04-27 14:31 | disposition home or self-care (01) | DRG 103 ==
LOC: ED 14:41 → SUATTDRO 16:13 → 1E 16:13

== ENCOUNTER 2022-09-24 08:53 | Inpatient (IN) ==
--- NOTE | 2022-09-18 13:32 | Anesthesiology Consultation ---
Date of Service September 18, 2022 Assessment & Plan (1) Encounter for pre-operative examination: Plan - pt overdue for neurology appt. Case discussed with Dr. Sanderson who advised if left sided weakness and vertigo resolved for pt she can proceed with surgery. Patient was contacted by myself and she states that left sided weakness and vertigo fully resolved, denies new or worsened symptoms since seeing neurology. - s/p left TKA 07/21/21 LMA#4 + PNB. bolus not ordered for 09/24/22 surgery-to anesthesiologist discretion/anesthesia plan. - cardiology 05/09/22 [place]: "...Stable palpitations. No sustained palpitations. Prior monitoring has revealed no significant arrhythmia. During her complaints of palpitations no significant ectopy was noted. Continued episodes of postural lightheadedness. Continue dyspnea. Do not suspect cardiac etiology...diminished air movement on exam...secondary to her muscular weakness from her multiple sclerosis. No evidence of heart failure on exam. No definite orthopnea. No PND. She appears euvolemic on exam. Recent echo with continued normal LV systolic function. She does have mitral and tricuspid regurgitation. However, no conclusive signs or symptoms referable to this valvular regurgitation. Her LV systolic function and size remain normal. No anginal-type complaints. Dyslipidemia. Markedly elevated LDL...encouraged to remain well hydrated. Avoid standing. She already has diffuse muscular complaints. She declines statin therapy. She declines treatment for her dyslipidemia. Follow-up visit with me in 6 months. Yearly echocardiogram to monitor valvular regurgitation, LV size, LV and RV function, and intracardiac pressures..." 1. Normal signal of the cervical spinal cord. 2. Anterior plate and screw fusion at C4-C6. 3. No high-grade central canal or neural foraminal narrowing. - neuro 05/18/22 [place]: "...Complicated migraine: avoid triptans, use nurtec qd prn left sided weakness improved, left arm still not back to baseline before admission. Vertigo: likely flare of vestibular dysfunction from MS PT referral. Multiple sclerosis: labs and MRI up to date. continue Ocrevus. sees dr soria in july..." - COVID screening: Per fleet service clerk on 09/18/2022: Travel screen negative, no known COVID-19 positive contacts or current COVID-19 related symptoms in past 2 weeks. To surgeon's discretion if preop COVID testing is needed. Chart Review Chart Review: Acceptable Risk for Surgery and Patient NOT seen in Pre Admission Testing History Surgery Operation Date: 09/24/22 12:00 Proposed Procedures p Left Total Knee Arthroplasty Revision - Jamal Nguyen DO Height/Weight Height: 5 ft 3 in Weight: 66.678 kg Allergies Allergy/AdvReac Type Severity Reaction Status Date / Time bee venom protein (honey bee) Allergy Severe THROAT Verified 09/18/22 11:21 SWELLING amoxicillin Allergy Mild RASH Verified 09/18/22 11:21 hydromorphone [From Dilaudid] Allergy Mild Rash Verified 09/18/22 11:21 interferon beta-1a AdvReac Mild GI UPSET Verified 09/18/22 11:21 [From Avonex] Medications Home Medications Medication Instructions Recorded Confirmed Last Taken Cbd Oil 0.25 drp PO HS PRN muscle spasms 06/02/19 09/18/22 07/05/21 21:00 cholecalciferol (vitamin D3) 50 50 mcg PO QAM 05/11/21 09/18/22 07/20/21 08:00 mcg (2,000 unit) capsule ocrelizumab 30 mg/mL intravenous 600 mg (20 mL) IV Q6MO multiple 11/10/21 09/18/22 04/25/22 solution (Ocrevus) sclerosis #20 mL albuterol sulfate 90 mcg/actuation 1 - 2 puff inhalation Q4H PRN 02/01/22 09/18/22 Unknown aerosol inhaler (ProAir HFA) Shortness Of Breath #8.5 grams aspirin 81 mg tablet,delayed 81 mg PO QPM 04/25/22 09/18/22 Unknown release (Ecotrin Low Strength) Wheelchair (Manual) (Manual #1 ea 05/18/22 09/10/22 Unknown Wheelchair) tizanidine 2 mg tablet 4 mg PO TID PRN muscle spasticity 05/18/22 09/18/22 Unknown #120 tabs sertraline 100 mg tablet (Zoloft) 200 mg PO QPM 30 days #60 tabs 07/20/22 09/18/22 Unknown baclofen 20 mg tablet 20 mg PO BID 07/23/22 09/18/22 Unknown gabapentin 400 mg capsule 400 mg PO BID 07/23/22 09/18/22 Unknown medical marijuana 1 dose PO UD PRN Pain 07/23/22 09/18/22 Unknown diazepam 5 mg tablet (Valium) 10 mg PO HS 09/18/22 09/18/22 Unknown oxycodone-acetaminophen 5 mg-325 1 tab PO Q6H PRN pain #30 tabs 09/18/22 09/18/22 Unknown mg tablet (Percocet) Past Medical History Medical History (Updated 09/18/22 @ 13:21 by Diana Funes PA-C) Depression Dysphagia H/O migraine History of COVID-19 DX'D HOME TEST EARLY 04/2021-"SNIFFLES" > RESOLVED Hx of chronic bronchitis LAST INHALER USE 2-3 MONTHS Mild pulmonary hypertension Multiple sclerosis DIAGNOSED 1990-F/U DR SORIA WEAKNESS LEFT FACE AND RIGHT FOOT Muscle spasm LEGS R/T MS Personal history of transient ischemic attack (TIA), and cerebral infarction without residual deficits 1991 > no residual effects Stress incontinence RELATED TO MS Past Family History Family History Mother Diabetes Stroke Sister Diabetes Hypertension Other No family history of adverse response to anesthesia Denies family history of Ovarian cancer Prostate cancer Myocardial infarction Breast cancer Colorectal cancer Past Surgical History Surgical History (Updated 09/18/22 @ 13:21 by Diana Funes PA-C) History of arthroscopy LEFT KNEE AND RIGHT History of cataract surgery LEFT/RIGHT History of section X3 History of hysterectomy History of repair of rotator cuff RIGHT 10/08/19 LMA#4 + PNB History of surgery PORT PLACEMENT (BARD POWER PORT)-REMAINS IN PLACE LEFT UPPER CHEST History of surgery LEFT CLAVICLE History of total left knee replacement (TKR) 07/21/21 LMA#4 + PNB Hx of cervical spine surgery "FUSION" - PT REPORTS FULL ROM Hx of colonoscopy Hx of elbow surgery RIGHT Hx of ovarian cystectomy X5 Hx of spinal surgery X5 - TOTAL OF 5 BACK SURGERIES/1 CERVICAL SURGERY - HAS HARDWARE Hx of surgical amputation of finger RIGHT SMALL FINGER D/T INFECTION 40 YR AGO Social History Smoking Status: Never smoker Do You Dip or Chew Tobacco: No Hx Alcohol Use: Yes Alcohol type: beer alcohol intake frequency: holidays/special occasions only Hx Substance Use: Yes substance use type: marijuana Substance Use Type Other:: MEDICAL MARIJUANA CARD-TINCTURE PRN FOR MUSCLE SPASMS Last Used Substance: Days (ago) Last Used Substance Other:: USES EVERY OTHER DAY - DEPENDING ON SPASTICITY Lab Results Anesthesia Preop Results Results Anesthesia Widget: WBC 4.64 K/ul (4.8-10.8) L 09/18/22 Hgb 13.9 g/dl (12.0-16.0) 09/18/22 Hct 40.3 % (37.0-47.0) 09/18/22 Plt 232 K/uL (130-400) 09/18/22 Na 140 mmol/L (136-145) 09/18/22 K 4.1 mmol/L (3.5-5.1) 09/18/22 Cl 104 mmol/L (98-107) 09/18/22 CO2 30 mmol/L (21-32) 09/18/22 BUN 16 mg/dl (6-23) 09/18/22 Creat 0.68 mg/dl (0.6-1.2) 09/18/22 Glucose Level 91 mg/dl (70-99(Fasting)) 09/18/22 PT 10.9 Seconds (9.0-12.0) 09/18/22 PTT 26.2 Seconds (21.0-31.0) 09/18/22 INR 1.0 (0.9-1.1) 09/18/22 Blood Type A Positive 09/18/22 Antibody Screen NEGATIVE 09/18/22 Testing Electrocardiogram Date: 09/18/22 Sinus bradycardia, rate 54 bpm Rightward axis Chest X-Ray Date: 09/18/22 No acute chest disease Echocardiogram Date: 04/26/22 EF 55-60% No regional wall motion abnormalities No LVH Mild to moderate mitral regurgitation Moderate tricuspid regurgitation Type I diastolic dysfunction Cervical Spine Date: 01/24/22 MRI 1. Normal signal of the cervical spinal cord. 2. Anterior plate and screw fusion at C4-C6. 3. No high-grade central canal or neural foraminal narrowing. Other Testing Cardiac monitoring 06/12/22 20 days Underlying rhythm: sinus Min 48 bpm, avg 69, max 132 Rare PVC and supraventricular beats, less than or equal to 1% of all beats, no ectopy more complex than the isolated supraventricular and ventricular beats Brain MRI 04/26/22 Redemonstration of multiple white matter lesions, similar to prior exam. No new lesions are seen to suggest active demyelination in the interval. Neck CTA 04/25/22 1. There is no evidence of hemorrhage, mass effect, or acute territorial ischemia noting angiographic phase technique. 2. Unremarkable CT angiogram of the brain. 3. There is mild/moderate stenosis at the origin of the left vertebral artery. 4. Otherwise unremarkable CT angiogram of the neck.
[~2022-09-24 08:53] MED LIST changes: -BUPIVACAINE 0.25% 30 ML VIAL ONE; -DEXAMETHASONE SOD INJ 4 MG/ML VIAL ONE; -EPINEPHrine INJ 1 MG/ML AMP ONE; -Ketorolac (*for OR use only*) 30 MG, dexAMETHasone 4 MG, KETAMINE HCL (**OR use only) 1... INFIL SCH; -LACTATED RINGER'S 1,000 ML IV SCH; +LR 15ML/HR IV SCH; +LR 60ML/HR IV SCH; +ORTHO JOINT MIX INFIL SCH; +ROPIVACAINE 0.5% 5 MG/ML 30 ML VIAL ONE; -ceFAZolin 1000MG 1,000 MG/7.5 ML SYR IV SCH; +ceFAZolin 2000MG 2,000 MG/15 ML SYR IV SCH
[2022-09-24] MEDS ORDERED: fentaNYL citrate PF 100 MCG/2 ML VIAL ONE ×2 (10:51→12:46)
[2022-09-24] MEDS ORDERED: PROPOFOL IV EMULSION 10 MG/ML 20 ML VIAL IV ONE ×3 (10:51→14:04)
[2022-09-24] MEDS ORDERED: LIDOCAINE 2% 2 ML VIAL/AMP(20MG/ML) INFIL ONE ×2 (10:51→11:49)
[2022-09-24] MEDS ORDERED: MIDAZOLAM HCL 1 MG/ML 2ML VIAL ONE (10:51)
[2022-09-24] MEDS ORDERED: ePHEDrine sulfate 50 MG/ML AMP IV PRN (11:18)
[2022-09-24] MEDS ORDERED: ONDANSETRON INJ 2 MG/ML 2 ML VIAL IV PRN ×2 (11:18→16:36)
[2022-09-24] MEDS ORDERED: ATROPINE SULFATE 0.1 MG/ML 10ML SYR IV PRN (11:18)
[2022-09-24] MEDS ORDERED: fentaNYL citrate PF 100 MCG/2 ML VIAL IV PRN (11:18)
--- NOTE | 2022-09-24 11:19 | History & Physical Bridge Note ---
Date of Service September 24, 2022 History & Physical Bridge Note I have examined the patient, reviewed the History & Physical and in the interval since the performance of the History & Physical I have noted the following changes of clinical significance: no changes noted
[2022-09-24] MEDS ORDERED: ORTHO JOINT ANESTHETIC ONE (11:43)
[2022-09-24] MEDS ORDERED: ONDANSETRON INJ 2 MG/ML 2 ML VIAL ONE (11:50)
[2022-09-24] MEDS ORDERED: DEXAMETHASONE SOD INJ 4 MG/ML VIAL ONE ×2 (11:50→12:30)
[2022-09-24] MEDS ORDERED: GLYCOPYRROLATE 0.2 MG/ML VIAL ONE (12:24)
[2022-09-24] MEDS ORDERED: ePHEDrine sulfate 50 MG/ML SYR ONE (12:28)
[2022-09-24] MEDS ORDERED: KETAMINE 50 MG/5 ML SYRINGE ONE (14:05)
--- NOTE | 2022-09-24 14:56 | Operative Report ---
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 I identified the patient and participated in the time-out.: Yes Procedure Operation Date: 09/24/22 12:00 Actual Procedures p Left Total Knee Arthroplasty Revision of both femoral and tibial components. (Left) - Jamal Nguyen DO Surgeon Jamal Nguyen DO Crusher Machine Operator Jamal Issa PA-C Estimated Blood Loss 50 Findings Consistent with Post-Op Diagnosis Lateral instability of the left knee Specimens None Indications Yani is a pleasant six 7-year-old female who has a history of multiple sclerosis. She underwent a left knee replacement a little over a year ago. She did well for the first 3 months. She then had a fall. Since that time she has been having significant pain in the left knee. I been treating it conservatively for the past year. All infection markers were negative. The x-rays looked okay. Bone scan showed some questionable loosening. She cannot live with the knee the way it was. She would have some swelling throughout the day. She said it hurt with every step she took. The decision was made to do a revision knee replacement surgery. Description of Procedure On September 24, 2022 Yani arrived at [facility] for the above procedure. She was seen in the preoperative holding area and the operative extremity was identified and signed. She was given a preoperative antibiotic. She was taken back to the operating room and put under general anesthesia. The left knee was prepped and draped in sterile fashion. A timeout was done. The patient and the operative extremity was properly identified. On preoperative physical examination, she had good range of motion of her knee but she did have some lateral ligamentous instability. Can easily put her into varus. She did not seem to have any valgus instability. A midline incision was opened back up. Dissection was taken down to the extensor mechanism. A mid vastus arthrotomy was used. There was normal synovial fluid in the knee joint and no signs of infection. The polyethylene implant was then removed. Time was spent removing some scar tissue around the medial lateral gutters, however, there was not much scar. The tibia was then exposed. Time was spent with a bone tamp hitting on the tibial implant. I do not see any signs of loosening Time was then spent with a bone tamp on the femoral component and there was no signs of loosening. She was having a lot of pain in her knees so I decided to give her a more stabilized knee by revising both the femoral and tibial components to a CCK revision system. The femoral component was removed first. This was removed using a oscillating saw and a bone tamp. Once this was removed the tibial component was exposed. The tibia was removed with an oscillating saw and a bone tamp. Time was then spent removing any remaining cement. The tibia was then prepared first. Sequential reaming up to a size 10 reamer was done. Off that reamer a size C tibia seem to be the best fit. A +3 offset was used to dial in proper rotation. The remaining of the proximal tibial canal was then prepared. The trial size C tibia with a 3 mm offset and a 135 mm size 10 splined stem extension was impacted into place. I was happy with the overall fit. The femur was then exposed. Sequential reaming of the femoral canal up to a size 13 reamer was done. A distal cutting block was placed in the distal femoral cut was freshened up. A 4-in-1 cutting block was placed in anterior posterior and chamfer cuts were then made. The femur measured to be a size 5. No offset was needed with the stem. The size 5 femoral implant with a 13 mm stem was then impacted into place as a trial. I had more of a gap and I was hoping. I added 5 mm augments to the distal femur and 10 mm augments to the proximal tibia. This significantly improved my alignment in my gaps. A size 14 CCK polyethylene insert was then trialed in place. The knee was brought through a full range of motion and felt to be stable. I was happy with the overall alignment. The trial implants were then all removed. The final [employer] persona PRK implants were then cemented in the place with Palacos G cement. Cement was placed around the metaphyseal region and on the bottom of the implants only. Once cement had hardened, a size 14 mm polyethylene insert seem to be the best size. The final size 14 implant was then snapped into place. The screw was then tensioned. The knee was brought through full range of motion and felt to be stable. I was happy with the overall joint line. The wound was then irrigated. A 3-minute Betadine lavage was then done. Surrounding soft tissues were injected with 100 cc of an orthopedic pain control cocktail. The mid vastus arthrotomy was then closed with #1 Vicryl suture. Skin was closed with 2-0 Vicryl, 3 oh VueLock, and eleonora. She was then placed in a soft compressive dressing. She was then extubated and transferred to a hospital bed. She was taken to the postanesthesia care unit in stable condition. She tolerated the procedure well. Jamal Issa PA-C, was present for the entire procedure. He was critical for patient positioning, prepping, draping, retraction exposure, wound closure and application of sterile dressing. I attest to the content of the Intraoperative Record and any orders documented therein. Any exceptions are noted below.
--- NOTE | 2022-09-24 15:58 | XRay Report ---
XR knee LT 1 or 2V routine HISTORY: 67 years-old Female Surgical Post Op left knee arthroplasty COMPARISON: Knee radiographs 08/21/2022 TECHNIQUE: 2 views of the left knee FINDINGS: Total joint arthroplasty with patellar resurfacing. Anterior midline skin eleonora are noted along wit h expected postoperative soft tissue swelling with deep tissue air. No acute fracture, dislocation or unexpected opaque foreign body. IMPRESSION: Total joint arthroplasty with expected postoperative changes. ACT 112: Negative or not required by law. The above report was generated using voice recognition software. It may contain grammatical, syntax o r spelling errors. Electronically signed by: Mario Jacobsen M.D. 09/24/2022 3:56 PM
--- NOTE | 2022-09-24 16:18 | Anesthesiology Progress Note ---
Date of Service September 24, 2022 Anesthesia Post Procedure Vital Signs Vital Signs: Temp Pulse Pulse Resp BP Pulse Ox O2 Del Method 09/24/22 16:05 97.5 F L 76 15 104/52 L 96 Nasal Cannula 09/24/22 15:55 81 12 99/42 L 97 Room Air 09/24/22 15:45 79 13 112/56 L 100 Oxymask 09/24/22 15:35 83 14 118/63 100 Oxymask 09/24/22 15:25 73 12 111/56 L 99 Oxymask 09/24/22 15:15 97.3 F L 78 22 100/49 L 98 Oxymask 09/24/22 10:10 97.9 F 72 20 95 Room Air O2 Flow Rate 09/24/22 16:05 3 09/24/22 15:55 09/24/22 15:45 5 09/24/22 15:35 5 09/24/22 15:25 5 09/24/22 15:15 5 09/24/22 10:10 Pain Intensity Left Knee: Pain Intensity: 4 Transfer of Care Handoff Completed per policy Notes Mental Status: alert / awake / arousable and participated in evaluation Patient Amnestic to Procedure: Yes Nausea / Vomiting: adequately controlled Pain: adequately controlled Airway Patency, RR, SpO2: stable & adequate BP & HR: stable & adequate Hydration State: stable & adequate Anesthetic Complications: no major complications apparent and Pt Satisfied with anesthetic care
[2022-09-24] MEDS ORDERED: bisacodyL 10 MG SUPP PR PRN (16:36)
[2022-09-24] MEDS ORDERED: NALOXONE HCL 0.4 MG/1 ML VIAL/CARP IV PRN (16:36)
[2022-09-24] MEDS ORDERED: MAGNESIUM HYDROXIDE SUSP 30 ML UDC PO PRN (16:36)
[2022-09-24] MEDS ORDERED: HYDROmorphone INJ 0.5 MG/0.5 ML SYR IV PRN (16:36)
[2022-09-24] MEDS ORDERED: METOCLOPRAMIDE HCL INJ 5 MG/ML 2 ML VIAL IV PRN (16:36)
[2022-09-24] MEDS ORDERED: ALBUTEROL HFA 8 GM INHALER INH PRN (16:36)
[2022-09-24] MEDS: oxyCODONE HCL IR 5 MG TAB (IMMEDIATE RELEASE) PO PRN ×2 (16:58→20:52)
[2022-09-24] MEDS: SODIUM CHLORIDE 0.9% 1000ML 1,000 ML IV SCH (17:41)
[2022-09-24] MEDS: KETOROLAC TROMETHAMINE 15 MG/ML VIAL IV SCH ×2 (17:42→21:53)
[2022-09-24] MEDS: GABAPENTIN 400 MG CAP PO SCH (19:24)
[2022-09-24] MEDS: BACLOFEN 20 MG TAB PO SCH (19:25)
[2022-09-24] MEDS: tiZANidine HCL 4 MG TABLET PO PRN (19:33)
[2022-09-24] MEDS: DOCUSATE SODIUM 100 MG CAP PO SCH (20:49)
[2022-09-24] MEDS: SERTRALINE HCL 100 MG TABLET PO SCH (20:49)
[2022-09-24] MEDS: ASPIRIN 81 MG ECTAB PO SCH (20:49)
[2022-09-24] MEDS: SENNA 8.6 MG TAB PO SCH (20:49)
[2022-09-24] MEDS ORDERED: diazePAM 5 MG TABLET PO PRN (21:00)
[2022-09-24] MEDS: ACETAMINOPHEN 500 MG TAB PO SCH (21:54)
[2022-09-24] MEDS: ceFAZolin 2000MG 2,000 MG/15 ML SYR IV SCH (21:54)
[2022-09-25] MEDS ORDERED: HEPARIN 100 UNIT/ML 5ML FLUSH FLUSH PRN (01:19)
[2022-09-25] MEDS: SODIUM CHLORIDE 0.9% 1000ML 1,000 ML IV SCH ×3 (03:03→20:06)
[2022-09-25] MEDS: oxyCODONE HCL IR 5 MG TAB (IMMEDIATE RELEASE) PO PRN ×4 (03:09→15:28)
[2022-09-25] MEDS: ACETAMINOPHEN 500 MG TAB PO SCH ×3 (05:13→22:00)
[2022-09-25] MEDS: KETOROLAC TROMETHAMINE 15 MG/ML VIAL IV SCH ×4 (05:13→22:00)
[2022-09-25] MEDS: ceFAZolin 2000MG 2,000 MG/15 ML SYR IV SCH (05:13)
--- NOTE | 2022-09-25 07:06 | Orthopedic Progress Note ---
Date of Service September 25, 2022 Assessment & Plan (1) Status post revision of total replacement of left knee: Overall she is doing fairly well. She is not having much pain in the left knee. She will be seen by physical therapy today for ambulation and range of motion exercises. She is on aspirin for DVT prophylaxis. We will see how she does today with physical therapy. If she feels comfortable going home she can be discharged home. Otherwise, she can stay until tomorrow. She does have MS but she has good family support at home. Dressing can be changed after physical therapy today. Lakeisha Lomeli was seen and examined at bedside this morning. Overall she is doing fairly well. She is not having too much pain in the left knee. She has been up and ambulating to the bathroom without much pain. She has no complaints.. Review of Systems All systems reviewed & are unremarkable except as noted in HPI & below. Physical Exam On physical examination of the left knee, the dressing is clean and dry. Her leg is out full extension. She has active dorsiflexion plantarflexion of her left ankle.. Results & Data Results & Data Laboratory Results . Diagnostic Findings Postoperative x-rays of the left knee show the prosthesis to be in good alignment without any evidence of fracture, desiccation, or loosening.. PG Care Time/CCT Total # of Minutes Spent Total Time Spent with Patient: Total time spent is greater than 50% in coordination of care (as documented) at patient's floor/unit and/or counseling patient: Coding Level of Care Code 49412 Post Operative Follow-Up Diagnoses Status post revision of total replacement of left knee Z96.652
[2022-09-25] MEDS ORDERED: dexAMETHasone 4 MG TAB PO SCH (08:00)
[2022-09-25] MEDS: ASPIRIN 81 MG ECTAB PO SCH ×2 (08:26→20:06)
[2022-09-25] MEDS: BACLOFEN 20 MG TAB PO SCH ×2 (08:26→20:06)
[2022-09-25] MEDS: diazePAM 5 MG TABLET PO SCH ×3 (08:26→22:00)
[2022-09-25] MEDS: tiZANidine HCL 4 MG TABLET PO PRN ×2 (08:26→16:40)
[2022-09-25] MEDS: GABAPENTIN 400 MG CAP PO SCH ×2 (08:26→20:06)
[2022-09-25] MEDS: DOCUSATE SODIUM 100 MG CAP PO SCH ×2 (08:27→20:06)
[2022-09-25] MEDS: MULTIVITAMIN TAB PO SCH (08:27)
[2022-09-25 09:24] LABS: Hematocrit (blood only) 30.1 % (37.0-47.0); Hemoglobin 10.3 g/dl (12.0-16.0)
[2022-09-25] MEDS: SERTRALINE HCL 100 MG TABLET PO SCH (20:06)
[2022-09-25] MEDS: SENNA 8.6 MG TAB PO SCH (20:06)
[2022-09-26] MEDS: ACETAMINOPHEN 500 MG TAB PO SCH (04:57)
[2022-09-26] MEDS: KETOROLAC TROMETHAMINE 15 MG/ML VIAL IV SCH ×2 (04:57→11:18)
--- NOTE | 2022-09-26 07:22 | Orthopedic Progress Note ---
Date of Service September 26, 2022 Assessment & Plan (1) Status post revision of total replacement of left knee: Overall she is doing very well. She is not having much pain in the left knee. She is little bit of surgical soreness. She seems better today. Her blood pressure still little bit low at 95/56. We will see how she does today with physical therapy. If she is up and ambulating with physical therapy and she does not feel lightheaded, she can be discharged home. The nursing staff can change her dressing today. Lakeisha Lomeli was seen and examined at bedside this morning. Overall she is doing very well. She is not having too much pain in the left knee. She says she will she ambulates with physical therapy her preoperative knee pain is gone. She is feeling better today. She has no complaints.. Review of Systems All systems reviewed & are unremarkable except as noted in HPI & below. Physical Exam On physical examination of her left knee, the dressing is clean and dry. Her leg is out full extension. She has active dorsiflexion plantarflexion of her left ankle.. Results & Data Results & Data Laboratory Results . Diagnostic Findings . PG Care Time/CCT Total # of Minutes Spent Total Time Spent with Patient: Total time spent is greater than 50% in coordination of care (as documented) at patient's floor/unit and/or counseling patient: Coding Level of Care Code 36975 Post Operative Follow-Up Diagnoses Status post revision of total replacement of left knee Z96.652
[2022-09-26] MEDS: GABAPENTIN 400 MG CAP PO SCH (08:31)
[2022-09-26] MEDS: DOCUSATE SODIUM 100 MG CAP PO SCH (08:34)
[2022-09-26] MEDS: MULTIVITAMIN TAB PO SCH (08:34)
[2022-09-26] MEDS: ASPIRIN 81 MG ECTAB PO SCH (08:34)
[2022-09-26] MEDS: BACLOFEN 20 MG TAB PO SCH (08:34)
[2022-09-26] MEDS: diazePAM 5 MG TABLET PO SCH (08:39)
[2022-09-26] MEDS: oxyCODONE HCL IR 5 MG TAB (IMMEDIATE RELEASE) PO PRN (11:17)
== END 2022-09-26 11:40 | disposition home or self-care (01) | DRG 468 ==
LOC: ASU 08:53 → 3W 15:17